=== PATIENT | female | born 1985 | race Caucasian/White ===

== ENCOUNTER → 2018-02-09 10:32 | Outpatient (CLI) | payer OTHER, SELFPAY ==
[2018-02-09 10:02] VITALS: BMI 28.5
== END ==
PROVIDERS: Family Provider Family Medicine; PCP Family Medicine; Visit Provider Obstetrics & Gynecology
DX: Z34.90 Encounter for supervision of normal pregnancy, unspecified, unspecified trimester (principal)
CPT/HCPCS: 36415

== ENCOUNTER → 2018-02-23 09:12 | Outpatient (CLI) | payer OTHER, SELFPAY ==
[2018-02-09 10:02] VITALS: BMI 28.5
--- NOTE | 2018-02-23 | ASPOS_PTH ---
PATIENT: GUS KELLEY LOC: LAB U#:[id number] AGE/SX: 39/F ROOM: RE02/23/[address]: Dr. Chuy Ugalde MD : 1985 BED: DIS: SPEC #: [id number] RECD: 02/23/18 10:38 STATUS: KRISSY REAimee #: [id number] FELIPA: 02/23/18 00:[address]: Chuy Ugalde DEPT: CYTOLOGY RECD BY: Elvin Martin ENTERED: 02/23/18 10:38 SP TYPE: ASP HERE OTHR DR: Dr. Hari Stokes MD Tissues: Preauricular region Procedures: Pap Stain (control) Special Stain Group II Surgery Specimen Level IV Diff Quik Stain (control) Cell Block Cytology Other Fine Needle Asp on Site HEADER OPERATION: Right preauricular mass FNA PRE-OP DIAGNOSIS: Right preauricular mass TISSUE SUBMITTED: Right preauricular mass FNA, smear and fluid for cytology and cell block DIAGNOSIS CYTOLOGY Fine needle aspiration, right parotid/free auricular mass (smears and cell block): Consistent with benign salivary gland cyst. MERCY:erin 02/26/18 COMMENT The specimen is evaluated at the time of FNA by Dr. Garcia. Immediate Evaluation = Consistent with benign cyst contents. CYTOLOGY STUDY Slides are reviewed. CYTOLOGY GROSS Received is 0.5 ml of reddish fluid labeled with the patient's name, and designated right preauricular mass FNA. Four imprints and one pap are made from the submitted fluid and the rest is added to CytoLyt for cell block preparation. Submitted for cytology study. AM:mei 02/23/18 TC: 5 CPT: 65611, 81342, 57535, 17551
--- OUTSIDE RECORDS SUMMARY | 2018-04-29 16:08 | XMS RPT_ITS ---
:1985 Author Organization OHIP Care Team Providers Name Role Phone JOSE ROBERTO QUINTON Attending Unavailable ALYSHA FREIRE Referring Unavailable AVI PRIMARY MD SILVESTRE Primary Care Unavailable Alysha Freire Attending Unavailable Hari Stokes Referring Unavailable Alysha Freire Attending Unavailable Hari Stokes Primary Care Unavailable Hari Stokes Attending Unavailable Anthony Ugalde Attending Unavailable Anthony Ugalde Referring Unavailable Hari Stokes Primary Care Unavailable Peyton Gotti Attending Unavailable Hari Stokes Referring Unavailable aHri Stokes Primary Care Unavailable PROBLEMS PROBLEMS DATE TYPE CONDITION / CODE ATTENDING STATUS SOURCE 02/22/2018 Unknown Z34.90 - Encounter Nathanaelanthalice, Active [place] for supervision of [facility] normal , Hospital unspecified, Repository unspecified trimester / Z34.90(ICD-10) 02/09/2018 Unknown Z3A.16 - 16 weeks Marcanthalice, Active [place] gestation of [facility] / Hospital Z3A.16(ICD-10) Repository 02/09/2018 Unknown O99.820 - Marcanthony, Active [place] Streptococcus B [facility] complicating Repository / O99.820(ICD-10) 02/09/2018 Unknown Z34.02 - Encounter Marcanthalice, Active [place] for supervision of [facility] normal first Hospital , second Repository trimester / Z34.02(ICD-10) 02/09/2018 Unknown Z23 - Encounter for Tani, Active [place] immunization / [facility] Z23(ICD-10) Hospital Repository 06/19/2017 Unknown N92.6 - Irregular Shen, Peyton Active [place] menstruation, [facility] unspecified / Hospital N92.6(ICD-10) Repository PROCEDURES PROCEDURES No Procedure Records FoundRESULTS RESULTS ASP DONE IN LAB Observed: 02/23/2018 Status: F Source: [place] 12:00 AM [facility] REPOSITORY Patient: GUS KELLEY : 1985 () Acct Num: [id number] Phys: Tram GONZALEZ,[place] Unit Num: [id number] Loc: LAB Specimen: [id number] Received: 02/23/18 - 1038 Spec Type: ASP HERE TISSUES 1 TISSUES: Preauricular region COMMENT The specimen is evaluated at the time of FNA by Dr. Garcia. Immediate Evaluation = Consistent with benign cyst contents. CYTOLOGY GROSS Received is 0.5 ml of reddish fluid labeled with the patient's name, and designated right preauricular mass FNA. Four imprints and one pap are made from the submitted fluid and the rest is added to CytoLyt for cell block preparation. Submitted for cytology study. AM:mei 02/23/18 TC: 5 CPT: 79229, 27816, 61315, 30585 CYTOLOGY STUDY Slides are reviewed. DIAGNOSIS CYTOLOGY Fine needle aspiration, right parotid/free auricular mass (smears and cell block ): Consistent with benign salivary gland cyst. AM:erin 02/26/18 HEADER OPERATION: Right preauricular mass FNA PRE-OP DIAGNOSIS: Right preauricular mass TISSUE SUBMITTED: Right preauricular mass FNA, smear and fluid for cytology and cell block Signed Doni Garcia DO 02/26/18 <signature on file> Performed By: #### PASPOS #### [facility] [address] [place], [address] MISCELLANEOUS LAB Collected: 02/09/2018 Status: F Source: [place] PROCEDURE 10:46 AM [facility] REPOSITORY Order Comment: Comments: [id number] a-Fetoprotein (AFP), Maternal Serum for Test(s) Ordered: [id number] a-Fetoprotein (AFP), Maternal Serum for TYPE CODE TESTS RESULT OUT OF RANGE REFERENCE UNITS LAB L801.1541 Normal [facility] TEST Result Comment: TEST RESULT LIMITS AFP, Serum, Open Spina Bifida Results Report Test Results: *Screen Negative* Gest. Age on Collection Date 16.7 weeks Gestat. Age Based On LMP Recalculations are not recommended when gestational dating by LMP and ultrasound are within 10 days. M[age] EVERARDO 30.11 yr Race Weight 174 lbs Insulin Dep Diabetes No Multiple Gestation No AFP Value 20.8 ng/mL AFP MoM 0.65 OSBR [place] 1 [place] [address] Interpretation Interpretation: Screen Negative This result is screen negative for OSB. The AFP MoM calculated is based on the gestational age provided. MS-AFP can identify up to 80% of open neural tube defects. Closed neural tube defects and some open defects may not be detected by this test. This test does not screen for Down Syndrome or Trisomy 18. If screening for Down Syndrome or Trisomy 18 is desired, contact Genetic Customer Services to discuss available options. The [employer] recommends amniocentesis be offered to women age 35 and older. Comment: Yanna Mckeon, Ph.D., [facility] Principal Genetics Guest Services References: Available Upon Request. Multiples Of Median Cutoffs For AFP Elevations Etienne 2.5 Black 2.8 IDD 2.0 Twins 4.5 Abbreviation Definitions IDD - Insulin Dep Diabetes OSBR - Open Spina Bifida Risk For further inquiries contact [facility] Genetics Services at [phone]. TESTING PERFORMED AT [facility]. ORIGINAL REPORT ON FILE IN LAB CONTAINS ADDITIONAL TEST SITE INFORMATION. Performed By: #### L801.1541 #### [facility] [address] [place], [address] [employer]UTTLELESS [employer] OFFICE VISIT Observed: 02/09/2018 Status: F Source: [place] REPORT 10:30 AM [facility] REPOSITORY [facility] [place] [address] [place] [address] OFFICE VISIT Date of Service: 02/09/18 MR#: [id number] Acct: [id number] Name: GUS KELLEY Rep #: [id number] : 1985 Provider: Alysha Freire MD Age/Sex: 32/F Location[place] [facility] [place] Status: Signed with Addenda ADDENDUM by Sujey Yi on 02/09/18 at 1030 OFFICE PROCEDURES Office Procedure Documentation entered by Sujey Yi 02/09/18 10:30: Office Meds Flucelvax Quad 3911-4431 (PF) Performing Provider: Alysha Freire MD Administered by: Sujey Yi on 02/09/18 10:30 Dose Route Admin Location Lot Number Expiration Date NDC Hand Picker 60 mcg IM left arm [id number] 08/05/18 31381-524-99 [employer] 02/09/18 1030 <Electronically signed by Sujey Yi > Date Sujey Yi cc: * Signed Intake Vital Signs02/09/18 Body Mass Index (BMI) 28.5 02/09/18 Height 5 ft 4 in 02/09/18 Weight: 174 lb 02/09/18 Body Mass Index (BMI) 29.8 02/09/18 Blood Pressure 110/64 Intake Visit Reasons: 16 WK OB- RGI PT - RECORDS RECEIVED Business Executive Required: No Is patient in pain?: No Allergies adhesive Allergy (Mild, Verified 02/09/18 09:47) Unknown Sulfa (Sulfonamide Antibiotics) Allergy (Verified 02/09/18 09:47) Hives Medications Cholecalciferol (Vitamin D3) [Vitamin D3] 1,000 unit PO DAILY 07/28/16 [History Confirmed 02/09/18] [place]-3 Fatty Acids [Fish Oil] 500 mg PO DAILY 07/28/16 [History Confirmed 02/09/18] Vits [Prenatabs FA] 1 tab PO DAILY 07/28/16 [History Confirmed 02/09/18] ciclopirox 1 % shampoo 5 ml TOPICAL 2XW 02/03/17 [History Confirmed 02/09/18] clobetasol 0.05 % scalp solution 1 applic TOPICAL ONCE 02/03/17 [History Confirmed 02/09/18] clobetasol 0.05 % shampoo 1 applic TOPICAL ONCE 02/03/17 [History Confirmed 02/09/18] Last Menstral Period: 10/15/17 Zika: Zika virus screening: Negative : No PFSH PFSH Medical History Infertility (Acute) Polycystic ovaries (Acute) Seizures (Acute) Surgical History History of tonsillectomy (Acute) wisdom teeth (Acute) Family History Grandmother Diabetes Hypertension Aunt Breast cancer Lupus Grandfather Heart disease Myocardial infarction Unknown Uterine cancer Social History Smoking Status: Never smoker alcohol intake: never substance use type: does not use caffeine: Yes what type of physical activity do you participate in: none seatbelt use: always do you feel safe at home: Yes additional social history: Shyam- at the [facility] Pregancy History 2 Elective abortions Hx Para 0 Spontaneous abortions HPI 16 WK OB- RGI PT - RECORDS RECEIVED: Details: GUS KELLEY is a 32 year old who presents for routine OB visit. OB Visit EVERARDO Calculator Estimated Delivery Date 07/22/18 Based on LMP (certain) 10/15/17 Current WG 16w 5d Number 1 Specific Issue/Plans flu vaccine: given tdap vaccine: [] rhogam: [] LARC form signed: [] labor support person: [] pain management: [] cut cord/dad catch: [] : [] PP control planned: [] discussed possible routes of delivery and associated risks: [] special requests: [] Initial Weight: 163 lb Date Weight BP Urine PrFHR FuHt Pres MoCTX DilationFetal StVisit NoProviderComments E ot v te GA G Effac lucose ed Visit Notes Visit Date: 02/09/18 no vb cramping transfer from [facility] Alysha Freire MD on 02/09/18 ACOG First Trimester First Trimester: Discussed Diagnostics Diagnostics Labs Blood Type O POSITIVE 12/08/16 Hct 37.2 % (37-47) 12/08/16 Hgb 12.1 g/dl (12.0-15.0) 12/08/16 VZV IgG Antibody < 135 index (Immune >165) L 12/08/16 Rubella IgG Antibody 409.7 IU/mL 12/08/16 Miscellaneous Test 02/03/17 Details: HIV: Urine Culture: Sequential Screen: NIPT Screen: Results [id number] Office Urine Glucose Negative Last Edit by Sandi Dixon on 02/09/18 10:01 Office Urine Protein Negative Last Edit by Sandi Dixon on 02/09/18 10:01 Assessment AND Plan Problems 1. 16 weeks gestation of Z3A.16 nl NIPT. afp ordered. anatomy scan ordered. 2. GBS (group B Streptococcus carrier), +RV culture, currently O99.820 in urine, pcn in labor 3. Encounter for supervision of normal first in second trimester Z34.02 [place] 07/24/18 boy Oz shyam Plan ACOG trimester education reviewed and updated. see problem list details for updated plan management information and see below for orders placed at this visit. GA appropriate handout given. Orders Orders: Coding Level of Care Code OB Routine Diagnoses 16 weeks gestation of Z3A.16 Weeks of gestation: 16 weeks GBS (group B Streptococcus carrier), +RV culture, currently O99.820 Encounter for supervision of normal first in second trimester Z34.02 Normal : normal first Trimester: second trimester 02/09/18 1019 <Electronically signed by Alysha Freire MD> Date Alysha Freire MD Cosigner Signature: Date (if applicable) CC: SH[employer]TLE[employer]ESS [employer]OM WE[employer]ER OFFICE VISIT Observed: 06/19/2017 Status: F Source: [place] REPORT [facility] [address] [place] [address]. [address] [place] [address] OFFICE VISIT Date of Service: 06/19/17 MR#: [id number] Acct: [id number] Name: GUS KELLEY Rep #: [id number] : 1985 Provider: TANG Gotti Age/Sex: 31/F Location: [facility] [place] Status: Signed Intake Vital Signs06/19/17 Height 5 ft 4 in 06/19/17 Weight: 166 lb 4 oz 06/19/17 Body Mass Index (BMI) 28.5 06/19/17 Blood Pressure 107/69 Intake Visit Reasons: bleeding between menses, cyst in vaginal area Chief Complaint: Spotting between periods, cyst Business Executive Required: No Allergies adhesive Allergy (Mild, Verified 06/19/17 09:41) Unknown Sulfa (Sulfonamide Antibiotics) Allergy (Verified 06/19/17 09:41) Hives Medications Cholecalciferol (Vitamin D3) [Vitamin D3] 1,000 unit PO DAILY 07/28/16 [History Confirmed 06/19/17] [place]-3 Fatty Acids [Fish Oil] 500 mg PO DAILY 07/28/16 [History Confirmed 06/19/17] Vits [Prenatabs FA] 1 tab PO DAILY 07/28/16 [History Confirmed 06/19/17] ciclopirox 1 % shampoo 5 ml TOPICAL 2XW 02/03/17 [History Confirmed 06/19/17] clobetasol 0.05 % scalp solution 1 applic TOPICAL ONCE 02/03/17 [History Confirmed 06/19/17] clobetasol 0.05 % shampoo 1 applic TOPICAL ONCE 02/03/17 [History Confirmed 06/19/17] Is last menstrual period known: Yes Last Menstral Period: 06/02/17 Post menopausal: No Patient : No : No PFSH Medical History Infertility (Acute) Polycystic ovaries (Acute) Seizures (Acute) Surgical History History of tonsillectomy (Acute) wisdom teeth (Acute) Family History Grandmother Diabetes Hypertension Aunt Breast cancer Lupus Grandfather Heart disease Myocardial infarction Unknown Uterine cancer Social History Smoking Status: Never smoker alcohol intake: never substance use type: does not use caffeine: Yes what type of physical activity do you participate in: none seatbelt use: always do you feel safe at home: Yes additional social history: Shalini Santoyo at the [facility] HPI bleeding between menses, cyst in vaginal area: Details: GUS KELLEY is a 31 year old who presents for had off and on light pink to red bleeding X 2 weeks and now no bleeding X 6 days. Infertility X 5 years. Did have SAB in Oct 2016. She has seen MALIKA without intervention yet. Since she conceived on her own last fall will keep attempting a few more months. She is considering clomid or femara if not in next few months. She also had a small lump that was tender inner right labia last few days but smaller last night. Female Reproductive History Last Menstral Period: 06/02/17 Pregancy History 1 Elective abortions Hx Para 0 Spontaneous abortions Exam External Female Exam: normal external appearance (lump inner right labia has no resolved. Nonerythematous, nontender) Speculum Exam - Vagina: normal appearance of the vagina Speculum Exam - Cervix: normal appearance of the cervix Bimanual Exam- Vagina AND Uterus: normal bimanual exam, uterine size normal, uterus non-tender Bimanual Exam- Adnexa, other: normal adnexae, adnexae non- tender, no adnexal masses Assessment AND Plan Problems 1. Irregular menstrual cycle N92.6 Plan She is no longer having bleeding and no discomfort. Will monitor to see if recurs. She did lose 14# this month doing whole 30 diet Will notify me if recurs and then proceed with US. Coding Level of Care Code Off vis,est,level 3 Diagnoses Irregular menstrual cycle N92.6 06/19/17 1000 <Electronically signed by Peyton WOLF> Date Peyton WOLF Cosigner Signature: Date (if applicable) CC: ALLERGIES ALLERGIES DATE TYPE / CODE NAME / CODE REACTION SEVERITY SOURCE 02/09/2018 Drug Sulfa Hives Unknown [facility] Allergy/4160 (Sulfonamide [facility] [address]015(SNOMED Antibiotics)/ Repository CT) [id number](RX NORM) 02/09/2018 Drug adhesive/F006 Unknown [facility] Allergy/4160 403448(RXNORM [facility] 40511(SNOMED ) Repository CT) ENCOUNTERS ENCOUNTERS ADMIT/DISCHARGE ACCOUNT ADMITTING ENCOUNTER LOCATION SOURCE NUMBER CLASS 03/01/2018 [id number] Ambulatory Building:[facility] Repository 02/23/[id number] [facility] ing:LAB Repository 02/09/2018 [id number] Ambulatory [facility] ing:PAVLAB Repository 02/09/2018/02/09/19 [id number] Ambulatory BMSBuilding:[facility] [place] [facility] Repository 01/02/2018 [id number] Ambulatory BMSBuilding:[place] [facility] Repository 06/19/2017/06/20/19 [id number] Ambulatory BMSBuilding:B [place] [facility] Repository PAYERS PAYERS ENCOUNTER GUARANTOR PAYER SUBSCRIBER SOURCE 03/01/2018 GUS Bonny [facility] HELLERDOB: Insurance:MEDICAL HELLERDOB: [facility] [id number] Repository SHAD Number: [address] [place] [id number], [place] [address]Ooc: 330) Date: [phone] () 02/23/2018 GUS Chen Primary GUS Chen [place] [id number] Insurance:MEDICAL HELLERDOB: [facility] [id number] Number: Repository [address]Pgc: 330 [id number] [phone] () Date:2189-12-11VR [address] [address]QL: 02/23/2018 Secondary NOT GIVENUNK [place] Insurance:SELF PAY [facility] Number: Effective Repository Date:2018-02-21 02/09/2018 GUS Chen Primary GUS Chen [place] [id number] Insurance:MEDICAL HELLERDOB: [facility] [id number] Number: Repository [address]Efl: 330 [id number] [phone] () Date:[id number] [address]QV: 02/09/2018 Secondary NOT GIVENUNK [place] Insurance:SELF PAY [facility] Number: Effective Repository Date:2018-02-09 02/09/2018 GUS Primary GUS [place] [id number] Insurance:MEDICAL HELLERDOB: [facility] [id number] Number: Repository [address]Mzb: 330 [id number] [phone] (HP) Date:[id number] [address]TN: 02/09/2018 Secondary NOT GIVENUNK [place] Insurance:SELF PAY [facility] Number: Effective Repository Date:2018-01-17 01/02/2018 GUS Chen Primary GUS Man [id number] Insurance:MEDICAL HELLERDOB: [facility] [id number] Number: Repository [id number]: 330 [id number] [phone] (HP) Date:9736-14-51BF [address] [address]MA: 01/02/2018 Secondary NOT GIVENUNK [place] Insurance:SELF PAY [facility] Number: Effective Repository Date:2018-01-02 06/19/2017 GUS Primary GUS Man [id number] Insurance:MEDICAL HELLERDOB: [facility] [id number] Number: Repository [address]Jly: 330 [id number] [phone] (HP) Date:4168-45-24BH [address] [address]QX: 06/19/2017 Secondary NOT GIVENUNK [place] Insurance:SELF PAY [facility] Number: Effective Repository Date:2017-06-19
== END ==
PROVIDERS: Family Provider Family Medicine; PCP Family Medicine; Referring Provider Otolaryngology; Visit Provider Otolaryngology
DX: R22.1 Localized swelling, mass and lump, neck (principal)
CPT/HCPCS: 10021; 88161; 88305; 88313

== ENCOUNTER → 2018-05-03 14:10 | Outpatient (CLI) | payer OTHER, SELFPAY ==
[2018-05-03 13:47] VITALS: BMI 31.0
[2018-05-03 14:53] LABS: Absolute Lymphocyte Count 2.11 X10^3/ul (0.83-4.51); Absolute Neutrophil Count 10.3 X10^3/uL (2.0-7.7); Basophil# 0.02 X10^3/uL; Basophil% 0.1 % (0-1); Eosinophil# 0.15 X10^3/uL; Eosinophils% 1.1 % (0-5); Hematocrit 33.7 % (37-47); Hemoglobin 10.9 g/dl (12.0-15.0); Lymphocyte # 2.11 X10^3/ul (4.0); Lymphocyte % 15.7 % (19-41); Mean Corp Hgb Conc 32.3 g/gl (32-36); Mean Corpuscular Hgb 28.8 pg (27.0-32.0); Mean Corpuscular Volume 89.2 fL (81-99); Mean Platelet Vol. 9.9 fl (6.2-12.0); Monocyte% 5.2 % (0-10); Neutrophil # 10.31 X10^3/uL (2.7-7.7); Neutrophil % 76.5 % (47-70); Platelet Count 334 K/mm3 (150-450); RBC Distribution Width CV 13.4 % (11.6-14.6); RBC Distribution Width SD 43.4 fl (35.1-43.9); Red Blood Count 3.78 M/mm3 (4.2-5.4); White Blood Count 13.5 K/mm3 (4.4-11.0)
[2018-05-03 14:54] LABS: POSITIVE COUNT NO; POSITIVE DIFFERENTIAL NO; POSITIVE MORPHOLOGY NO
[2018-05-03 15:00] LABS: Glucose Challenge Gest 1H 50g 145 mg/dL (70-140)
== END ==
PROVIDERS: Nurse Practitioner Women's Health; Family Provider Family Medicine; PCP Family Medicine; Referring Provider Obstetrics & Gynecology; Visit Provider Obstetrics & Gynecology
DX: Z34.90 Encounter for supervision of normal pregnancy, unspecified, unspecified trimester (principal)
CPT/HCPCS: 36415; 82950; 85025

== ENCOUNTER → 2018-05-10 08:38 | Outpatient (CLI) | payer OTHER, SELFPAY ==
[2018-05-03 13:47] VITALS: BMI 31.0
[2018-05-10 10:28] LABS: Glucose GTT-Gestation. Fasting 71 mg/dL (<105)
[2018-05-10 10:41] LABS: Glucose GTT-Gestational 1 Hr 130 mg/dL (<190)
[2018-05-10 12:31] LABS: Glucose GTT-Gestational 2 Hr 117 mg/dL (<165)
[2018-05-10 12:32] LABS: Glucose GTT-Gestational 3 Hr 89 L (<145)
== END ==
PROVIDERS: Nurse Practitioner Women's Health; Family Provider Family Medicine; PCP Family Medicine; Referring Provider Obstetrics & Gynecology; Visit Provider Obstetrics & Gynecology
DX: O99.810 Abnormal glucose complicating pregnancy (principal); Z3A.00 Weeks of gestation of pregnancy not specified
CPT/HCPCS: 36415; 82951; 82952

== ENCOUNTER → 2018-07-10 | Outpatient (CLI) | payer OTHER, SELFPAY ==
[2018-07-06 10:07] VITALS: BMI 31.0
--- NOTE | 2018-07-10 08:02 | US_ITS ---
STUDY: SECOND AND THIRD TRIMESTER OBSTETRICAL ULTRASOUND - LIMITED REASON FOR EXAM: Female, 32 years old. Evaluate growth, uterine size discrepancy LMP: 10/18/2017 PRIOR ULTRASOUND: None. TECHNIQUE: Transabdominal TECHNICAL QUALITY: Adequate. FINDINGS: There is a single intrauterine fetus. The fetus is in a cephalic presentation. There is demonstrated cardiac activity with a heart rate of 155 bpm. There is a normal amniotic fluid volume. The largest amniotic fluid pocket measures 6.8 cm. The amniotic fluid index (KIM) is 17.4 cm. The placenta is posterior in location and is not low lying. There are Grade 2 placental changes. The cervix measures 3.2 cm in length. BIOMETRY: BPD: 9.39 cm: 38 weeks, 2 days HC: 33.40 cm: 38 weeks, 2 days AC: 33.62 cm: 37 weeks, 4 days FL: 7.37 cm: 37 weeks, 5) Cephalic index: 82% FL/AC: 22% FL/BPD: 78% HC/AC: 0.99 Estimated weight 3291 g, +/- 481 g. Estimated weight growth percentile 58% Age by LMP: 37 weeks, 6 days. EVERARDO by LMP: 07/25/2018. age by current US: 38 weeks, 0 days. EVERARDO by current US: 07/24/2018. US/OB Limited With Biometrics IMPRESSION: Single viable intrauterine of approximately 38 weeks 0 days gestational age by current ultrasonographic measurement. A heart rate of 155 bpm is noted. The fetus is in cephalic presentation. The KIM is within normal limits. Electronically Signed: Jignesh Desai MD at 21:37 EDT , Service support ,
== END | disposition home or self-care (01) ==
PROVIDERS: Family Provider Family Medicine; PCP Family Medicine; Referring Provider Obstetrics & Gynecology; Visit Provider Obstetrics & Gynecology
DX: O26.843 Uterine size-date discrepancy, third trimester (principal); Z3A.00 Weeks of gestation of pregnancy not specified
CPT/HCPCS: 76816

== ENCOUNTER 2018-07-22 14:00 | Outpatient (CLI) | payer OTHER, SELFPAY ==
[2018-07-18 10:15] VITALS: BMI 31.0
[2018-07-22 15:56] VITALS: BMI 33.6
--- NOTE | 2018-07-22 16:28 | OB.TRI.PN ---
Progress Notes Date of Service: 07/22/18 Progress Note: Patient seen for false labor Minimal cervical change patient comfortable and ready to go home 2 cm dilated had some small vaginal bleeding but denies any vaginal loss of fluid admits good movement and only mild contractions heart tones: 145 moderate variability reactive no decelerations category I tracing [place]: regular Assessment and plan 32-year-old G1, P0 at 40 weeks with false labor DC home labor precautions
== END 2018-07-22 15:55 | disposition home or self-care (01) ==
LOC: WPOUT 14:35 → WP 14:36
PROVIDERS: Family Provider Family Medicine; PCP Family Medicine; Visit Provider Obstetrics & Gynecology
DX: O47.1 False labor at or after 37 completed weeks of gestation (principal); Z3A.40 40 weeks gestation of pregnancy
CPT/HCPCS: 59025; 59050; 99218; G0378

== ENCOUNTER 2018-07-23 01:37 | Inpatient (IN) | payer OTHER, SELFPAY ==
[2018-06-27 13:44] VITALS: BMI 31.0
[2018-07-22 15:56] VITALS: BMI 33.6
[2018-07-23] MEDS: Lactated Ringers 1,000 ML 50 ML IV (02:05)
[2018-07-23 02:06] VITALS: BMI 34.0
[2018-07-23 02:30] LABS: Absolute Lymphocyte Count 1.93 X10^3/ul (0.83-4.51); Absolute Neutrophil Count 11.1 X10^3/uL (2.0-7.7); Basophil# 0.01 X10^3/uL; Basophil% 0.1 % (0-1); Eosinophil# 0.13 X10^3/uL; Eosinophils% 0.9 % (0-5); Hematocrit 35.7 % (37-47); Hemoglobin 11.9 g/dl (12.0-15.0); Lymphocyte # 1.93 X10^3/ul (4.0); Lymphocyte % 13.3 % (19-41); Mean Corp Hgb Conc 33.3 g/gl (32-36); Mean Corpuscular Hgb 29.5 pg (27.0-32.0); Mean Corpuscular Volume 88.6 fL (81-99); Mean Platelet Vol. 10.4 fl (6.2-12.0); Monocyte# 1.25 X10^3/uL; Monocyte% 8.6 % (0-10); Neutrophil # 11.14 X10^3/uL (2.7-7.7); Neutrophil % 76.5 % (47-70); Platelet Count 333 K/mm3 (150-450); RBC Distribution Width CV 14.4 % (11.6-14.6); Red Blood Count 4.03 M/mm3 (4.2-5.4); White Blood Count 14.6 K/mm3 (4.4-11.0)
[2018-07-23 02:31] LABS: POSITIVE COUNT NO; POSITIVE DIFFERENTIAL NO; POSITIVE MORPHOLOGY NO
[2018-07-23] MEDS: 0.9% Saline Lock 10 ML Syringe IV ×2 (09:59→16:50)
--- NOTE | 2018-07-23 11:06 | PCM.HP.OB ---
- Problem List (1) Active labor at term Status: Acute (2) Susceptible to varicella (non-immune), currently Status: Acute (3) Abnormal glucose tolerance affecting , antepartum Status: Acute Comment: 3 hr GTT nl (4) Status: Acute Qualifiers: Weeks of gestation: 39 weeks Qualified Code(s): Z3A.39 - 39 weeks gestation of Comment: nl NIPT. anatomy scan normal. PRR AFP results negative (5) GBS (group B Streptococcus carrier), +RV culture, currently Status: Acute Comment: in urine, pcn in labor (6) Supervision of normal Status: Acute Qualifiers: Normal : normal first Trimester: third trimester Qualified Code(s): Z34.03 - Encounter for supervision of normal first , third trimester Comment: PRR EVERARDO 07/24/18 boy Oz krista History Date of Admission: 07/23/18 Final EVERARDO: 07/24/18 Gestational age: 39w6d History of this : This is a 32 year-old, at 39w6d weeks gestational age presents IAL with regular ctx, small vb but no lof. Admits good movement and denies any complications with the . Medical History: Medical History (Last Reviewed 07/18/18 @ 10:14 by Sujey Yi) Infertility Polycystic ovaries E28.2 Seizures R56.9 Surgical History: Surgical History (Last Reviewed 07/18/18 @ 10:15 by Sujey Yi) History of tonsillectomy Z98.890, Z90.89 History of wisdom tooth extraction, class II edentulism K08.492 Allergies adhesive Allergy (Mild, Verified 07/23/18 02:02) Unknown latex Allergy (Verified 07/23/18 02:02) Unknown Sulfa (Sulfonamide Antibiotics) Allergy (Verified 07/23/18 02:02) Hives Home Medications: Home Medications Vits [Prenatabs FA] 1 tab PO DAILY 07/28/16 ciclopirox 1 % shampoo 5 ml TOPICAL 2XW 02/03/17 clobetasol 0.05 % scalp solution 1 applic TOPICAL ONCE 02/03/17 clobetasol 0.05 % shampoo 1 applic TOPICAL ONCE 02/03/17 Ferrous Sulfate [Iron] 325 mg PO DAILY 07/23/18 Smoking Status: Never smoker Alcohol: None Number of Fetus(es): 1 Heart Tracing: intermittent auscultation- 130 with variability no decelerations contraction every 3-5 minutes History Past Pregnancies: Past Pregnancies 2 early miscarriages Delivery Date Name GA/Weeks Outcome Route Weight Gender Labor Length Anesthesia Delivery Location Provider FOB Labs: Mom's Problem List Problem Status Onset Code Active labor at term Acute Mom's Labs & Results 07/23/18 07/23/18 07/24/18 02:05 02:05 00:55 WBC 14.6 H Pending RBC 4.03 L Pending Hgb 11.9 L Pending Hct 35.7 L Pending MCV 88.6 Pending MCH 29.5 Pending MCHC 33.3 Pending RDW 14.4 Pending RDW Differential 47.0 H Pending Plt Count 333 Pending MPV 10.4 Immature Gran % (Auto) 0.600 Neut % (Auto) 76.5 H Pending Lymph % (Auto) 13.3 L [place] % (Auto) 8.6 Eos % (Auto) 0.9 Baso % (Auto) 0.1 Absolute Neuts (auto) 11.1 H Pending Absolute Lymphs (auto) 1.93 Total Counted Not Reportable Pending Sodium Potassium Chloride Carbon Dioxide Anion Gap BUN Creatinine Est GFR (MDRD) Af Amer Est GFR (MDRD) Non-Af BUN/Creatinine Ratio Glucose Calcium Blood Type O POSITIVE Antibody Screen NEGATIVE 07/24/18 00:55 WBC RBC Hgb Hct MCV MCH MCHC RDW RDW Differential Plt Count MPV Immature Gran % (Auto) Neut % (Auto) Lymph % (Auto) [place] % (Auto) Eos % (Auto) Baso % (Auto) Absolute Neuts (auto) Absolute Lymphs (auto) Total Counted Sodium Pending Potassium Pending Chloride Pending Carbon Dioxide Pending Anion Gap Pending BUN Pending Creatinine Pending Est GFR (MDRD) Af Amer Pending Est GFR (MDRD) Non-Af Pending BUN/Creatinine Ratio Pending Glucose Pending Calcium Pending Blood Type Antibody Screen Course Did the patient receive Yes care? Labs Blood Type: O RH: POSITIVE RPR/VDRL/Syphilis Nonreactive Rubella status Immune HbSAg Negative Date Done: 01/02/18 Chlamydia Negative Gonorrhea Negative HIV/AIDS Non-Reactive Group B Strep: Positive Current Obstetrical History Gestational Diabetes No Incompetent Cervix No Infertility Yes IUGR No Macrosomia No Hypertension/Pre-eclampsia No Placenta Previa/Abruption No PTL/PROM No Uterine anomaly No Oligohydramnios No Polyhydramnios No Multiple gestation No Past Medical History Asthma No Diabetes No Hypertension No Heart disease No Mitral valve prolapse No Neurologic/Seizure disorder/ Yes: febrile seizures as child Migraines Kidney disease No Liver disease No Varicosities No Clotting disorders/Hx of DVT No Thyroid Dysfunction No Other medical diseases No Psychiatric disorders No Major trauma No Abnormal PAP smear No Sleep apnea No Mammogram in the last 2 years No Social History Marital Status: Alleged father Krista Hx Smoking No Smoking Status Never smoker Expected Infant Delivery Method: Spontaneous Vaginal Review of Systems Constitutional: Denies: Fever, Malaise Eyes: Denies: Blurred vision, Vision Change HEENT: Denies: Head Aches, Visual Changes Cardiovascular: Denies: Chest Pain, Palpitations Respiratory: Denies: Cough, Shortness of Breath, Wheezing Gastrointestinal: Denies: Abdominal Pain, Diarrhea, Nausea, Vomiting Genitourinary: Denies: Dysuria, Hematuria Musculoskeletal: Denies: Joint Pain, Muscle pain Skin: Denies: Lesions, Rash Neurological: Denies: Blurred vision, Focal weakness, Headaches Psychiatric: Denies: Anxiety, Depression Endocrine: Denies: Heat/ Cold Intolerance Hematologic/ Lymphatic: Denies: Easy Bruising, Easy Bleeding Physical Exam General: Alert, Cooperative, No apparent distress HEENT: Atraumatic, Normocephalic. Negative for: Thyromegaly, Lymphadenopathy Cardiovascular: Regular rate Lungs: Normal air movement Abdomen: Soft, Non Tender, Gravid Neurological: Deep Tendon Reflexes 2+/4 and Symmetrical, Neuro grossly intact. Negative for: Clonus MERCHANDISE BUYER: Normal external genitalia. Negative for: Vulvar lesions Estimated gestational size: Appropriate for gestational size Presentation: Cephalic Cervix Dilation (cm): 4 Assessment/Plan All Active Problems (Last Reviewed 07/18/18 @ 10:14 by Sujey Yi) Active labor at term (Acute) Susceptible to varicella (non-immune), currently (Acute) Abnormal glucose tolerance affecting , antepartum (Acute) (Acute) GBS (group B Streptococcus carrier), +RV culture, currently (Acute) Supervision of normal (Acute) Oligo-ovulation (Resolved) This is a 32 year-old, at 39 weeks gestational age presents IAL. Patient presents IAL, plan expectant management for , pitocin/AROM PRN if needed. Pain management: minimal intervention, nitrous oxide. GBS positive plan IV PCN. Management of any complications: none I have reviewed the PFS and made any clinically relevant updates.
[2018-07-23] MEDS: Oxytocin 30 units/NS 500 ml 30 UNITS/500 ML IV.SOLN 334 UNITS IV (15:18)
[2018-07-23] MEDS: Methylergonovine 0.2 MG/ML Ampul IM (15:25)
[2018-07-23] MEDS: Oxytocin 30 units/NS 500 ml 30 UNITS/500 ML IV.SOLN 167 UNITS IV (15:50)
[2018-07-23 20:15] VITALS: BP 118/71; PULSE 82; RESP 16; TEMP 36.6
--- NOTE | 2018-07-23 21:05 | OP.PCM_ITS ---
Problem List (1) Active labor at term Status: Acute (2) Susceptible to varicella (non-immune), currently Status: Acute (3) Abnormal glucose tolerance affecting , antepartum Status: Acute Comment: 3 hr GTT nl (4) Status: Acute Qualifiers: Weeks of gestation: 39 weeks Qualified Code(s): Z3A.39 - 39 weeks gestation of Comment: nl NIPT. anatomy scan normal. PRR AFP results negative (5) GBS (group B Streptococcus carrier), +RV culture, currently Status: Acute Comment: in urine, pcn in labor (6) Supervision of normal Status: Acute Qualifiers: Normal : normal first Trimester: third trimester Qualified Code(s): Z34.03 - Encounter for supervision of normal first , third trimester Comment: PRR EVERARDO 07/24/18 shelly [place] krista Vaginal Delivery Maternal Presentation: Active Labor 39w6d IAL Amniotic Membrane Rupture Type: Artificial Amniotic Fluid Description: Clear Final EVERARDO: 07/24/18 Gestational age: 39w6d Date of Procedure: 07/24/18 Pre-Operative Diagnosis: ial Post-Operative Diagnosis: same Surgery/ Procedure Performed: Spontaneous Vaginal Delivery Type of Anesthesia: Local with 1% lidocaine Description of Procedure: Patient began pushing on hands and knees. Patient the head in the [MEGAN] presentation. The head was delivered atraumatically. The anterior and posterior shoulders delivered without complication followed by the rest of the and the was placed on the maternal abdomen. Delayed cord clamping was employed for approximately 90 seconds. Cord was clamped and cut and gentle traction was applied to the cord and the placenta delivered spontaneously immediately following it was noted to be missing a significant amount of membr anes but with a three-vessel cord. Exploration of the lower uterine segment cleared out some clot and Methergine was given for mild atony and some membranes were found and removed with a ring forcep. The perineum and vagina were inspected and noted to have a second-degree perineal laceration that was injected with 1% lidocaine and repaired in the usual fashion with Vicryl Rapide. Banjo curette was used to make multiple passes to confirm removal of membranes and only blood clot was removed no membranes were discovered. Bleeding was within normal limits. EBL was 100 cc. Patient and infant tolerated delivery well. Presentation: MEGAN Placental Delivery Description: Spontaneous, Manual Removal, Retained, Curettage Placenta Disposition: [facility] Cord Entanglement: None Estimated Blood Loss: 400 Infant A gender: Male Episiotomy Description: None Laceration: Perineal Extension/lac, 2nd degree Medications given after delivery: IV Pitocin, IM Methergin Complications: None
[2018-07-24] VITALS (8 sets, daily range): BP systolic 94–113; BP diastolic 57–68; PULSE 75–116; RESP 14–18; TEMP 36.3–37.4; O2SAT 99
--- NOTE | 2018-07-24 00:52 | CT_ITS ---
HISTORY: HARD LUMP @ UMBILICUS POST VAGINAL DELIVERY YESTERDAY @ 5PM,NO BM OR FLATUS SINCE,ORAL CONTRAST ONLY PER DRHX:POLYCYSTIC OVARIESCONCERN FOR UMBILICAL HERNIA WITH STRANGULATION TECHNIQUE: Helically acquired images were obtained of the abdomen and pelvis with oral, but without IV contrast. A radiation dose optimization technique was used for this scan. COMPARISON: 38 week obstetrical ultrasound from July 10. CT scan of the abdomen and pelvis from July 28, 2016 FINDINGS: # of images incl. paperwork: 403 LUNG BASES: Dense breast parenchyma consistent with recent and progesterone stimulation. Lungs are clear. Heart is not enlarged. CT abdomen: Bones are unremarkable. The gallbladder remains. Liver, spleen, pancreas, and adrenal glands are normal. The kidneys are normal. The aorta is normal. There is no intra-or extrahepatic biliary ductal dilatation. CT pelvis: No ascites is present. The the uterus remains enlarged extending up above the umbilicus. At the umbilicus, extending anteriorly off of the uterus there is a 4.4 x 2.7 cm mass. This mass has a central density of 46 Hounsfield units. The adjacent uterine myometrium has a density of 40 Hounsfield units. There may have been a similar size mass exophytic to the superior portion of the uterus on the previous study. The mass extends to the umbilicus. The umbilicus is indurated.. The appendix is normal. Series 2 image 73. The bladder is normal. The sigmoid colon is displaced out of the pelvis by the enlarged uterus. It is not abnormally thickened. CT/Abdomen/Pel W ORAL Cont Only IMPRESSION: Enlarged uterus consistent with recent and delivery yesterday. At the umbilicus, posterior to the umbilicus there is a 4.4 x 2.7 cm mass extending off of the uterus poking into the posterior intraperitoneal wall of the umbilicus. This likely represents a uterine leiomyoma. In retrospect this uterine leiomyoma may have been present on the July 28, 2016 study. It is slightly larger on today's study, however, that is not unusual in the gestational setting. Individualized dose optimization techniques were used for this CT. at 0311 Reported and signed by: Junior Navarro MD Electronically Signed: Junior Navarro MD at 3:10 EDT Tel , Service support ,
--- NOTE | 2018-07-24 00:56 | PN.OBGYN_ITS ---
Subjective: patient evaluated after nurse noticed a hard lump at umbilicus after delivery. patient states she has felt an intermittent gap there at the end of but no lump present. she denies any nausea and vomiting and denies any flatus or bowel movement since delivery. lochia moderate. - Physical Exam General: Alert, Oriented x3 Vital Signs Temp Pulse Resp BP Pulse Ox 99.1 F 108 H 16 113/63 99 07/24/18 00:05 07/24/18 00:05 07/24/18 00:05 07/24/18 00:05 07/24/18 00:05 Oxygen Delivery Method Room Air Weight: 198 lb Body Mass Index (BMI) 34.0 Intake and Output for Last 24 Hours 07/22/18 07/23/18 07/24/18 23:59 23:59 23:59 Output Total 1650 / 1650 900 / 900 Balance -1650 / -1650 -900 / -900 Laboratory Tests Past 24 Hrs 07/23/18 07/23/18 02:05 02:05 WBC 14.6 H RBC 4.03 L Hgb 11.9 L Hct 35.7 L MCV 88.6 MCH 29.5 MCHC 33.3 RDW 14.4 RDW Differential 47.0 H Plt Count 333 MPV 10.4 Immature Gran % (Auto) 0.600 Neut % (Auto) 76.5 H Lymph % (Auto) 13.3 L [place] % (Auto) 8.6 Eos % (Auto) 0.9 Baso % (Auto) 0.1 Absolute Neuts (auto) 11.1 H Absolute Lymphs (auto) 1.93 Total Counted Not Reportable Blood Type O POSITIVE Antibody Screen NEGATIVE Medical Necessity - Tobacco Use Smoking Status: Never smoker Assessment/Plan All Active Problems (Last Reviewed 07/18/18 @ 10:14 by Sujey Yi) Susceptible to varicella (non-immune), currently (Acute) Abnormal glucose tolerance affecting , antepartum (Acute) (Acute) GBS (group B Streptococcus carrier), +RV culture, currently (Acute) Supervision of normal (Acute) Oligo-ovulation (Resolved) s/p PPD 1 recommend stat cbc bmp and CT scan to evaluate umbilical hernia
--- NOTE | 2018-07-24 00:59 | NURSING ---
0030, firm round lump near umbillicus area noted on both exams, movable, notified Dr. Bauer she is going to see pt.
[2018-07-24 01:08] LABS: Absolute Lymphocyte Count 1.48 X10^3/ul (0.83-4.51); Absolute Neutrophil Count 19.6 X10^3/uL (2.0-7.7); Basophil# 0.02 X10^3/uL; Basophil% 0.1 % (0-1); Eosinophil# 0.01 X10^3/uL; Hematocrit 29.9 % (37-47); Hemoglobin 10.1 g/dl (12.0-15.0); Lymphocyte # 1.48 X10^3/ul (4.0); Lymphocyte % 6.4 % (19-41); Mean Corp Hgb Conc 33.8 g/gl (32-36); Mean Corpuscular Hgb 29.6 pg (27.0-32.0); Mean Corpuscular Volume 87.7 fL (81-99); Mean Platelet Vol. 10.3 fl (6.2-12.0); Monocyte# 2.01 X10^3/uL; Monocyte% 8.6 % (0-10); Neutrophil % 84.4 % (47-70); Platelet Count 306 K/mm3 (150-450); RBC Distribution Width CV 14.2 % (11.6-14.6); Red Blood Count 3.41 M/mm3 (4.2-5.4); White Blood Count 23.2 K/mm3 (4.4-11.0)
[2018-07-24 01:09] LABS: Differential Indicated SCAN CRITERIA MET; POSITIVE COUNT NO; POSITIVE DIFFERENTIAL YES; POSITIVE MORPHOLOGY NO
[2018-07-24 01:15] LABS: Anion Gap 12 (5-15); BUN 6 mg/dL (7-18); BUN/Creat Ratio 7.2 RATIO (10-20); Calcium,Total 8.1 mg/dL (8.5-10.1); Chloride 104 mmol/L (98-107); Creatinine, Serum 0.84 mg/dL (0.55-1.02); EST Glomerular Filtration Rate 85 mL/min (>60); Est Glom Filt Rate - Afr Amer 102 mL/min (>60); Estimated Creatinine Clearance 84.56 ml/min; Glucose 158 mg/dL (74-106); Potassium 3.5 mmol/L (3.5-5.1); Sodium Level 137 mmol/L (136-145)
[2018-07-24 01:30] LABS: Pathologist Review May foll
--- NOTE | 2018-07-24 01:47 | NURSING ---
0140 erlin zhang, ct called and they state they will call in about an hour wehn they are ready for her. pt updated, states she is comfortable and is going to try to take a nap.
--- NOTE | 2018-07-24 05:49 | NURSING ---
[address] scan per wheelchair. [address] states is comfortable.
--- NOTE | 2018-07-24 05:52 | NURSING ---
7260 Dr. Freire called and read CT report. states pt no longer npo, encourage fluids and inform that it is a benign tumor. pt given information and fluids encouraged and vital signs checked. pt using ice to dago area. states she is comfortable and more relaxed now that she knows the results of test.
--- NOTE | 2018-07-24 07:48 | PN.OBGYN_ITS ---
Patient Problems: Active and Suspected Problems (Last Reviewed 07/18/18 @ 10:14 by Sujey Yi) Active labor at term (Acute) Subjective: doing well no complaints pain controlled no CP SOB N V ambulating well tolerating po lochia moderate, going well - Physical Exam General: Alert, Oriented x3 Abdomen: Soft, Non Tender, - - FF below U. Small firm nodule noted to right of umbilicus. Not as prominent as before per patient. Consistent with fibroid. Vital Signs Temp Pulse Resp BP Pulse Ox 98.6 F 94 16 105/59 L 99 07/24/18 04:55 07/24/18 04:55 07/24/18 04:55 07/24/18 04:55 07/24/18 00:05 Oxygen Delivery Method Room Air Weight: 198 lb Body Mass Index (BMI) 34.0 Intake and Output for Last 24 Hours 07/22/18 07/23/18 07/24/18 23:59 23:59 23:59 Output Total 1650 / 1650 900 / 900 Balance -1650 / -1650 -900 / -900 Laboratory Tests Past 24 Hrs 07/24/18 07/24/18 00:55 00:55 WBC 23.2 H RBC 3.41 L Hgb 10.1 L Hct 29.9 L MCV 87.7 MCH 29.6 MCHC 33.8 RDW 14.2 RDW Differential 44.0 H Plt Count 306 MPV 10.3 Immature Gran % (Auto) 0.500 Neut % (Auto) 84.4 H Lymph % (Auto) 6.4 L [place] % (Auto) 8.6 Eos % (Auto) 0.0 Baso % (Auto) 0.1 Absolute Neuts (auto) 19.6 H Absolute Lymphs (auto) 1.48 Total Counted Not Reportable Diff Path Review May foll Sodium 137 Potassium 3.5 Chloride 104 Carbon Dioxide 21.0 Anion Gap 12 BUN 6 L Creatinine 0.84 Estim Creat Clear Calc 84.56 Est GFR (MDRD) Af Amer 102 Est GFR (MDRD) Non-Af 85 BUN/Creatinine Ratio 7.2 L Glucose 158 H Calcium 8.1 L Medical Necessity - Tobacco Use Smoking Status: Never smoker Assessment/Plan All Active Problems (Last Reviewed 07/18/18 @ 10:14 by Sujey Yi) Active labor at term (Acute) Susceptible to varicella (non-immune), currently (Acute) Abnormal glucose tolerance affecting , antepartum (Acute) (Acute) GBS (group B Streptococcus carrier), +RV culture, currently (Acute) Supervision of normal (Acute) Oligo-ovulation (Resolved) s/p PPD # 1 1. routine post delivery care 2. breast feeding- support given 3. rh positive 4. rubella immune
[2018-07-24] MEDS: Naproxen 250 MG Tablet 500 MG PO ×2 (08:59→20:03)
[2018-07-24] MEDS: Senna/Docusate Sodium 1 Tablet PO (09:00)
[2018-07-24] MEDS: Acetaminophen 500 MG Tablet 1000 MG PO (14:59)
[2018-07-25 02:25] VITALS: BP 103/62; PULSE 65; RESP 18; TEMP 36.3
[2018-07-25] MEDS: Naproxen 250 MG Tablet 500 MG PO ×2 (05:59→15:46)
--- NOTE | 2018-07-25 07:44 | PCM.PN.OB ---
Patient Problems: Active and Suspected Problems (Last Reviewed 07/18/18 @ 10:14 by Sujey Yi) Active labor at term (Acute) Subjective: doing well no complaints pain controlled no CP SOB N V ambulating well tolerating po lochia moderate, going well - Physical Exam General: Alert, Oriented x3 Abdomen: Soft, Non Tender, Non-Distended, - - FF below U Vital Signs Temp Pulse Resp BP Pulse Ox 97.3 F L 65 18 103/62 99 07/25/18 02:25 07/25/18 02:25 07/25/18 02:25 07/25/18 02:25 07/24/18 00:05 Oxygen Delivery Method Room Air Weight: 198 lb Body Mass Index (BMI) 34.0 Intake and Output for Last 24 Hours 07/23/18 07/24/18 07/25/18 23:59 23:59 23:59 Output Total 1650 / 1650 900 / 900 Balance -1650 / -1650 -900 / -900 Medical Necessity - Tobacco Use Smoking Status: Never smoker Assessment/Plan All Active Problems (Last Reviewed 07/18/18 @ 10:14 by Sujey Yi) Active labor at term (Acute) Susceptible to varicella (non-immune), currently (Acute) Abnormal glucose tolerance affecting , antepartum (Acute) (Acute) GBS (group B Streptococcus carrier), +RV culture, currently (Acute) Supervision of normal (Acute) Oligo-ovulation (Resolved) s/p PPD # 2 1. routine post delivery care 2. breast feeding- support given 3. rh positive 4. rubella immune 5. stool softener encouraged 6.home today
--- NOTE | 2018-07-25 07:46 | DCINST_ITS ---
Additional Instructions: If you experience any of the following, contact your healthcare provider. * Bleeding that soaks a pad every hour for 2 hours * Fever 100.4 or higher * Unrelieved incision or abdominal pain * Swelling, redness, discharge or bleeding from your incision or episiotomy site * Your incision begins to separate * Problems urinating (including inability to urinate or burning while urinating). * Visual changes * Severe headache * Flu-like symptoms * Pain or redness in one of both of your breasts * Pain, warmth, tenderness or swelling in your legs, especially the calf area * Frequent nausea and vomiting * Symptoms of depression or anxiety If you experience any of the following, call 911 or go to the nearest Emergency Room. * Chest pain * Problems breathing * Seizure activity * Partial or complete paralysis of a body part, slurred speech, weakness or drooping of the face, or a sudden inability to walk or hold your balance Allergies/Adverse Reactions: Allergies adhesive Allergy (Mild, Verified 07/23/18 02:02) Unknown latex Allergy (Verified 07/23/18 02:02) Unknown Sulfa (Sulfonamide Antibiotics) Allergy (Verified 07/23/18 02:02) Hives Medications to take at Discharge Vits [Prenatabs FA] 1 tab PO DAILY 07/28/16 ciclopirox 1 % shampoo 5 ml TOPICAL 2XW 02/03/17 clobetasol 0.05 % scalp solution 1 applic TOPICAL ONCE 02/03/17 clobetasol 0.05 % shampoo 1 applic TOPICAL ONCE 02/03/17 Ferrous Sulfate [Iron] 325 mg PO DAILY 07/23/18 Primary Care Physician: Hari Stokes MD [Primary Care Provider] - Test Results: Test results from this visit will be discussed in further detail at your follow- up appointment, if applicable.
--- NOTE | 2018-07-25 07:46 | PCM.DCVAG ---
Additional Instructions: If you experience any of the following, contact your healthcare provider. Bleeding that soaks a pad every hour for 2 hours Fever 100.4 or higher Unrelieved incision or abdominal pain Swelling, redness, discharge or bleeding from your incision or episiotomy site Your incision begins to separate Problems urinating (including inability to urinate or burning while urinating). Visual changes Severe headache Flu-like symptoms Pain or redness in one of both of your breasts Pain, warmth, tenderness or swelling in your legs, especially the calf area Frequent nausea and vomiting Symptoms of depression or anxiety If you experience any of the following, call 911 or go to the nearest Emergency Room. Chest pain Problems breathing Seizure activity Partial or complete paralysis of a body part, slurred speech, weakness or drooping of the face, or a sudden inability to walk or hold your balance Allergies/Adverse Reactions: Allergies adhesive Allergy (Mild, Verified 07/23/18 02:02) Unknown latex Allergy (Verified 07/23/18 02:02) Unknown Sulfa (Sulfonamide Antibiotics) Allergy (Verified 07/23/18 02:02) Hives Medications to take at Discharge Vits [Prenatabs FA] 1 tab PO DAILY 07/28/16 ciclopirox 1 % shampoo 5 ml TOPICAL 2XW 02/03/17 clobetasol 0.05 % scalp solution 1 applic TOPICAL ONCE 02/03/17 clobetasol 0.05 % shampoo 1 applic TOPICAL ONCE 02/03/17 Ferrous Sulfate [Iron] 325 mg PO DAILY 07/23/18 Primary Care Physician: Hari Stokes MD [Primary Care Provider] - Test Results: Test results from this visit will be discussed in further detail at your follow-up appointment, if applicable.
[2018-07-25 07:50] VITALS: BP 99/58; PULSE 65; RESP 16; TEMP 36.6; O2SAT 96
[2018-07-25] MEDS: Senna/Docusate Sodium 1 Tablet PO (11:30)
[2018-07-25] MEDS: Acetaminophen 500 MG Tablet 1000 MG PO (11:30)
[2018-07-25 14:00] VITALS: BP 107/65; PULSE 80; RESP 16; TEMP 36.8; O2SAT 100
== END 2018-07-25 16:55 | disposition home or self-care (01) | DRG 806 ==
PROVIDERS: Admitting Provider Obstetrics & Gynecology; Family Provider Family Medicine; PCP Family Medicine; Referring Provider Obstetrics & Gynecology; Visit Provider Obstetrics & Gynecology
DX: O75.89 Other specified complications of labor and delivery (principal); O98.82 Other maternal infectious and parasitic diseases complicating childbirth; Z37.0 Single live birth; O70.1 Second degree perineal laceration during delivery; B95.1 Streptococcus, group B, as the cause of diseases classified elsewhere; Z3A.39 39 weeks gestation of pregnancy; O90.89 Other complications of the puerperium, not elsewhere classified; K42.9 Umbilical hernia without obstruction or gangrene
CPT/HCPCS: 59025; 59050; 74176; 80048; 85025; 86850; 86900; 99218; J7120; A4216; G0378

== ENCOUNTER 2018-07-26 10:20 | Outpatient (CLI) | payer OTHER, SELFPAY | END 2018-07-26 11:30 | disposition home or self-care (01) | LOC: WPOUT 10:24 → WP 10:24 | PROVIDERS: Family Provider Family Medicine; PCP Family Medicine; Referring Provider Obstetrics & Gynecology; Visit Provider Obstetrics & Gynecology | DX: O92.79 Other disorders of lactation (principal) | CPT/HCPCS: 96152 ==

== ENCOUNTER → 2018-07-27 | Outpatient (CLI) | payer OTHER, SELFPAY ==
[2018-07-23 02:06] VITALS: BMI 34.0
--- NOTE | 2018-07-27 11:50 | VDLE_ITS ---
Reason For Study: swelling RIGHT LEFT GSV is normal. GSV is normal. CFV is compressible, spontaneous, phasic, CFV is compressible, spontaneous, phasic, competent and demonstrates normal competent, and demonstrates normal augmentation. augmentation. FV is compressible, spontaneous, phasic, FV is compressible, spontaneous, phasic, competent and demonstrates normal competent and demonstrates normal augmentation. augmentation. POP V is compressible, spontaneous, phasic, POP V is compressible, spontaneous, phasic, competent and demonstrates normal competent and demonstrates normal augmentation. augmentation. T/P Trunk is compressible. T/P Trunk is compressible. PTV is compressible. PTV is compressible. RT PerV is compressible. LT PerV is compressible. Procedure Exam performed in department. The exam was diagnostic. A preliminary report was called and/or faxed to Dr. Freire @ [phone] @ 12:15 pm. Interpretation Summary Deep veins of the lower extremities are bilaterally patent and compressible segmentally. There is no evidence of deep vein thrombosis on either side. Valvular competence appears intact within the proximal deep venous systems bilaterally. The greater saphenous veins appear bilaterally patent and compressible segmentally. Ordering Physician: Alysha Freire Referring Physician: Hari Stokes Performed By: Jessica Whitley, KINGACS, RVT
== END | disposition home or self-care (01) ==
LOC: CVS 11:49
PROVIDERS: Family Provider Family Medicine; PCP Family Medicine; Referring Provider Obstetrics & Gynecology; Visit Provider Obstetrics & Gynecology
DX: M79.89 Other specified soft tissue disorders (principal)
CPT/HCPCS: 93970

== ENCOUNTER → 2018-09-01 08:23 | Outpatient (CLI) | payer OTHER, SELFPAY | PROVIDERS: Family Provider Family Medicine; PCP Family Medicine; Visit Provider Obstetrics & Gynecology | DX: O92.79 Other disorders of lactation (principal) | CPT/HCPCS: 96152 ==

== ENCOUNTER → 2019-06-27 15:43 | Outpatient (CLI) | payer OTHER, SELFPAY ==
[2019-03-20 11:22] VITALS: BMI 34.0
--- NOTE | 2019-06-27 15:45 | RAD_ITS ---
STUDY: X-RAY - RIGHT SHOULDER REASON FOR EXAM: Female, 33 years old. PAIN IN SHOULDER X 1 DAY. NO KNOWN INJURY. TECHNIQUE: 4 view(s) of the shoulder. COMPARISON: None. FINDINGS: Normal glenohumeral articulation. Normal acromioclavicular joint. Normal acromion. Normal humeral head and visualized proximal humerus. The soft tissue structures are unremarkable. Normal visualized pulmonary apex. RAD/Shoulder min 2 Views IMPRESSION: Normal x-ray examination of the shoulder. Electronically Signed: Alexander Quintero MD at 16:05 EDT , Service support ,
== END ==
PROVIDERS: PCP Family Medicine; Referring Provider Family Medicine; Visit Provider Family Medicine
DX: M25.519 Pain in unspecified shoulder (principal)
CPT/HCPCS: 73030

== ENCOUNTER → 2019-09-09 16:42 | Outpatient (CLI) | payer OTHER, SELFPAY ==
[2019-09-09 14:59] VITALS: BMI 34.0
[2019-09-14 17:33] LABS: HPV APTIMA, High Risk Negative (Negative)
== END ==
PROVIDERS: PCP Family Medicine; Visit Provider Obstetrics & Gynecology
DX: Z12.4 Encounter for screening for malignant neoplasm of cervix (principal)
CPT/HCPCS: 87624; 88175; G0145

== ENCOUNTER → 2019-09-19 09:08 | Outpatient (CLI) | payer OTHER, SELFPAY ==
[2019-09-09 14:59] VITALS: BMI 34.0
[2019-09-19 09:49] LABS: Cholesterol 166 mg/dL (200); Glucose 92 mg/dL (74-106); High Density Lipoprotein 57 mg/dL; Triglycerides 54 mg/dL; Very Low Density Lipoprotein 11 mg/dL (5-40)
[2019-09-19 09:52] LABS: Vitamin D,25 Hydroxy 37.3 ng/mL
== END ==
PROVIDERS: PCP Family Medicine; Referring Provider Obstetrics & Gynecology; Visit Provider Obstetrics & Gynecology
DX: Z13.1 Encounter for screening for diabetes mellitus (principal); Z13.220 Encounter for screening for lipoid disorders; Z13.21 Encounter for screening for nutritional disorder
CPT/HCPCS: 36415; 80061; 82306; 82947

== ENCOUNTER → 2019-11-28 12:54 | Outpatient (CLI) | payer OTHER, SELFPAY ==
[2019-09-09 14:59] VITALS: BMI 34.0
--- NOTE | 2019-11-28 13:02 | VDLE_ITS ---
Reason For Study: Pain RIGHT GSV is normal. CFV is compressible, spontaneous, phasic, competent and demonstrates normal augmentation. FV is compressible, spontaneous, phasic, competent and demonstrates normal augmentation. POP V is compressible, spontaneous, phasic, competent and demonstrates normal augmentation. T/P Trunk is compressible. PTV is compressible. RT PerV is compressible. Procedure This is a venous duplex using B-mode, color flow and spectral Doppler. Exam performed in department. A preliminary report was called and/or faxed to [facility]. Interpretation Summary Deep veins of the right lower extremity are patent and compressible segmentally. There is no evidence of right lower extremity deep vein thrombosis. Valvular competence appears intact within the proximal deep venous system on the right . The right great saphenous vein appears patent and compressible segmentally. Ordering Physician: Hari Stokes Referring Physician: Hari Stokes Performed By: Rozina Ritter RVT and Student
== END ==
PROVIDERS: PCP Family Medicine; Referring Provider Family Medicine; Visit Provider Family Medicine
DX: M79.604 Pain in right leg (principal)
CPT/HCPCS: 93971

== ENCOUNTER → 2019-12-11 10:03 | Outpatient (CLI) | payer OTHER, SELFPAY ==
[2019-12-11 09:08] VITALS: BMI 34.3
[2019-12-11 10:22] LABS: Absolute Lymphocyte Count 1.69 X10^3/uL (0.83-4.51); Absolute Neutrophil Count 7.4 X10^3/uL (2.0-7.7); Basophil# 0.05 X10^3/uL; Basophil% 0.5 % (0-1); Eosinophil# 0.15 X10^3/uL; Eosinophils% 1.5 % (0-5); Hematocrit 38.6 % (37-47); Hemoglobin 12.5 g/dL (12.0-15.0); Lymphocyte # 1.69 X10^3/ul (4.0); Lymphocyte % 16.7 % (19-41); Mean Corp Hgb Conc 32.4 g/dL (32-36); Mean Corpuscular Hgb 28.8 pg (27.0-32.0); Mean Corpuscular Volume 88.9 fL (81-99); Mean Platelet Vol. 9.3 fl (6.2-12.0); Monocyte# 0.76 X10^3/uL; Monocyte% 7.5 % (0-10); NRBC Flagged by Analyzer 0 % (0-5); Neutrophil # 7.41 X10^3/uL (2.7-7.7); Neutrophil % 73.2 % (47-70); Platelet Count 417 K/mm3 (150-450); RBC Distribution Width CV 13.9 % (11.6-14.6); RBC Distribution Width SD 45.2 fl (35.1-43.9); Red Blood Count 4.34 M/mm3 (4.2-5.4); White Blood Count 10.1 K/mm3 (4.4-11.0)
[2019-12-11 10:43] LABS: Glucose Challenge Gest 1H 50g 123 mg/dL (70-140)
[2019-12-11 11:25] LABS: HIV - WCH Non-Reactive (Nonreactive); Hepatitis B Surface Antigen Non-Reactive (Nonreactive); Hepatitis C Antibody Non-Reactive (Nonreactive)
[2019-12-11 17:20] LABS: Amphetamine Urine VISTA NEGATIVE (<1000 ng/mL); Barbiturate Urine VISTA NEGATIVE (< 200 ng/mL); Benzodiazepine Urine VISTA NEGATIVE (< 200 ng/mL); Cocaine Urine VISTA NEGATIVE (< 300 ng/mL); Ecstacy Urine VISTA NEGATIVE (< 500 ng/mL); Methadone Urine VISTA NEGATIVE (< 300 ng/mL); PCP Urine VISTA NEGATIVE (< 25 ng/mL); THC Urine VISTA NEGATIVE (< 50 ng/mL); Vista UDS pH Range 5
[2019-12-12 02:11] LABS: Rapid Plasmin Reagin (RPR) NONREACTIVE (NONREACTIVE)
[2019-12-14 03:07] LABS: Chlamydia By Nucleic Acid AMP Negative (Negative)
[2019-12-14 10:56] LABS: Gonococcus By Nucleic Acid AMP Negative (Negative)
== END ==
PROVIDERS: PCP Family Medicine; Referring Provider Obstetrics & Gynecology; Visit Provider Obstetrics & Gynecology
DX: Z34.80 Encounter for supervision of other normal pregnancy, unspecified trimester (principal)
CPT/HCPCS: 36415; 80307; 82950; 85025; 86592; 86703; 86803; 86850; 86900; 86901; 87086; 87340; 87491; 87591

== ENCOUNTER → 2019-12-23 15:45 | Outpatient (CLI) | payer OTHER, SELFPAY ==
[2019-12-11 09:08] VITALS: BMI 34.3
== END ==
PROVIDERS: PCP Family Medicine; Referring Provider Obstetrics & Gynecology; Visit Provider Obstetrics & Gynecology
DX: Z34.81 Encounter for supervision of other normal pregnancy, first trimester (principal)
CPT/HCPCS: 36415

== ENCOUNTER → 2020-04-21 08:58 | Outpatient (CLI) | payer OTHER, SELFPAY ==
[2020-04-01 09:58] VITALS: BMI 37.8
[2020-04-21 09:27] LABS: Absolute Lymphocyte Count 1.72 X10^3/uL (0.83-4.51); Absolute Neutrophil Count 10.8 X10^3/uL (2.0-7.7); Basophil# 0.07 X10^3/uL; Basophil% 0.5 % (0-1); Eosinophils% 0.7 % (0-5); Hematocrit 36.7 % (37-47); Hemoglobin 11.9 g/dL (12.0-15.0); Lymphocyte # 1.72 X10^3/ul (4.0); Lymphocyte % 12.6 % (19-41); Mean Corp Hgb Conc 32.4 g/dL (32-36); Mean Corpuscular Volume 89.5 fL (81-99); Mean Platelet Vol. 9.9 fl (6.2-12.0); Monocyte# 0.85 X10^3/uL; Monocyte% 6.2 % (0-10); NRBC Flagged by Analyzer 0 % (0-5); Neutrophil # 10.77 X10^3/uL (2.7-7.7); Neutrophil % 78.6 % (47-70); Platelet Count 341 K/mm3 (150-450); RBC Distribution Width CV 13.5 % (11.6-14.6); RBC Distribution Width SD 44.4 fl (35.1-43.9); White Blood Count 13.7 K/mm3 (4.4-11.0)
[2020-04-21 09:36] LABS: Glucose Challenge Gest 1H 50g 116 mg/dL (70-140)
[2020-04-21 09:50] LABS: Rubella IgG Reactive (Nonreactive)
== END ==
PROVIDERS: Obstetrics & Gynecology; PCP Family Medicine; Referring Provider Obstetrics & Gynecology; Visit Provider Obstetrics & Gynecology
DX: Z34.80 Encounter for supervision of other normal pregnancy, unspecified trimester (principal)
CPT/HCPCS: 36415; 82950; 85025; 86762

== ENCOUNTER → 2020-06-05 14:49 | Outpatient (CLI) | payer OTHER, SELFPAY ==
[2020-06-02 10:21] VITALS: BMI 38.2
[2020-06-05 14:39] VITALS: BMI 38.2
--- NOTE | 2020-06-05 14:52 | US_ITS ---
STUDY: SECOND AND THIRD TRIMESTER OBSTETRICAL ULTRASOUND - LIMITED REASON FOR EXAM: Female, 34 years old. Size date discrepancy. LMP: 10/09/2019. PRIOR ULTRASOUND: None. TECHNIQUE: Transabdominal TECHNICAL QUALITY: Adequate. FINDINGS: There is a single intrauterine fetus. The fetus is in a cephalic presentation. There is demonstrated cardiac activity with a heart rate of 136 bpm. There is a normal amniotic fluid volume. The largest amniotic fluid pocket measures 6.15 cm. The amniotic fluid index (KIM) is 19.69 cm. The placenta is posterior in location and is not low lying. There are Grade 1 placental changes. The cervix measures 3.29 cm cm in length. BIOMETRY: BPD: 8.79 cm: 35 weeks, 3 days HC: 31.83 cm: 35 weeks, 5 days AC: 31.37 cm: 35 weeks, 2 days FL: 6.74 cm: 34 weeks, 4 days Age by LMP: 34 weeks, 2 days. EVERARDO by LMP: 07/15/2020. age by current US: 34 weeks, 5 days. EVERARDO by current US: 07/12/2020. Estimated weight: 2640 grams, +/- 396 grams, 73 percentile. Gender: Indeterminant US/OB Limited With Biometrics IMPRESSION: 1. Live single intrauterine at 34 weeks, 5 days. EVERARDO is 07/12/2020. This roughly correlates with expected gestational age by last menstrual period 2. EFW of 2640 g. 3. KIM of 19.69 cm. 4. Posterior grade 1 placenta. 5. Vertex presentation. Electronically Signed: Rohan Schwarz DO at 23:25 EDT Tel [phone], Service support ,
== END ==
PROVIDERS: PCP Family Medicine; Referring Provider Obstetrics & Gynecology; Visit Provider Obstetrics & Gynecology
DX: O26.849 Uterine size-date discrepancy, unspecified trimester (principal); R30.9 Painful micturition, unspecified; Z3A.00 Weeks of gestation of pregnancy not specified
CPT/HCPCS: 76816; 87086

== ENCOUNTER → 2020-06-17 12:06 | Outpatient (CLI) | payer OTHER, SELFPAY ==
[2020-06-17 09:09] VITALS: BMI 38.2
== END ==
PROVIDERS: PCP Family Medicine; Referring Provider Obstetrics & Gynecology; Visit Provider Obstetrics & Gynecology
DX: Z34.80 Encounter for supervision of other normal pregnancy, unspecified trimester (principal)
CPT/HCPCS: 87081

== ENCOUNTER 2020-07-11 06:20 | Inpatient (IN) | payer OTHER, SELFPAY ==
[2020-06-02 10:21] VITALS: BMI 38.2
[2020-07-09 10:56] VITALS: BMI 39.5
[2020-07-11] VITALS (70 sets, daily range): BP systolic 83–137; BP diastolic 49–81; PULSE 75–136; RESP 16; TEMP 36.3–37.3; O2SAT 90–100; BMI 40.5
[2020-07-11] MEDS: Lactated Ringers 1,000 ML 200 ML IV ×2 (06:25→11:06)
[2020-07-11 06:39] LABS: Absolute Lymphocyte Count 1.82 X10^3/uL (0.83-4.51); Absolute Neutrophil Count 9.6 X10^3/uL (2.0-7.7); Basophil# 0.05 X10^3/uL; Basophil% 0.4 % (0-1); Eosinophil# 0.49 X10^3/uL; Eosinophils% 3.7 % (0-5); Hematocrit 36.1 % (37-47); Hemoglobin 11.7 g/dL (12.0-15.0); Lymphocyte # 1.82 X10^3/ul (0.83-4.51); Lymphocyte % 13.7 % (19-41); Mean Corp Hgb Conc 32.4 g/dL (32-36); Mean Corpuscular Hgb 28.4 pg (27.0-32.0); Mean Corpuscular Volume 87.6 fL (81-99); Mean Platelet Vol. 10.6 fl (6.2-12.0); Monocyte# 1.21 X10^3/uL; Monocyte% 9.1 % (0-10); NRBC Flagged by Analyzer 0 % (0-5); Neutrophil # 9.55 X10^3/uL (2.7-7.7); Platelet Count 326 K/mm3 (150-450); RBC Distribution Width CV 14.4 % (11.6-14.6); RBC Distribution Width SD 45.5 fl (35.1-43.9); Red Blood Count 4.12 M/mm3 (4.2-5.4); White Blood Count 13.3 K/mm3 (4.4-11.0)
--- NOTE | 2020-07-11 06:45 | HP.PCM.OB_ITS ---
HPI - General General Date of Admission: 07/11/20 HPI Narrative GUS KELLEY, is a 34 F at 39 weeks who presents in active labor Maternal Data Information EVERARDO Calculator Estimated Delivery Date Method Current WG Current Estimate 07/15/20 LMP (Certain) 39w 3d PFSH PFSH Medical History (Updated 07/11/20 @ 06:[address] Luiza Sharma MD) Infertility Polycystic ovaries depression Seizures Home Medications vit,[id number] 1 tab PO DAILY 07/28/16 [History Last Taken 07/22/18 08:00] ferrous sulfate 325 mg (65 mg iron) tablet 325 mg PO DAILY 09/09/19 [History Last Taken Unknown] promethazine 12.5 mg tablet 12.5 mg PO Q6H PRN #30 tab 12/11/19 [Rx Last Taken Unknown] citalopram 20 mg tablet 20 mg PO DAILY #30 tab 06/30/20 [Rx Last Taken 07/10/20] Allergy/AdvReac Type Severity Reaction Status Date / Time adhesive Allergy Mild Unknown Verified 07/11/20 06:14 latex Allergy Unknown Verified 07/11/20 06:14 Sulfa (Sulfonamide Allergy Hives Verified 07/11/20 06:14 Antibiotics) Family History Grandmother Diabetes Hypertension Aunt Breast cancer Lupus Grandfather Heart disease Myocardial infarction Unknown Uterine cancer Surgical History History of tonsillectomy History of wisdom tooth extraction, class II edentulism Social History adopted: No household members: family number of children: 1 Smoking Status: Never smoker second hand exposure: No alcohol intake: never substance use type: does not use caffeine: Yes what type of physical activity do you participate in: none seatbelt use: always do you feel safe at home: Yes additional social history: Shalini Santoyo at the [facility] History 4 Elective abortions Hx Para 1 Spontaneous abortions Hx # Term Pregnancies 1 Ectopic pregnancies Hx # Pregnancies Multiple births # of living children 1 Past Pregnancies Del. Date Name GA/Weeks Outcome Route Bth Weight Infant Gen Labor Lgth Anesthesia Del Locatn Provider FOB 07/23/18 Oz 39 live - full term 7lbs 12oz Male 16 hours other [facility] Tani Delivery Date: 07/23/18 no complications Sandi Dixon Visit Details Expected Delivery Route/Plan Labor Preferences- CB/BF classes: no labor support person: Michael labor intervention preferences: pain management options preferred: natural cut cord/dad catch: cord : yes PP control planned: reviewed options discussed possible routes of delivery and associated risks: [] special requests: [] Plans flu vaccine:decline tdap vaccine: given rhogam: na LARC form signed: yes Problem list reviewed and updated with the most current plan of care details and appropriate orders placed. Relevant counseling for the gestational age provided. Continue routine care and follow up unless otherwise noted in visit notes/problem list details OB Flowsheet Initial Weight: Not Recorded Date -?-?-?-?-?-?-?-?-?-?-?-?- EGA Weight BP Urine Prot -?-?-?-?-?-?-?-?-?-?-?-?- Glucose FHR FuHt Pres Dilation -?-?-?-?-?-?-?-?-?-?-?-?- Effaced St Visit Note 12/11/19 -?-?-?-?-?-?-?-?-?-?-?-?- 9w 0d 200 lb 2 oz 104/68 -?-?-?-?-?-?-?-?-?-?-?-?- 160 -?-?-?-?-?-?-?-?-?-?-?-?- GP - CRL 17mm co nsistent with LMP. 01/07/20 -?-?-?-?-?-?-?-?-?-?-?-?- 12w 6d 207 lb 122/70 Negative -?-?-?-?-?-?-?-?-?-?-?-?- Negative 160 -?-?-?-?-?-?-?-?-?-?-?-?- MH-nausea resolv ed. No VB, LOF. NIPT LR. Brief US to confirm FHT. MFM anatomy US ordered. 02/04/20 -?-?-?-?-?-?-?-?-?-?-?-?- 16w 6d 209 lb 110/78 Negative -?-?-?-?-?-?-?-?-?-?-?-?- Negative 150 -?-?-?-?-?-?-?-?-?-?-?-?- GP - no cramping or bleeding. Maybe feeling flutters of movement. Anatomy scan scheduled. 03/03/20 -?-?-?-?-?-?-?-?-?-?-?-?- 20w 6d 215 lb 130/85 Negative -?-?-?-?-?-?-?-?-?-?-?-?- Negative 150 -?-?-?-?-?-?-?-?-?-?-?-?- Sm- no vb crampi ng doing well 04/01/20 -?-?-?-?-?-?-?-?-?-?-?-?- 25w 0d 220 lb 8 oz 110/74 Nega tive -?-?-?-?-?-?-?-?-?-?-?-?- Negative 145 25 -?-?-?-?-?-?-?-?-?-?-?-?- GP - no cramping , LOF, VB, DFM. 3rd trimester labs next visit. 04/21/20 -?-?-?-?-?-?-?-?-?-?-?-?- 27w 6d 219 lb 4 oz 118/74 Trac e -?-?-?-?-?-?-?-?-?--?-?-?- Negative 146 28 -?-?-?-?-?-?-?-?-?-?-?-?- MH-No VB, LOF. G ood FM. 28 wk labs, tdap, LARC. 05/04/20 -?-?-?-?-?-?-?-?-?-?-?-?- 29w 5d 222 lb 8 oz 118/66 Trac e -?-?-?-?-?-?-?-?-?-?-?-?- Negative 151 30 0 -?-?-?-?-?-?-?-?-?-?-?-?- -work in for b loody discharge on toilet tissue. Good FM. Upon exam note inner left labia sebaceous cyst with bloody mucoid discharge. No blood in vagina, Cx closed. Reassured and review infection S&S to report. 06/02/20 -?-?--?-?-?-?-?-?-?-?-?-?- 33w 6d Negative -?-?-?-?-?-?-?-?-?-?-?-?- 1000 g/dL 150 36 -?-?-?-?-?-?-?-?-?-?-?-?- SM- no vb lof go od fm no regular ctx, ordered growth us for enlarged fundal height, await growth may need repeat GCT testing 06/05/20 -?-?-?-?-?-?-?-?-?-?-?-?- 34w 2d 229 lb 2 oz 120/64 Nega tive -?-?-?-?-?-?-?-?-?-?-?-?- Negative -?-?-?-?-?-?-?-?-?-?-?-?- 06/17/20 -?-?-?-?-?-?-?-?-?-?-?-?- 36w 0d 232 lb 8 oz 132/88 Nega tive -?-?-?-?-?-?-?-?-?-?-?-?- Negative 145 36 -?-?-?-?-?-?-?-?-?-?-?-?- GP - no LOF, VB, dFM, ctx. Discussed growth US results. GBS today. 06/22/20 -?-?-?-?-?-?-?-?-?-?-?-?- 36w 5d 230 lb 8 oz 114/74 Nega tive -?-?-?-?-?-?-?-?-?-?-?-?- Negative 135 36 Cephalic 1 -?-?-?-?-?-?-?-?-?-?-?-?- 50 -3 GP - no LO F, VB, DFM, ctx. Denies complaints. 06/30/20 -?-?-?-?-?-?-?-?-?-?-?-?- 37w 6d 236 lb 102/70 Negative -?-?-?-?-?-?-?-?-?-?-?-?- Negative 140 38 Cephalic 1 -?-?-?-?-?-?-?-?-?-?-?-?- SM- no vb lof go od fm no regular ctx 07/09/20 -?-?-?-?-?-?-?-?-?-?-?-?- 39w 1d 237 lb 8 oz 130/70 Nega tive -?-?-?-?-?-?-?-?-?-?-?-?- Negative 145 39 Cephalic 1 -?-?-?-?-?-?-?-?-?-?-?-?- 60 -3 GP - no LO F, VB, dFM, ctx. Denies complaints. 07/11/20 -?-?-?-?-?-?-?-?-?-?-?-?- 39w 3d 236 lb 111/69 -?-?-?-?-?-?-?-?-?-?-?-?- -?-?-?-?-?-?-?-?-?-?-?-?- NST FHR Rate Baby A Baseline: 140 Variability:: Moderate Accelerations:: 15 x 15 Decelerations:: None NST Reactive:: Yes FHR Category:: Category I Uterine Activity:: difficulty tracing ROS Eyes Eyes: Reports systems reviewed and no addt'l complaints, except as documented ENT HEENT: Reports systems reviewed and no addt'l complaints, except as documented Cardiovascular Cardiovascular: Reports systems reviewed and no addt'l complaints, except as documented Respiratory/Chest Respiratory/Chest: Reports systems reviewed and no addt'l complaints, except as documented Gastrointestinal Gastrointestinal: Reports systems reviewed and no addt'l complaints, except as documented Genitourinary Genitourinary: Reports systems reviewed and no addt'l complaints, except as documented Musculoskeletal Musculoskeletal: Reports systems reviewed and no addt'l complaints, except as documented Integumentary Integumentary: Reports systems reviewed and no addt'l complaints, except as documented Neurologic Neurologic: Reports systems reviewed and no addt'l complaints, except as documented Psychiatric Psychiatric: Reports systems reviewed and no addt'l complaints, except as documented Endocrine Endocrinology: Reports systems reviewed and no addt'l complaints, except as documented Hematologic/Lymphatic Hematologic/Lymphatic: Reports systems reviewed and no addt'l complaints, except as documented Allergic/Immunologic Allergic/Immunologic: Reports systems reviewed and no addt'l complaints, except as documented Vital Signs Vital Signs Vital Signs: 07/11/20 06:04 07/11/20 06:08 07/11/20 06:09 Temperature 98.7 F Temperature Source Temporal Pulse Rate 90 94 Blood Pressure 111/69 BP Systolic 111 BP Diastolic 69 Pulse Ox 98 98 Weight Weight: 236 lb Body Mass Index (BMI) 40.5 Physical Exam Const alert, oriented x3, no apparent distress, average body habitus, healthy appearing and well nourished HEENT normocephalic and moist oral mucous membranes Head and Scalp: atraumatic Eyes PERRL and EOMs intact bilaterally Neck full ROM Resp normal respiratory effort, no retractions and no use of accessory muscles Cardio regular rate and regular rhythm GI soft to palpation, non-tender and non-distended Extremity normal to inspection and full ROM Skin no rashes or lesions noted Neuro no focal motor deficits and no sensory deficits noted Psych mental status grossly normal, affect normal, speech normal and activity/motor behavior normal Labs Labs Labs: Blood Type O POSITIVE Antibody Screen NEGATIVE Hct 36.1 % (37-47) L Hgb 11.7 g/dL (12.0-15.0) L Obstetrics US VZV IgG Antibody < 135 index (Immune >165) L Rubella IgG Antibody Reactive (Nonreactive) Hep Bs Antigen Non-Reactive (Nonreactive) Neisseria gonorrhoeae DNA (BREONNA) Negative (Negative) HIV 1&2 Antibody Non-Reactive (Nonreactive) Glucose 1 Hr 50 gm 116 mg/dL (70-140) Rhogam given: No Miscellaneous Test Assessment & Plan (1) Active labor at term: PLAN: Patient presents IAL, plan expectant management for , pitocin/AROM PRN if needed. Pain management: desires natural. GBS negative. Management of any complications: none I have reviewed the [facility] and made any clinically relevant updates. (2) Supervision of other normal : COMMENT: GBS neg, PRR EVERARDO 07/15/20 girl [place] PC:[place] Spouse: Michael (3) : QUALIFIERS: Weeks of gestation: 39 weeks Qualified Code(s): Z3A.39 - 39 weeks gestation of COMMENT: declines carrier- done at [facility] in previous , NIPT low risk, anatomy nl. GBS negative (4) Anxiety and depression: COMMENT: previously on medication- is doing well (5) Susceptible to varicella (non-immune), currently : COMMENT: needs vaccine (6) History of tetanus, diphtheria, and acellular pertussis booster vaccination (Tdap): COMMENT: 04/21/20
--- NOTE | 2020-07-11 06:47 | EX.PCM.OBRPT ---
Assessment & Plan (1) Vaginal delivery: (2) Active labor at term: (3) Supervision of other normal : COMMENT: GBS neg, PRR EVERARDO 07/15/20 girl [place] PC:Oz Spouse: Michael (4) : QUALIFIERS: Weeks of gestation: 39 weeks Qualified Code(s): Z3A.39 - 39 weeks gestation of COMMENT: declines carrier- done at [facility] in previous , NIPT low risk, anatomy nl. GBS negative (5) Anxiety and depression: COMMENT: previously on medication- is doing well (6) Susceptible to varicella (non-immune), currently : COMMENT: needs vaccine (7) History of tetanus, diphtheria, and acellular pertussis booster vaccination (Tdap): COMMENT: 04/21/20 (8) 33 weeks gestation of : COMMENT: COVID test ordered 05/27/20. (scheduled for 07/13/20 at 1340) Maternal Data Information EVERARDO Calculator Estimated Delivery Date Method Current WG Current Estimate 07/15/20 LMP (Certain) 39w 3d Vaginal Delivery Maternal Presentation Maternal Presentation: Active Labor Maternal Presentation: 34-year-old G2, P1 at 39 weeks gestation admitted in active labor. Patient was augmented with AROM and Pitocin. Operative Information Date of Procedure: 07/11/20 Pre-Operative Diagnosis: Term , active labor Post-Operative Diagnosis: Same Surgery / Procedure Performed: Spontaneous Vaginal Delivery Type of Anesthesia: Epidural Estimated Blood Loss: 350 Findings Description of Procedure: Patient began pushing and delivered the head in the MEGAN presentation. The head was delivered atraumatically and a loose nuchal cord was noted and delivered through. The anterior and posterior shoulders delivered without complication followed by the rest of the and the was placed on the maternal abdomen. Delayed cord clamping was employed for approximately 60 seconds. Cord was clamped and cut and gentle traction was applied to the cord and the placenta delivered spontaneously immediately following it was noted to be intact with three-vessel cord. The perineum and vagina were inspected and a midline second-degree and a left labial laceration were noted and repaired in the standard fashion using 3-0 Vicryl repeat suture. EBL was 350 cc. Patient and infant tolerated delivery well. Presentation: Vertex and MEGAN Amniotic Membrane Rupture Type: Artificial Time of Membrane Rupture: 0630 Amniotic Fluid Description: Moderate meconium Placental Delivery Description: Spontaneous Placenta Disposition: [facility] Cord Vessel Description: 3 Vessels Cord Entanglement: Around neck x 1, loose Nuchal Cord Compression: Without compression Infant A Gender: Female Delayed Cord Clamping: Yes Post Vaginal Delivery Medications Given After Delivery: IV Pitocin Episiotomy Description: None Laceration: Midline, Perineal Extension/lac (With left labial) and 2nd degree Complication Complications: None Procedures Urinary/Genital [id number]: [id number] Vaginal Delivery [facility]
--- NOTE | 2020-07-11 06:47 | PCM.DC ---
Discharge Instructions Diet Discharge Diet: No restrictions Activity Discharge Activity: Return to Normal Activity, May Not Drive (while taking narcotic pain medications.) and May Shower May resume sexual activity in: 4-6 weeks Dressing / Incision Call your doctor if your incision/area has: Continuous Slow Oozing, Sudden Increased Bleeding, Increased Pain/ Swelling, Increased Redness and Foul Smelling Discharge Follow Up Care When: Call to make an appointment with your doctor in 6 weeks. If you had elevated Blood Pressure or 4th degree laceration you will need to be seen in 2 weeks. Test Results: Test results from this visit will be discussed in further detail at your follow-up appointment, if applicable. Discharge Plan Admission Admit Date/Time: 07/11/20 06:20 Primary Reason for Your Visit: Active labor Attending Provider: Luiza Sharma Primary Care Provider: Hari Stokes Instructions Patient Instructions: After a Vaginal Discharge Orders/Prescriptions Prescriptions: New naproxen 250 MG tablet 250 - 500 mg PO Q8H PRN PRN (Reason: MILD PAIN) Qty: 30 RF: 1 Continued ferrous sulfate 325 mg (65 mg iron) tablet 325 mg PO DAILY RF: 0 promethazine 12.5 mg tablet 12.5 mg PO Q6H PRN (Reason: nausea and vomiting) Qty: 30 RF: 2 citalopram 20 mg tablet 20 mg PO DAILY Qty: 30 RF: 12 vit,[id number] 1 TABLET tablet 1 tab PO DAILY RF: 0 Referrals / Follow Up: Hari Stokes MD [Primary Care Provider] -
[2020-07-11] MEDS: Lactated Ringers 500 ML 999 ML IV (13:33)
[2020-07-11] MEDS: fentaNYL-bupivacaine (epidural) 100 ML BAG EPIDURAL (14:01)
[2020-07-11] MEDS: Oxytocin 30 units/NS 500 ml 30 UNITS/500 ML IV.SOLN IV (14:31)
--- NOTE | 2020-07-11 15:15 | PCM.PN.BLA ---
Progress Note Patient now comfortable with epidural. Plan to leave complete dilation but 0 station and direct OP position. head manually rotated to OA position. Attempted practice push however minimal descent noted. Will allow to labor down for approximately 30 minutes and then began pushing.
[2020-07-11] MEDS: Oxytocin 30 units/NS 500 ml 30 UNITS/500 ML IV.SOLN 334 UNITS IV (16:45)
[2020-07-11] MEDS: Lactated Ringers 1,000 ML 999 ML IV (17:50)
[2020-07-11] MEDS: Naproxen 500 MG Tablet PO (21:11)
[2020-07-12 01:10] VITALS: BP 109/64; PULSE 84; RESP 18; TEMP 36.2
[2020-07-12] MEDS: Acetaminophen 500 MG Tablet 1000 MG PO ×2 (03:09→12:52)
[2020-07-12 03:11] VITALS: BP 113/64; PULSE 87; RESP 16; TEMP 36.5
[2020-07-12 08:30] VITALS: BP 108/58; PULSE 84; RESP 16; TEMP 36.8
[2020-07-12] MEDS: Senna/Docusate Sodium 1 Tablet PO (08:32)
[2020-07-12] MEDS: Naproxen 500 MG Tablet PO ×2 (08:33→20:15)
[2020-07-12] MEDS: Citalopram 20 MG Tablet PO (08:33)
--- NOTE | 2020-07-12 11:07 | PCM.PN.OB ---
Subjective Subjective Patient doing well without complaints. Tolerating PO. Ambulating and voiding without difficulty. Breast feeding well. Denies chest pain, shortness of breath, calf pain/swelling, fevers, chills, lightheadedness. Objective Data Objective Data Vital Signs: Vital Signs Temp Pulse Resp BP Pulse Ox 98.2 F 84 16 108/58 L 99 07/12/20 08:30 07/12/20 08:30 07/12/20 08:30 07/12/20 08:30 07/11/20 19:26 Oxygen Delivery Method Room Air Weight: 236 lb Body Mass Index (BMI) 40.5 Intake & Output: Intake and Output for Last 24 Hours 07/10/20 07/11/20 07/12/20 23:59 23:59 23:59 Intake Total 5171.02 / 5171.02 Output Total 1600 / 1600 900 / 900 Balance 3571.02 / 3571.02 -900 / -900 Lab / Micro Data Result Diagrams: 07/11/20 06:25 Micro: Microbiology 07/11/20 06:27 Interface Orders SARS-CoV-2 Antigen (Rapid) - Final ROS Constitutional Constitutional: Denies fever(s) Cardiovascular Cardiovascular: Denies chest pain, dyspnea or lightheadedness Gastrointestinal Gastrointestinal: Reports abdominal pain; Denies constipation or diarrhea Neurologic Neurologic: Denies dizziness or headache(s) Physical Exam Const alert, oriented x3, no apparent distress, average body habitus, healthy appearing and well nourished HEENT normocephalic Head and Scalp: atraumatic Eyes PERRL and EOMs intact bilaterally Neck full ROM Lymph Lymphatic: no lymphadenopathy noted Resp normal respiratory effort, no retractions and no use of accessory muscles Cardio regular rate GI soft to palpation, non-tender and non-distended Palpation: other Other Details: fundus firm Extremity normal to inspection and no clubbing, cyanosis or edema Skin no rashes or lesions noted Neuro no focal motor deficits and no sensory deficits noted Psych mental status grossly normal, affect normal and speech normal Assessment & Plan (1) Vaginal delivery: PLAN: s/p PPD # 1 1. routine post delivery care 2. breast feeding- support given 3. rh positive 4. rubella immune
[2020-07-12 12:00] VITALS: BP 103/47; PULSE 83; RESP 16; TEMP 36.6
[2020-07-12] MEDS: Hydrocortisone 2.5% Crm 1 APPLIC TOPICAL (20:16)
[2020-07-12 20:30] VITALS: BP 104/57; PULSE 79; RESP 16; TEMP 36.6
[2020-07-12] MEDS: Loratadine 10 MG Tablet PO (20:31)
[2020-07-13 01:10] VITALS: BP 109/64; PULSE 84; RESP 18; TEMP 36.2
[2020-07-13] MEDS: Acetaminophen 500 MG Tablet 1000 MG PO ×2 (01:21→13:30)
--- NOTE | 2020-07-13 07:37 | PCM.PN.OB ---
Subjective Subjective Patient doing well without complaints. Tolerating PO. Ambulating and voiding without difficulty. well. Denies chest pain, shortness of breath, calf pain/swelling, fevers, chills, lightheadedness. Objective Data Objective Data Vital Signs: Vital Signs Temp Pulse Resp BP Pulse Ox 97.2 F L 84 18 109/64 99 07/13/20 01:10 07/13/20 01:10 07/13/20 01:10 07/13/20 01:10 07/11/20 19:26 Oxygen Delivery Method Room Air Weight: 236 lb Body Mass Index (BMI) 40.5 Intake & Output: Intake and Output for Last 24 Hours 07/11/20 07/12/20 07/13/20 23:59 23:59 23:59 Intake Total 5171.02 / 5171.02 Output Total 1600 / 1600 900 / 900 Balance 3571.02 / 3571.02 -900 / -900 Lab / Micro Data Result Diagrams: 07/11/20 06:25 Micro: Microbiology 07/11/20 06:27 Interface Orders SARS-CoV-2 Antigen (Rapid) - Final Physical Exam Const alert and oriented x3 HEENT normocephalic Eyes PERRL Neck full ROM Resp normal respiratory effort GI soft to palpation GI Narrative: FF below U Assessment & Plan (1) Vaginal delivery: PLAN: s/p PPD # 2 1. routine post delivery care 2. breast feeding- support given 3. rh positive 4. rubella immune 5. home today
[2020-07-13] MEDS: Naproxen 500 MG Tablet PO (08:26)
[2020-07-13 08:55] VITALS: BP 111/60; PULSE 80; RESP 16; TEMP 36.2
[2020-07-13] MEDS: Citalopram 20 MG Tablet PO (10:25)
[2020-07-13] MEDS: Loratadine 10 MG Tablet PO (10:25)
[2020-07-13 14:30] VITALS: BP 112/64; PULSE 101; RESP 16; TEMP 36.9
== END 2020-07-13 14:45 | disposition home or self-care (01) | DRG 807 ==
LOC: WPOUT 06:22 → WP 06:22
PROVIDERS: Admitting Provider Obstetrics & Gynecology; PCP Family Medicine; Visit Provider Obstetrics & Gynecology
DX: O69.81X0 Labor and delivery complicated by cord around neck, without compression, not applicable or unspecified (principal); O99.284 Endocrine, nutritional and metabolic diseases complicating childbirth; E28.2 Polycystic ovarian syndrome; O77.0 Labor and delivery complicated by meconium in amniotic fluid; O70.1 Second degree perineal laceration during delivery; Z37.0 Single live birth; Z3A.39 39 weeks gestation of pregnancy
CPT/HCPCS: 59025; 59050; 85025; 86850; 86900; 86901; 87426; 99218; J7120; G0378

== ENCOUNTER 2020-07-17 09:34 | Inpatient (IN) | payer OTHER, SELFPAY ==
[2020-07-11 06:14] VITALS: BMI 40.5
[2020-07-17] VITALS (10 sets, daily range): BP systolic 109–149; BP diastolic 78–84; PULSE 61–73; RESP 12–23; TEMP 36.4–37.3; O2SAT 93–99; BMI 34.3; BMI 38.2
--- NOTE | 2020-07-17 09:49 | CT_ITS ---
STUDY: CTA CHEST REASON FOR EXAM: Female, 34 years old. SOB, post RADIATION DOSAGE (If Supplied By Facility): CTDIvol = ( 11.92 ) mGy, DLP = ( 476.40 ) mGycm TECHNIQUE: The examination was performed with the intravenous administration of IV 100mL Isovue-370. Post-processing of the angiographic images was performed, with multiplanar reformation and 3D reconstruction. Individualized dose optimization techniques were used for this CT. COMPARISON: None. FINDINGS: Small bilateral benign appearing axillary lymph nodes. Normal enhancement of the main pulmonary artery and right and left pulmonary arteries. Normal enhancement of the bilateral peripheral pulmonary arteries. There is no demonstrated pulmonary embolism. Normal thoracic aorta and visualized great vessels. There is no demonstrated aortic dissection. Normal heart and pericardium. Normal mediastinum. Normal hilar regions. Normal visualized trachea and bronchi. The lungs are well expanded. Small bilateral pleural effusions right greater than left. Mild increased septal markings in the right lower lobe as well as in the right middle lobe with focal areas of the confluence. Normal chest wall structures. Normal osseous structures. Normal visualized upper abdomen. CT/CTA Chest W/WO Contrast IMPRESSION: No evidence of pulmonary embolism. Small bilateral pleural effusions right greater than left with increased septal markings in the right lower lobe as well as in the right middle lobe with focal areas of confluence. Electronically Signed: Easton Carmen MD at 11:00 EDT , Service support ,
--- NOTE | 2020-07-17 09:49 | EKG12_ITS ---
Test Reason : SOB Blood Pressure : / mmHG Vent. Rate : 065 BPM Atrial Rate : 065 BPM P-R Int : 134 ms QRS Dur : 078 ms QT Int : 384 ms P-R-T Axes : 063 036 055 degrees QTc Int : 399 ms Normal sinus rhythm with sinus arrhythmia Normal ECG Confirmed by ANJUM GONZALEZ, SHYANNE ([id number]), desk editor HARLEY MERA ([id number]) on 07/20/2020 1:31:39 PM Referred By: JOURDAN Confirmed By:SHYANNE VALERO MD
--- NOTE | 2020-07-17 09:51 | ED.VIS.DYS ---
HPI History of Present Illness Chief Complaint: Shortness of Breath Informant: patient Narrative Narrative: Patient is a 34-year-old female that is 5 days after vaginal delivery presenting with shortness of breath. Patient states she had worsening shortness of breath dyspnea exertion for the past 2 to 3 days. This morning she was carrying her 7 pound baby around the house and felt very short of breath so her OB recommend she come to the emergency room to be evaluated further. She notes she has had some swelling of her legs, left slightly worse than right since her delivery. She notes that she had this after her prior delivery to and had a negative DVT study. She did not have the shortness of breath after her first delivery. She states she did receive IV fluids during her delivery. She denies associated chest pain. She knows she has a tight feeling at the base of her throat was and is worse when she leans back. She has associated dry cough with this. Patient states she had normal amount of vaginal bleeding. She is breast-feeding. Patient denies any fever or sick contacts. PFSH PFS Medical History Anxiety and depression Infertility Polycystic ovaries depression Seizures Home Medications vit,[id number] 1 tab PO DAILY 07/28/16 [History Last Taken 07/17/20] naproxen 250 - 500 mg PO Q8H PRN PRN #30 tab 07/11/20 [Rx Last Taken Unknown] citalopram 20 mg PO DAILY 07/17/20 [History Last Taken 07/17/20] Allergy/AdvReac Type Severity Reaction Status Date / Time adhesive Allergy Mild Unknown Verified 07/17/20 09:38 latex Allergy Unknown Verified 07/17/20 09:38 Sulfa (Sulfonamide Allergy Hives Verified 07/17/20 09:38 Antibiotics) Family History Grandmother Diabetes Hypertension Aunt Breast cancer Lupus Grandfather Heart disease Myocardial infarction Unknown Uterine cancer Surgical History History of tonsillectomy History of wisdom tooth extraction, class II edentulism Social History (Reviewed 07/17/20 @ 09:[address] BRISEYDA Huff adopted: No household members: family number of children: 1 Smoking Status: Never smoker second hand exposure: No alcohol intake: never substance use type: does not use caffeine: Yes what type of physical activity do you participate in: none seatbelt use: always do you feel safe at home: Yes additional social history: Shalini Santoyo at the [facility] ROS ED Constitutional Constitutional ED: Denies fatigue or weakness Eyes Eyes: Denies blurry vision or other visual disturbances ENT ENT ED: Reports sore throat Cardiovascular Cardiovascular: Denies chest pain or palpitations Respiratory/Chest Respiratory/Chest: Reports cough, dyspnea and dyspnea on exertion; Denies sputum Gastrointestinal Gastrointestinal: Denies abdominal pain, nausea or vomiting Genitourinary Genitourinary ED: Denies decreased urination or dysuria Musculoskeletal Musculoskeletal: Reports other Details: edema ; Denies extremity pain Integumentary Denies new lesions or rash Neurologic Neurologic: Denies paresthesias or weakness Psychiatric Psychiatric: Denies anxiety or depression Hematologic/Lymphatic Hematologic/Lymphatic: Denies easy bleeding or easy bruising EXAM Physical Exam Const Vital Signs: 07/17/20 09:35 07/17/20 10:18 07/17/20 11:00 Temperature 98 F 98 F 97.6 F L Temperature Source Temporal Temporal Temporal Pulse Rate 68 73 65 Respiratory Rate 20 H 23 H 17 Respiratory Effort Normal Non-Labored Respiratory Depth Normal Respiratory Pattern Normal Blood Pressure 149/84 H 127/84 H 131/83 H Blood Pressure Mean 105 98 99 Blood Pressure Source Blood Pressure Position Blood Pressure Location Pulse Ox 95 94 95 Oxygen Delivery Method Room Air Room Air Room Air 07/17/20 12:46 07/17/20 13:12 07/17/20 13:26 Temperature 98.1 F 99.0 F Temperature Source Temporal Oral Pulse Rate 61 65 72 Respiratory Rate 23 H 12 Respiratory Effort Respiratory Depth Respiratory Pattern Blood Pressure 127/81 H 109/78 Blood Pressure Mean 96 88 Blood Pressure Source Monitor Blood Pressure Position Semi-Fowlers Blood Pressure Location Left Arm Pulse Ox 96 97 Oxygen Delivery Method Room Air Room Air 07/17/20 13:28 Temperature Temperature Source Pulse Rate Respiratory Rate Respiratory Effort Respiratory Depth Respiratory Pattern Blood Pressure Blood Pressure Mean Blood Pressure Source Blood Pressure Position Blood Pressure Location Pulse Ox Oxygen Delivery Method Room Air Positive well nourished, well developed, alert and oriented x3 General Appearance ED: well developed HEENT Reports normocephalic and moist mucous membranes normocephalic and atraumatic Mouth ED: Yes moist mucous membranes normal Eyes PERRL and EOMs intact bilaterally General Eye ED: Yes normal appearance of both eyes Pupil: PERRL Neck no lymphadenopathy, supple and no JVD Lymph Lymphatic: no lymphadenopathy noted Chest Wall inspection of chest normal and palpation of chest normal Resp normal respiratory effort, normal air movement and clear to auscultation bilaterally Cardio regular rate, regular rhythm and no murmurs Peripheral Pulses: pulses 2+ throughout GI non-tender Palpation: soft Back/Spine no CVA tenderness and normal to inspection Extremity normal to inspection and full ROM General Extremety ED: Negative for edema General Extremity: Negative for edema Neuro oriented x3, moves all extremities and no focal motor deficits Sensorium / Orientation: alert Psych mental status grossly normal and thought process normal Skin no rashes or lesions noted and no petechiae MDM MDM MDM Narrative Medical decision making narrative: Patient is evaluated for increased shortness of breath dyspnea exertion in the period. Differential includes PE, infection as well as cardiomyopathy. CTA obtained does not show any PE but does show bilateral pleural effusions. Patient has an elevation of her BNP of 444. Patient does not have any known cardiac history. Troponin is normal. EKG is normal. Patient does have a mild leukocytosis however this is nonspecific and she does not have any IV source of infection. Case is discussed with cardiology on-call, , who feels that admission is warranted and she is stable for our hospital. He does recommend ordering a stat echo cardiogram. This is put in per his request. Patient started IV Lasix. She will be admitted to OB service, Dr. Freire. Patient is not requiring any supplementary oxygen. She is hemodynamically stable. She is agreeable to this plan of care. Patient is able to pump in the ER and we will arrange so that she can have her with her on the medical floor. Lab Data Labs: Laboratory Results - last 24 hr 07/17/20 07/17/20 07/17/20 09:55 09:55 09:55 WBC 13.8 H RBC 2.97 L Hgb 8.4 L Hct 26.6 L MCV 89.6 MCH 28.3 MCHC 31.6 L RDW Std Deviation 46.7 H RDW Coeff of Rosita 14.5 Plt Count 445 MPV 9.9 Immature Gran % (Auto) 1.700 H Neut % (Auto) 72.7 H Lymph % (Auto) 11.8 L [place] % (Auto) 8.2 Eos % (Auto) 5.2 H Baso % (Auto) 0.4 Absolute Neuts (auto) 10.1 H Absolute Lymphs (auto) 1.64 Nucleated RBC % 0 Sodium 139 Potassium 4.1 Chloride 108 H Carbon Dioxide 24.0 Anion Gap 7 BUN 14 Creatinine 0.74 Estim Creat Clear Calc 94.25 Est GFR (MDRD) Af Amer 116 Est GFR (MDRD) Non-Af 96 BUN/Creatinine Ratio 18.9 Glucose 69 L Calcium 8.1 L Magnesium 2.2 Total Bilirubin 0.30 Direct Bilirubin 0.12 AST 26 ALT 42 Alkaline Phosphatase 101 Troponin I < 0.015 B-Natriuretic Peptide 444.4 H Total Protein 6.6 Albumin 2.6 L Globulin 4.0 Urine Color Urine Clarity Urine pH Ur Specific [place] Urine Protein Urine Glucose (UA) Urine Ketones Urine Occult Blood Urine Nitrite Urine Bilirubin Urine Urobilinogen Ur Leukocyte Esterase Urine RBC Urine WBC Ur Squamous Epith Cells Urine Bacteria Urine Mucus 07/17/20 12:41 WBC RBC Hgb Hct MCV MCH MCHC RDW Std Deviation RDW Coeff of Rosita Plt Count MPV Immature Gran % (Auto) Neut % (Auto) Lymph % (Auto) [place] % (Auto) Eos % (Auto) Baso % (Auto) Absolute Neuts (auto) Absolute Lymphs (auto) Nucleated RBC % Sodium Potassium Chloride Carbon Dioxide Anion Gap BUN Creatinine Estim Creat Clear Calc Est GFR (MDRD) Af Amer Est GFR (MDRD) Non-Af BUN/Creatinine Ratio Glucose Calcium Magnesium Total Bilirubin Direct Bilirubin AST ALT Alkaline Phosphatase Troponin I B-Natriuretic Peptide Total Protein Albumin Globulin Urine Color Yellow Urine Clarity Clear Urine pH 7.0 Ur Specific [place] 1.010 Urine Protein Negative Urine Glucose (UA) Normal Urine Ketones Negative Urine Occult Blood 250 H Urine Nitrite Negative Urine Bilirubin Negative Urine Urobilinogen Normal Ur Leukocyte Esterase 500 H Urine RBC 10-25 SEEN Urine WBC 25-50 SEEN Ur Squamous Epith Cells 0 SEEN Urine Bacteria 1+ Urine Mucus 0 SEEN Radiography Chest X-Ray - ED: 1 View, Read by ED Physician, Read by Radiologist, Right Effusion and Left Effusion Diagnostic Testing: Radiology Impression Chest CTA 07/17/20 09:49 IMPRESSION: No evidence of pulmonary embolism. Small bilateral pleural effusions right greater than left with increased septal markings in the right lower lobe as well as in the right middle lobe with focal areas of confluence. Electronically Signed: Easton Carmen MD at 11:00 EDT , Service support , Chest X-Ray 07/17/20 10:30 IMPRESSION: Blunting of both clustering angles with mild increased markings at the lung bases more prominent on the right side. Electronically Signed: Easton Carmen MD at 11:01 EDT , Service support , Echocardiogram 07/17/20 11:40 Interpretation Summary The estimated ejection fraction is EF 50-55% Normal LV systolic function Mild MR mild TR Ordering Physician: Tomeka Fallon Referring Physician: Hari Stokes Performed By: Jessica Whitley, RDCS, RVT Discharge Plan Dx/Rx/DC Orders Clinical Impression: cardiomyopathy, SOB (shortness of breath) on exertion Disposition Disposition: Acute Care Hospital [facility] Discharge Date/Time: 07/17/20 12:53
[2020-07-17 10:02] LABS: Absolute Lymphocyte Count 1.64 X10^3/uL (0.83-4.51); Absolute Neutrophil Count 10.1 X10^3/uL (2.0-7.7); Basophil# 0.06 X10^3/uL; Basophil% 0.4 % (0-1); Eosinophil# 0.72 X10^3/uL; Eosinophils% 5.2 % (0-5); Hematocrit 26.6 % (37-47); Hemoglobin 8.4 g/dL (12.0-15.0); Lymphocyte # 1.64 X10^3/ul (0.83-4.51); Lymphocyte % 11.8 % (19-41); Mean Corp Hgb Conc 31.6 g/dL (32-36); Mean Corpuscular Hgb 28.3 pg (27.0-32.0); Mean Corpuscular Volume 89.6 fL (81-99); Mean Platelet Vol. 9.9 fl (6.2-12.0); Monocyte# 1.13 X10^3/uL; Monocyte% 8.2 % (0-10); NRBC Flagged by Analyzer 0 % (0-5); Neutrophil # 10.06 X10^3/uL (2.7-7.7); Neutrophil % 72.7 % (47-70); Platelet Count 445 K/mm3 (150-450); RBC Distribution Width CV 14.5 % (11.6-14.6); RBC Distribution Width SD 46.7 fl (35.1-43.9); Red Blood Count 2.97 M/mm3 (4.2-5.4); White Blood Count 13.8 K/mm3 (4.4-11.0)
[2020-07-17 10:23] LABS: AST(SGOT) 26 U/L (15-37); Alanine Aminotransfer ALT/SGPT 42 U/L (13-56); Albumin, Serum 2.6 g/dL (3.2-5.0); Alkaline Phosphatase 101 U/L (45-117); Anion Gap 7 (5-15); BNP,B-Type NATRIURETIC PEPTIDE 444.4 pg/mL (0-100); BUN 14 mg/dL (7-18); BUN/Creat Ratio 18.9 RATIO (10-20); Bilirubin, Direct 0.12 mg/dL (0.00-0.30); Calcium,Total 8.1 mg/dL (8.5-10.1); Chloride 108 mmol/L (98-107); Creatinine, Serum 0.74 mg/dL (0.55-1.02); EST Glomerular Filtration Rate 96 mL/min (>60); Est Glom Filt Rate - Afr Amer 116 mL/min (>60); Estimated Creatinine Clearance 94.25 ml/min; Glucose 69 mg/dL (74-106); Magnesium 2.2 mg/dL (1.6-2.6); Potassium 4.1 mmol/L (3.5-5.1); Protein, Total 6.6 g/dL (6.4-8.2); Sodium Level 139 mmol/L (136-145)
--- NOTE | 2020-07-17 10:30 | RAD_ITS ---
STUDY: X-RAY CHEST REASON FOR EXAM: Female, 34 years old. Sob TECHNIQUE: Single AP portable view of the chest. COMPARISON: None. FINDINGS: EKG electrodes are seen. Blunting of both costal phrenic angles more prominent on the right side. Mild degree of increased linear markings at the lung bases slightly more prominent on the right side. Normal size heart. Normal mediastinum and georgi. Normal visualized pulmonary arteries. Normal visualized aortic arch and descending thoracic aorta. Normal visualized thoracic spine. Normal visualized ribs, clavicles, and shoulders. There is no demonstrated abnormality of the visualized soft tissue structures of the upper abdomen. RAD/Chest 1 View (Portable) IMPRESSION: Blunting of both clustering angles with mild increased markings at the lung bases more prominent on the right side. Electronically Signed: Easton Carmen MD at 11:01 EDT , Service support ,
--- NOTE | 2020-07-17 11:40 | ECHOD_ITS ---
Reason For Study: CHF Procedure This was a 2D Doppler, Color Flow transthoracic echocardiogram. Unable to utilize Definity for endocardial imaging due to PT is . Exam performed portable in ED. Left Ventricle Normal left ventricle. The estimated ejection fraction is EF 50-55% %. Right Ventricle Normal right ventricle. Normal systolic function. Atria The left atrium is mildly enlarged. Mitral Valve The mitral valve is structurally normal. No prolapse or stenosis seen. Mild (1+) eccentric mitral valve insufficiency. Tricuspid Valve Normal tricuspid valve. Mild tricuspid valve insufficiency. Aortic Valve Normal aortic valve. Pulmonic Valve The pulmonic valve is not well visualized. Great Vessels Normal aortic root. Pericardium/Pleural No pericardial effusion. MMode/2D Measurements & Calculations LVIDd: 5.4 cm IVSd: 0.91 cm LAV(MOD-bp): 58.9 ml LVIDs: 3.5 cm LVPWd: 0.93 cm LAV(MOD-bp) Indexed: 31.4 ml/m2 RVDd: 3.4 cm FS: 34.4 % LAV(MOD-sp2): 59.9 ml LAV(MOD-sp4): 59.8 ml LA dimension(2D): 4.2 cm LA A4 area: 20.4 cm2 RA A4 area: 19.4 cm2 Time Measurements MV dec time: 0.17 sec Doppler Measurements & Calculations MV E max porter: 96.7 cm/sec Lat Peak E' Porter: 14.2 cm/sec Med Peak E' Porter: 11.4 cm/sec MV A max porter: 65.9 cm/sec E/E' lat: 6.8 E/E' med: 8.5 MV E/A: 1.5 Ao V2 max: 142.2 cm/sec LV V1 max: 107.2 cm/sec PA V2 max: 119.6 cm/sec Ao max P.1 mmHg LV V1 max P.6 mmHg TR max porter: 267.8 cm/sec TR max P.7 mmHg ECHO/Echo Complete Interpretation Summary The estimated ejection fraction is EF 50-55% Normal LV systolic function Mild MR mild TR Ordering Physician: Tomeka Fallon Referring Physician: Hari Stokes Performed By: Jessica Whitley, ZHOU, RVT
[2020-07-17] MEDS: Furosemide 40 MG/4 ML Vial IV ×2 (12:45→17:30)
[2020-07-17 12:47] LABS: Mucous, Urine 0 SEEN /hpf (<or=2+); Squamous Epithelial Cells - UA 0 SEEN /hpf (5-10)
[2020-07-17 12:50] LABS: Color, Urine Yellow (Yellow); Glucose, Dipstick Normal (Normal); Ketone-Dipstick Negative (Negative); Leukocyte Esterase-Dipstick 500 /ul (Negative); Nitrite-Dipstick Negative (Negative); Occult Blood-Urine 250 /ul (Negative); Protein-Dipstick Negative (Negative); Urine Bilirubin Dipstick Negative (Negative); Urine Clarity Clear (Clear); Urine Urobilinogen Normal (Normal)
[2020-07-17 13:07] LABS: Bacteria 1+ /hpf (None Seen); Red Blood Cells-Urine 10-25 SEEN /hpf (0-5); White Blood Cells 25-50 SEEN /hpf (0-5)
--- NOTE | 2020-07-17 13:33 | HP.PCM_ITS ---
HPI - General General Date of Admission: 07/17/20 HPI Narrative GUS KELLEY, is a 34 F who presents 1 week with shortness of breath on exertion and upon evaluation had significantly elevated BNP and bilateral pulmonary edema. Patient denies any chest pain but has shortness of breath. CT negative for any clot. Vaginal bleeding is within normal limits . [facility] Medical History Anxiety and depression Infertility Polycystic ovaries depression Seizures Home Medications vit,[id number] 1 tab PO DAILY 07/28/16 [History Last Taken 07/17/20] naproxen 250 - 500 mg PO Q8H PRN PRN #30 tab 07/11/20 [Rx Last Taken Unknown] citalopram 20 mg PO DAILY 07/17/20 [History Last Taken 07/17/20] Allergy/AdvReac Type Severity Reaction Status Date / Time adhesive Allergy Mild Unknown Verified 07/17/20 09:38 latex Allergy Unknown Verified 07/17/20 09:38 Sulfa (Sulfonamide Allergy Hives Verified 07/17/20 09:38 Antibiotics) Family History Grandmother Diabetes Hypertension Aunt Breast cancer Lupus Grandfather Heart disease Myocardial infarction Unknown Uterine cancer Surgical History History of tonsillectomy History of wisdom tooth extraction, class II edentulism Social History adopted: No household members: family number of children: 1 Smoking Status: Never smoker second hand exposure: No alcohol intake: never substance use type: does not use caffeine: Yes what type of physical activity do you participate in: none seatbelt use: always do you feel safe at home: Yes additional social history: Shalini Santoyo at the [facility] Constitutional Constitutional: Reports body ache(s) and fatigue Eyes Eyes: Reports systems reviewed and no addt'l complaints, except as documented ENT HEENT: Reports systems reviewed and no addt'l complaints, except as documented Cardiovascular Cardiovascular: Reports systems reviewed and no addt'l complaints, except as documented and dyspnea on exertion Respiratory/Chest Respiratory/Chest: Reports systems reviewed and no addt'l complaints, except as documented and as per HPI Gastrointestinal Gastrointestinal: Reports systems reviewed and no addt'l complaints, except as documented and as per HPI Genitourinary Genitourinary: Reports systems reviewed and no addt'l complaints, except as documented Musculoskeletal Musculoskeletal: Reports systems reviewed and no addt'l complaints, except as documented Integumentary Integumentary: Reports systems reviewed and no addt'l complaints, except as documented Neurologic Neurologic: Reports systems reviewed and no addt'l complaints, except as documented Psychiatric Psychiatric: Reports systems reviewed and no addt'l complaints, except as documented Endocrine Endocrinology: Reports systems reviewed and no addt'l complaints, except as documented Hematologic/Lymphatic Hematologic/Lymphatic: Reports systems reviewed and no addt'l complaints, except as documented Allergic/Immunologic Allergic/Immunologic: Reports systems reviewed and no addt'l complaints, except as documented Vital Signs Vital Signs Vital Signs: 07/17/20 09:35 07/17/20 10:18 07/17/20 11:00 Temperature 98 F 98 F 97.6 F L Temperature Source Temporal Temporal Temporal Pulse Rate 68 73 65 Respiratory Rate 20 H 23 H 17 Respiratory Effort Normal Non-Labored Respiratory Depth Normal Respiratory Pattern Normal Blood Pressure 149/84 H 127/84 H 131/83 H Blood Pressure Mean 105 98 99 Blood Pressure Source Blood Pressure Position Blood Pressure Location Pulse Ox 95 94 95 Oxygen Delivery Method Room Air Room Air Room Air 07/17/20 12:46 07/17/20 13:12 07/17/20 13:26 Temperature 98.1 F 99.0 F Temperature Source Temporal Oral Pulse Rate 61 65 72 Respiratory Rate 23 H 12 Respiratory Effort Respiratory Depth Respiratory Pattern Blood Pressure 127/81 H 109/78 Blood Pressure Mean 96 88 Blood Pressure Source Monitor Blood Pressure Position Semi-Fowlers Blood Pressure Location Left Arm Pulse Ox 96 97 Oxygen Delivery Method Room Air Room Air 07/17/20 13:28 Temperature Temperature Source Pulse Rate Respiratory Rate Respiratory Effort Respiratory Depth Respiratory Pattern Blood Pressure Blood Pressure Mean Blood Pressure Source Blood Pressure Position Blood Pressure Location Pulse Ox Oxygen Delivery Method Room Air Weight Weight: 223 lb Body Mass Index (BMI) 38.2 Results Lab / Micro Data Result Diagrams: 07/18/20 05:20 07/18/20 05:20 Labs: Laboratory Results - last 24 hr 07/17/20 07/17/20 07/17/20 09:55 09:55 09:55 WBC 13.8 H RBC 2.97 L Hgb 8.4 L Hct 26.6 L MCV 89.6 MCH 28.3 MCHC 31.6 L RDW Std Deviation 46.7 H RDW Coeff of Rosita 14.5 Plt Count 445 MPV 9.9 Immature Gran % (Auto) 1.700 H Neut % (Auto) 72.7 H Lymph % (Auto) 11.8 L [place] % (Auto) 8.2 Eos % (Auto) 5.2 H Baso % (Auto) 0.4 Absolute Neuts (auto) 10.1 H Absolute Lymphs (auto) 1.64 Nucleated RBC % 0 Sodium 139 Potassium 4.1 Chloride 108 H Carbon Dioxide 24.0 Anion Gap 7 BUN 14 Creatinine 0.74 Estim Creat Clear Calc 94.25 Est GFR (MDRD) Af Amer 116 Est GFR (MDRD) Non-Af 96 BUN/Creatinine Ratio 18.9 Glucose 69 L Calcium 8.1 L Magnesium 2.2 Total Bilirubin 0.30 Direct Bilirubin 0.12 AST 26 ALT 42 Alkaline Phosphatase 101 Troponin I < 0.015 B-Natriuretic Peptide 444.4 H Total Protein 6.6 Albumin 2.6 L Globulin 4.0 Urine Color Urine Clarity Urine pH Ur Specific [place] Urine Protein Urine Glucose (UA) Urine Ketones Urine Occult Blood Urine Nitrite Urine Bilirubin Urine Urobilinogen Ur Leukocyte Esterase Urine RBC Urine WBC Ur Squamous Epith Cells Urine Bacteria Urine Mucus 07/17/20 12:41 WBC RBC Hgb Hct MCV MCH MCHC RDW Std Deviation RDW Coeff of Rosita Plt Count MPV Immature Gran % (Auto) Neut % (Auto) Lymph % (Auto) [place] % (Auto) Eos % (Auto) Baso % (Auto) Absolute Neuts (auto) Absolute Lymphs (auto) Nucleated RBC % Sodium Potassium Chloride Carbon Dioxide Anion Gap BUN Creatinine Estim Creat Clear Calc Est GFR (MDRD) Af Amer Est GFR (MDRD) Non-Af BUN/Creatinine Ratio Glucose Calcium Magnesium Total Bilirubin Direct Bilirubin AST ALT Alkaline Phosphatase Troponin I B-Natriuretic Peptide Total Protein Albumin Globulin Urine Color Yellow Urine Clarity Clear Urine pH 7.0 Ur Specific [place] 1.010 Urine Protein Negative Urine Glucose (UA) Normal Urine Ketones Negative Urine Occult Blood 250 H Urine Nitrite Negative Urine Bilirubin Negative Urine Urobilinogen Normal Ur Leukocyte Esterase 500 H Urine RBC 10-25 SEEN Urine WBC 25-50 SEEN Ur Squamous Epith Cells 0 SEEN Urine Bacteria 1+ Urine Mucus 0 SEEN Micro: Microbiology 07/17/20 10:15 SARS-CoV-2 Antigen (Rapid) - Final Mucosa - Nose Radiology Impression Chest CTA 07/17/20 09:49 IMPRESSION: No evidence of pulmonary embolism. Small bilateral pleural effusions right greater than left with increased septal markings in the right lower lobe as well as in the right middle lobe with focal areas of confluence. Electronically Signed: Easton Carmen MD at 11:00 EDT , Service support , Chest X-Ray 07/17/20 10:30 IMPRESSION: Blunting of both clustering angles with mild increased markings at the lung bases more prominent on the right side. Electronically Signed: Easton Carmen MD at 11:01 EDT , Service support , Assessment & Plan Assessment/Plan (1) cardiac complication: PLAN: admit patient to PCU, consult cardiology. echo ordered. IV lasix. lovenox prophylaxis patient (2) SOB (shortness of breath) on exertion:
[2020-07-17] MEDS: Enoxaparin 40 MG/0.4 ML Syringe SC (13:59)
--- NOTE | 2020-07-17 14:13 | NURSING ---
This RN spoke with franchise consultant, Elysia. She sent up information for patient on lasix. Per LC, there is no risk for lasix to be trasmitted through breast milk. However, there is risk for decreasing milk supply. Specifically this patient has a history of over supply, so risk is low. Patient educated on this and aware.
--- NOTE | 2020-07-17 15:47 | PCM.CONS.C ---
Assessment & Plan Assessment/Plan (1) SOB (shortness of breath) on exertion: PLAN: 34-year-old patient, admitted through the ED at [facility] with symptoms of shortness of breath Patient is 6 days and she noted the symptoms for the last 2 to 3 days on exertion clearly noted today when she was cutting her new baby he was more short of breath and came to the ER She did mention that she had similar experience and her 30s delivery 2 years ago but not requiring medication. Past medical history significant for anxiety depression polycystic ovary disease and also she had a history of depression mild and has been on treatment with Celexa. Patient tested negative for Covid Cardiac exam underlying cardiac rhythm is normal sinus there is no murmur no systolic or diastolic murmur, patient has a +2 lower extremity pitting edema. On chest examination she has a bilateral basal rales with diminished air entry Chest x-ray is consistent with mild bilateral pleural effusion Patient responded well to IV diuretic with Lasix On the CT chest showed no evidence of pulmonary lesion. The echocardiographic evaluation revealed preserved LV systolic function and normal RV size and RV systolic function She has a mild MR with mild TR Plan and recommendations; Clinical impression she has acute heart failure/HFpEF Responding very well to diuretic therapy There is no clinical evidence or echocardiographic evidence of cardiomyopathy. We will continue to monitor with medical therapy She will require further cardiac evaluation once stable with, CTA coronary and event monitor. This can be set up as an outpatient. HPI Consult Data Date of Consult: 07/17/20 HPI Narrative Reason for Consultation: shortness of breath/chf HPI Narrative: GUS KELLEY, is a 34 F who presents [facility] Medical History Anxiety and depression Infertility Polycystic ovaries depression Seizures Home Medications vit,[id number] 1 tab PO DAILY 07/28/16 [History Last Taken 07/17/20] naproxen 250 - 500 mg PO Q8H PRN PRN #30 tab 07/11/20 [Rx Last Taken Unknown] citalopram 20 mg PO DAILY 07/17/20 [History Last Taken 07/17/20] Allergy/AdvReac Type Severity Reaction Status Date / Time adhesive Allergy Mild Unknown Verified 07/17/20 09:38 latex Allergy Unknown Verified 07/17/20 09:38 Sulfa (Sulfonamide Allergy Hives Verified 07/17/20 09:38 Antibiotics) Family History Grandmother Diabetes Hypertension Aunt Breast cancer Lupus Grandfather Heart disease Myocardial infarction Unknown Uterine cancer Surgical History History of tonsillectomy History of wisdom tooth extraction, class II edentulism Social History adopted: No household members: family number of children: 1 Smoking Status: Never smoker second hand exposure: No alcohol intake: never substance use type: does not use caffeine: Yes what type of physical activity do you participate in: none seatbelt use: always do you feel safe at home: Yes additional social history: Shalini Santoyo at the [facility] Physical Exam Narrative Seen and evaluated at the bedside with the nursing staff Recent , alert orientated x3 was able to give detailed history at bedside at time of evaluation. Shortness of breath is improving with IV diuretic environmental monitoring specialist showed underlying normal sinus and been stable hemodynamically. Cardiac examination; S1-S2 regular, no murmur, no gallop, no pericardial rub. Chest examination; Mild bilateral inspiratory rales with diminished air entry bilaterally. Examination abdomen; soft Examination lower extremities; Bilateral lower extremity edema/pitting edema +2 No clubbing no cyanosis. Central nervous system examination; No focal neurological deficit. Objective Data Vital Signs: Vital Signs Temp Pulse Resp BP Pulse Ox 99.0 F 72 12 109/78 97 07/17/20 13:12 07/17/20 14:57 07/17/20 13:12 07/17/20 13:12 07/17/20 14:50 Oxygen Delivery Method Room Air Weight: 223 lb Body Mass Index (BMI) 38.2 Lab / Micro Data Result Diagrams: 07/17/20 09:55 07/17/20 09:55 Labs: Laboratory Results - last 24 hr 07/17/20 07/17/20 07/17/20 09:55 09:55 09:55 WBC 13.8 H RBC 2.97 L Hgb 8.4 L Hct 26.6 L MCV 89.6 MCH 28.3 MCHC 31.6 L RDW Std Deviation 46.7 H RDW Coeff of Rosita 14.5 Plt Count 445 MPV 9.9 Immature Gran % (Auto) 1.700 H Neut % (Auto) 72.7 H Lymph % (Auto) 11.8 L [place] % (Auto) 8.2 Eos % (Auto) 5.2 H Baso % (Auto) 0.4 Absolute Neuts (auto) 10.1 H Absolute Lymphs (auto) 1.64 Nucleated RBC % 0 Sodium 139 Potassium 4.1 Chloride 108 H Carbon Dioxide 24.0 Anion Gap 7 BUN 14 Creatinine 0.74 Estim Creat Clear Calc 94.25 Est GFR (MDRD) Af Amer 116 Est GFR (MDRD) Non-Af 96 BUN/Creatinine Ratio 18.9 Glucose 69 L Calcium 8.1 L Magnesium 2.2 Total Bilirubin 0.30 Direct Bilirubin 0.12 AST 26 ALT 42 Alkaline Phosphatase 101 Troponin I < 0.015 B-Natriuretic Peptide 444.4 H Total Protein 6.6 Albumin 2.6 L Globulin 4.0 Urine Color Urine Clarity Urine pH Ur Specific [place] Urine Protein Urine Glucose (UA) Urine Ketones Urine Occult Blood Urine Nitrite Urine Bilirubin Urine Urobilinogen Ur Leukocyte Esterase Urine RBC Urine WBC Ur Squamous Epith Cells Urine Bacteria Urine Mucus 07/17/20 12:41 WBC RBC Hgb Hct MCV MCH MCHC RDW Std Deviation RDW Coeff of Rosita Plt Count MPV Immature Gran % (Auto) Neut % (Auto) Lymph % (Auto) [place] % (Auto) Eos % (Auto) Baso % (Auto) Absolute Neuts (auto) Absolute Lymphs (auto) Nucleated RBC % Sodium Potassium Chloride Carbon Dioxide Anion Gap BUN Creatinine Estim Creat Clear Calc Est GFR (MDRD) Af Amer Est GFR (MDRD) Non-Af BUN/Creatinine Ratio Glucose Calcium Magnesium Total Bilirubin Direct Bilirubin AST ALT Alkaline Phosphatase Troponin I B-Natriuretic Peptide Total Protein Albumin Globulin Urine Color Yellow Urine Clarity Clear Urine pH 7.0 Ur Specific [place] 1.010 Urine Protein Negative Urine Glucose (UA) Normal Urine Ketones Negative Urine Occult Blood 250 H Urine Nitrite Negative Urine Bilirubin Negative Urine Urobilinogen Normal Ur Leukocyte Esterase 500 H Urine RBC 10-25 SEEN Urine WBC 25-50 SEEN Ur Squamous Epith Cells 0 SEEN Urine Bacteria 1+ Urine Mucus 0 SEEN Micro: Microbiology 07/17/20 10:15 Mucosa - Nose SARS-CoV-2 Antigen (Rapid) - Final Cardiology Labs/Tests 07/17/20 09:55: WBC 13.8 H, RBC 2.97 L, Hgb 8.4 L, Hct 26.6 L, MCV 89.6, MCH 28.3, MCHC 31.6 L, Plt Count 445, MPV 9.9, Immature Gran % (Auto) 1.700 H, Neut % (Auto) 72.7 H, Lymph % (Auto) 11.8 L, [place] % (Auto) 8.2, Eos % (Auto) 5.2 H, Baso % (Auto) 0.4, Absolute Neuts (auto) 10.1 H, Nucleated RBC % 0 07/17/20 09:55: Sodium 139, Potassium 4.1, Chloride 108 H, Carbon Dioxide 24.0, Anion Gap 7, BUN 14, Creatinine 0.74, Est GFR (MDRD) Af Amer 116, Est GFR (MDRD) Non-Af 96, BUN/Creatinine Ratio 18.9, Glucose 69 L, Calcium 8.1 L, Magnesium 2.2, Total Bilirubin 0.30, Direct Bilirubin 0.12, Troponin I < 0.015 07/17/20 09:55: B-Natriuretic Peptide 444.4 H 07/17/20 12:41: Urine Color Yellow, Urine Clarity Clear, Urine pH 7.0, Ur Specific [place] 1.010, Urine Protein Negative, Urine Glucose (UA) Normal, Urine Ketones Negative, Urine Occult Blood 250 H, Urine Nitrite Negative, Urine Bilirubin Negative, Urine Urobilinogen Normal, Ur Leukocyte Esterase 500 H, Urine RBC 10-25 SEEN, Urine WBC 25-50 SEEN Rhythm: Normal sinus rhythm Radiography Diagnostic Testing: Radiology Impression Chest CTA 07/17/20 09:49 IMPRESSION: No evidence of pulmonary embolism. Small bilateral pleural effusions right greater than left with increased septal markings in the right lower lobe as well as in the right middle lobe with focal areas of confluence. Electronically Signed: Easton Carmen MD at 11:00 EDT , Service support , Chest X-Ray 07/17/20 10:30 IMPRESSION: Blunting of both clustering angles with mild increased markings at the lung bases more prominent on the right side. Electronically Signed: Easton Carmen MD at 11:01 EDT , Service support , Echocardiogram 07/17/20 11:40 Interpretation Summary The estimated ejection fraction is EF 50-55% Normal LV systolic function Mild MR mild TR Ordering Physician: Tomeka Fallon Referring Physician: Hari Stoeks Performed By: Jessica Whitley, ZHOU, RVT
[2020-07-17] MEDS: 0.9% Saline Lock 10 ML Syringe IV (17:30)
[2020-07-18 03:01] VITALS: PULSE 51
[2020-07-18 04:30] VITALS: BP 123/72; PULSE 64; RESP 18; TEMP 37.3; O2SAT 98
[2020-07-18 06:41] LABS: Absolute Lymphocyte Count 1.75 X10^3/uL (0.83-4.51); Absolute Neutrophil Count 8.5 X10^3/uL (2.0-7.7); Basophil# 0.08 X10^3/uL; Basophil% 0.6 % (0-1); Eosinophil# 0.61 X10^3/uL; Eosinophils% 4.9 % (0-5); Hematocrit 28.6 % (37-47); Hemoglobin 8.9 g/dL (12.0-15.0); Lymphocyte # 1.75 X10^3/ul (0.83-4.51); Lymphocyte % 14.1 % (19-41); Mean Corp Hgb Conc 31.1 g/dL (32-36); Mean Corpuscular Hgb 27.6 pg (27.0-32.0); Mean Corpuscular Volume 88.8 fL (81-99); Monocyte# 1.07 X10^3/uL; Monocyte% 8.6 % (0-10); NRBC Flagged by Analyzer 0.2 % (0-5); Neutrophil # 8.45 X10^3/uL (2.7-7.7); Neutrophil % 68.5 % (47-70); Platelet Count 551 K/mm3 (150-450); RBC Distribution Width CV 14.4 % (11.6-14.6); RBC Distribution Width SD 46.1 fl (35.1-43.9); Red Blood Count 3.22 M/mm3 (4.2-5.4); White Blood Count 12.4 K/mm3 (4.4-11.0)
[2020-07-18 07:00] VITALS: PULSE 57
[2020-07-18 07:03] LABS: Anion Gap 6 (5-15); BUN 16 mg/dL (7-18); BUN/Creat Ratio 18.9 RATIO (10-20); Calcium,Total 8.4 mg/dL (8.5-10.1); Chloride 103 mmol/L (98-107); Creatinine, Serum 0.84 mg/dL (0.55-1.02); EST Glomerular Filtration Rate 82 mL/min (>60); Est Glom Filt Rate - Afr Amer 100 mL/min (>60); Estimated Creatinine Clearance 83.03 ml/min; Glucose 69 mg/dL (74-106); Potassium 3.8 mmol/L (3.5-5.1); Sodium Level 137 mmol/L (136-145)
[2020-07-18 07:42] VITALS: O2SAT 96
[2020-07-18] MEDS: Furosemide 40 MG Tablet PO (09:18)
[2020-07-18] MEDS: Citalopram 20 MG Tablet PO (09:18)
[2020-07-18] MEDS: Enoxaparin 40 MG/0.4 ML Syringe SC (09:18)
--- NOTE | 2020-07-18 10:30 | PN.OBGYN_ITS ---
Subjective Subjective No chest pain or shortness of breath after IV Lasix given. Significantly reduced edema, no significant pain except for one labial suture post delivery. Ambulating voiding tolerating adequate p.o. Objective Data Objective Data Vital Signs: Vital Signs Temp Pulse Resp BP Pulse Ox 99.1 F 57 L 18 123/72 H 96 07/18/20 04:30 07/18/20 07:00 07/18/20 04:30 07/18/20 04:30 07/18/20 07:42 Oxygen Delivery Method Room Air Weight: 223 lb Body Mass Index (BMI) 38.2 Intake & Output: Intake and Output for Last 24 Hours 07/16/20 07/17/20 07/18/20 23:59 23:59 23:59 Intake Total 1220 / 1820 600 / 600 Output Total 2500 / 4050 1750 / 1750 Balance -1280 / -2230 -1150 / -1150 Lab / Micro Data Result Diagrams: 07/18/20 05:20 07/18/20 05:20 Labs: Laboratory Results - last 24 hr 07/17/20 07/17/20 07/17/20 12:41 16:34 18:55 WBC RBC Hgb Hct MCV MCH MCHC RDW Std Deviation RDW Coeff of Rosita Plt Count MPV Immature Gran % (Auto) Neut % (Auto) Lymph % (Auto) [place] % (Auto) Eos % (Auto) Baso % (Auto) Absolute Neuts (auto) Absolute Lymphs (auto) Nucleated RBC % Sodium Potassium Chloride Carbon Dioxide Anion Gap BUN Creatinine Estim Creat Clear Calc Est GFR (MDRD) Af Amer Est GFR (MDRD) Non-Af BUN/Creatinine Ratio Glucose Calcium Troponin I < 0.015 < 0.015 Urine Color Yellow Urine Clarity Clear Urine pH 7.0 Ur Specific [place] 1.010 Urine Protein Negative Urine Glucose (UA) Normal Urine Ketones Negative Urine Occult Blood 250 H Urine Nitrite Negative Urine Bilirubin Negative Urine Urobilinogen Normal Ur Leukocyte Esterase 500 H Urine RBC 10-25 SEEN Urine WBC 25-50 SEEN Ur Squamous Epith Cells 0 SEEN Urine Bacteria 1+ Urine Mucus 0 SEEN 07/17/20 07/18/20 07/18/20 22:44 05:20 05:20 WBC 12.4 H RBC 3.22 L Hgb 8.9 L Hct 28.6 L MCV 88.8 MCH 27.6 MCHC 31.1 L RDW Std Deviation 46.1 H RDW Coeff of Rosita 14.4 Plt Count 551 H MPV 10.0 Immature Gran % (Auto) 3.300 H Neut % (Auto) 68.5 Lymph % (Auto) 14.1 L [place] % (Auto) 8.6 Eos % (Auto) 4.9 Baso % (Auto) 0.6 Absolute Neuts (auto) 8.5 H Absolute Lymphs (auto) 1.75 Nucleated RBC % 0.2 Sodium 137 Potassium 3.8 Chloride 103 Carbon Dioxide 28.0 Anion Gap 6 BUN 16 Creatinine 0.84 Estim Creat Clear Calc 83.03 Est GFR (MDRD) Af Amer 100 Est GFR (MDRD) Non-Af 82 BUN/Creatinine Ratio 18.9 Glucose 69 L Calcium 8.4 L Troponin I < 0.015 Urine Color Urine Clarity Urine pH Ur Specific [place] Urine Protein Urine Glucose (UA) Urine Ketones Urine Occult Blood Urine Nitrite Urine Bilirubin Urine Urobilinogen Ur Leukocyte Esterase Urine RBC Urine WBC Ur Squamous Epith Cells Urine Bacteria Urine Mucus Micro: Microbiology 07/17/20 10:15 Mucosa - Nose SARS-CoV-2 Antigen (Rapid) - Final Radiography Diagnostic Testing: Radiology Impression Chest CTA 07/17/20 09:49 IMPRESSION: No evidence of pulmonary embolism. Small bilateral pleural effusions right greater than left with increased septal markings in the right lower lobe as well as in the right middle lobe with focal areas of confluence. Electronically Signed: Easton Carmen MD at 11:00 EDT , Service support , Chest X-Ray 07/17/20 10:30 IMPRESSION: Blunting of both clustering angles with mild increased markings at the lung bases more prominent on the right side. Electronically Signed: Easton Carmen MD at 11:01 EDT , Service support , Echocardiogram 07/17/20 11:40 Interpretation Summary The estimated ejection fraction is EF 50-55% Normal LV systolic function Mild MR mild TR __ Ordering Physician: Tomeka Fallon Referring Physician: Hari Stokes Performed By: Jessica Whitley RDCS, RVT Constitutional Constitutional: Reports systems reviewed and no addt'l complaints, except as documented Cardiovascular Cardiovascular: Reports systems reviewed and no addt'l complaints, except as documented Respiratory/Chest Respiratory/Chest: Reports systems reviewed and no addt'l complaints, except as documented Gastrointestinal Gastrointestinal: Reports systems reviewed and no addt'l complaints, except as d ocumented Physical Exam Const alert, oriented x3 and no apparent distress HEENT Head and Scalp: atraumatic Resp normal respiratory effort, normal air movement and clear to auscultation bilaterally Cardio Rate: regular rate Rhythm: regular rhythm Heart Sounds: S1 normal and S2 normal GI soft to palpation and non-tender Bimanual Exam - Vag & Uterus: uterus non-tender Uterus Palpation: uterus fundus firm (below Umbilicus) Assessment & Plan (1) cardiac complication: COMMENT: Admitted . Cardio consult. Plan follow-up with cardio as outpatient, follow-up in office 07/23 PLAN: Admitted for bilateral pulmonary edema. Cardio consult. Echocardiogram shows normal EF with no signs of cardiomyopathy. Lung sounds clear and significant diuresis with IV Lasix. Await cardiology evaluation today and then likely discharge, plan follow-up with cardio as outpatient, follow-up in office 07/23 Lovenox while inpatient we will discontinue upon discharge (2) SOB (shortness of breath) on exertion:
--- NOTE | 2020-07-18 10:36 | PCM.DC ---
Discharge Instructions Diet Discharge Diet: No restrictions Activity Discharge Activity: Return to Normal Activity, May Not Drive (while taking narcotic pain medications.) and May Shower May resume sexual activity in: 4-6 weeks Dressing / Incision Call your doctor if your incision/area has: Continuous Slow Oozing, Sudden Increased Bleeding, Increased Pain/ Swelling, Increased Redness and Foul Smelling Discharge Follow Up Care Please Follow Up With: Alysha Freire MD When: Call [phone] to make an appointment with your doctor in 6 weeks. If you had elevated blood pressure or 4th degree laceration, you will need to be seen in 2 weeks. Test Results: Test results from this visit will be discussed in further detail at your follow-up appointment, if applicable. Discharge Plan Admission Admit Date/Time: 07/17/20 13:29 Attending Provider: Alysha Freire Primary Care Provider: Hari Stokes Consulting Providers: Tamia Benavides Instructions Patient Instructions: Pulmonary Edema Discharge Orders/Prescriptions Prescriptions: Continued vit,[id number] 1 TABLET tablet 1 tab PO DAILY RF: 0 naproxen 250 MG tablet 250 - 500 mg PO Q8H PRN PRN (Reason: MILD PAIN) Qty: 30 RF: 1 citalopram 20 mg tablet 20 mg PO DAILY RF: 0 Referrals / Follow Up: Hari Stokes MD [Primary Care Provider] - Alysha Freire MD [STAFF PHYSICIAN] - 07/23/20 Disposition Disposition (needs filled in before D/C Order can be placed): Home, self care
[2020-07-18 10:46] VITALS: BP 107/78; PULSE 84; RESP 16; TEMP 37.2; O2SAT 99
[2020-07-18 11:00] VITALS: PULSE 93
--- NOTE | 2020-07-18 11:55 | CASEMGMT ---
RN PREM Face to Face with patient for initial transition planning/care coordination assessment. RN CM introduced self and role at [facility]. Patient sitting in chair, alert and oriented. Patient willing to participate in assessment and is able to answer all questions appropriately. Care providers, pharmacy, and demographics verified. Patient wishes to discharge home, denies need for home health at this time. Patient states she has no further needs or concerns at this time. CM to follow for discharge planning needs that may arise. PCP: Kike Specialists: RONALD Freire Preferred Pharmacy: [facility] Insurance: MMO Prescription Benefit: yes Living Will/HPOA: none LNOK: Living Arrangements: Patient lives with in a 2 story home with bed and bath on first floor. Patient states she is independent at home. Transportation: self/ DME/HHC: Patient denies DME or previosu HHC Disposition Plan: Patient to discharge home with family support and follow-up plans in place. Rozina THOMPSON, RN, CM
== END 2020-07-18 14:09 | disposition home or self-care (01) | DRG 776 ==
LOC: ED 09:58 → PCU 13:47
PROVIDERS: Internal Medicine Interventional Cardiology; Admitting Provider Obstetrics & Gynecology; Emergency Provider Emergency Medicine; PCP Family Medicine; Visit Provider Obstetrics & Gynecology
DX: O90.3 Peripartum cardiomyopathy (principal); O99.355 Diseases of the nervous system complicating the puerperium; O99.345 Other mental disorders complicating the puerperium; F53.0 Postpartum depression; O99.285 Endocrine, nutritional and metabolic diseases complicating the puerperium; E28.2 Polycystic ovarian syndrome; G40.909 Epilepsy, unspecified, not intractable, without status epilepticus; Z79.899 Other long term (current) drug therapy
CPT/HCPCS: 36415; 71045; 71275; 80048; 80076; 81001; 83735; 83880; 84484; 85025; 87426; 93005; 93306; 99285; Q9967; A4216; J1940

== ENCOUNTER 2020-08-10 16:51 | Emergency (ER) | payer OTHER, SELFPAY ==
[2020-07-23 15:35] VITALS: BMI 38.2
[2020-08-10 16:51] VITALS: BP 96/84; PULSE 81; RESP 17; TEMP 36.8; O2SAT 98; BMI 35.0
--- NOTE | 2020-08-10 16:53 | NURSING ---
NO OLD EKGS
--- NOTE | 2020-08-10 16:59 | EKG12_ITS ---
Test Reason : Blood Pressure : / mmHG Vent. Rate : 078 BPM Atrial Rate : 078 BPM P-R Int : 138 ms QRS Dur : 078 ms QT Int : 378 ms P-R-T Axes : 059 032 045 degrees QTc Int : 430 ms Normal sinus rhythm Normal ECG Confirmed by SEA GONZALEZ, MARK ([id number]), staff editor GAGE ODONNELL ([id number]) on 08/12/2020 1:56:22 PM Referred By: Confirmed By:MARK OSEI MD
--- NOTE | 2020-08-10 17:00 | EDS_ITS ---
HPI History of Present Illness Chief Complaint: Chest Pain Informant: patient Narrative Narrative: Patient is a 35-year-old previous healthy female who presents to the emergency department for an episode of chest pain that radiated to her jaw. This occurred just prior to arrival in the emergency department. It lasted for approximately 15 minutes. She states she had one episode similar to this last week but it was very brief and she did not think much of it. No associated shortness of breath. She is completely asymptomatic at this time. She does not take anything for. She denies any leg swelling or calf pain. She was recently admitted to the hospital as she had fluid buildup on her lungs and legs after delivering her baby. She is getting much better from this and has 4 days left of Lasix. She was worked up for cardiomyopathy but they did not find this. She denies any personal history of CAD or DVT/PE. She denies any recent cough except mild in the mornings. No fevers or chills. She denies a smoking history. No back pain, abdominal pain or nausea/vomiting. [facility] Medical History Anxiety and depression Infertility Polycystic ovaries depression Seizures Home Medications vit,[id number] 1 tab PO DAILY 07/28/16 [History Last Taken 07/17/20] citalopram 20 mg PO DAILY 07/17/20 [History Last Taken 07/17/20] furosemide 20 mg tablet 20 mg PO DAILY 07/23/20 [History Last Taken Unknown] potassium chloride 20 mEq tablet,extended release(part/cryst) 20 meq PO DAILY 07/23/20 [History Last Taken Unknown] Allergy/AdvReac Type Severity Reaction Status Date / Time adhesive Allergy Mild Unknown Verified 08/10/20 16:55 latex Allergy Unknown Verified 08/10/20 16:55 Sulfa (Sulfonamide Allergy Hives Verified 08/10/20 16:55 Antibiotics) Family History Grandmother Diabetes Hypertension Aunt Breast cancer Lupus Grandfather Heart disease Myocardial infarction Unknown Uterine cancer Surgical History History of tonsillectomy History of wisdom tooth extraction, class II edentulism Social History adopted: No household members: family number of children: 1 Smoking Status: Never smoker second hand exposure: No alcohol intake: never substance use type: does not use caffeine: Yes what type of physical activity do you participate in: none seatbelt use: always do you feel safe at home: Yes additional social history: Shalini Santoyo at the [facility] ED Constitutional Constitutional ED: Denies chills or fever(s) Eyes Eyes: Denies change in vision ENT ENT ED: Denies epistaxis or rhinorrhea Cardiovascular Cardiovascular: Reports chest pain; Denies palpitations Respiratory/Chest Respiratory/Chest: Denies cough, dyspnea or dyspnea on exertion Gastrointestinal Gastrointestinal: Denies abdominal pain, diarrhea, nausea or vomiting Genitourinary Genitourinary ED: Denies dysuria, hematuria or urinary frequency Musculoskeletal Musculoskeletal: Denies back pain or neck pain Integumentary Denies rash Neurologic Neurologic: Denies dizziness, headache(s) or weakness EXAM Physical Exam Const Vital Signs: 08/10/20 16:51 08/10/20 16:56 Temperature 98.2 F Temperature Source Oral Pulse Rate 81 Respiratory Rate 17 Respiratory Effort Normal Non-Labored Blood Pressure 96/84 H Blood Pressure Mean 88 Pulse Ox 98 Oxygen Delivery Method Room Air Positive well nourished and well developed General Appearance ED: well developed and NAD HEENT Reports normocephalic, head/scalp atraumatic and moist mucous membranes Eyes PERRL and EOMs intact bilaterally Neck supple Chest Wall inspection of chest normal Resp normal respiratory effort and clear to auscultation bilaterally Auscultation: Negative for rales, rhonchi or wheezes Cardio regular rate, regular rhythm and no murmurs GI normal to inspection, nondistended, normoactive bowel sounds and non-tender Palpation: soft; Negative for guarding or rebound tenderness present Extremity normal to inspection General Extremety ED: Negative for edema or tenderness General Extremity: Negative for edema Neuro no sensory deficits noted Sensorium / Orientation: alert Motor Exam: strength 5/5 throughout Psych mental status grossly normal Skin no rashes or lesions noted Heart Score History: Slightly/Non-Suspicious ECG: Normal Age: </= 45 years Risk Factors: No Risk Factors Score: 0 MDM MDM MDM Narrative Medical decision making narrative: Patient presents to the emergency department for an episode of chest pain that radiated to her jaw. She is completely asymptomatic at this time. Her blood pressure is mildly low but she states that this is normal for her. The rest of her vital signs are within normal limits. She has a benign exam. She is completely asymptomatic at this time. EKG obtained which did not show any signs of ischemia or arrhythmia. Will check basic lab work and x-ray. Low concern for thromboembolism or aortic catastrophe. She has a low heart score. She is PERC negative. Patient's lab work shows a white blood cell count of 13.2. She is not anemic anymore. Her electrolytes are within normal limits. Her troponin is negative. BNP within normal limits. Chest x-ray did not reveal any acute cardiopulmonary abnormality. She has been stable throughout ED stay. No repeat symptoms. This time I do feel she is stable for discharge. She is to follow-up with her PCP. If she develops any repeat symptoms or worsening symptoms she is to return to the ED. She understands and is agreeable with this plan. EKG Initial EKG: Attestation: I personally reviewed and interpreted this EKG as follows: (Rate of 78 bpm normal sinus rhythm. Normal intervals. Normal axis. No significant ST elevations or depressions. No T wave abnormalities.) Discharge Plan Triage Chief Complaint: Chest Pain ED Provider: Michael Christopher Dx/Rx/DC Orders Clinical Impression: Chest pain Instructions: ED Chest Pain, Noncardiac Prescriptions: No Action furosemide [Lasix] 20 mg tablet 20 mg PO DAILY RF: 0 potassium chloride [Klor-Con M20] 20 mEq tablet,ER particles/crystals 20 meq PO DAILY RF: 0 vit,[id number] 1 TABLET tablet 1 tab PO DAILY RF: 0 citalopram 20 mg tablet 20 mg PO DAILY RF: 0 Primary Care Provider: Hari Stokes Referrals: Hari Stokes MD [Primary Care Provider] - 3-5 Days Disposition Disposition: Home, Self Care Discharge Date/Time: 08/10/20 18:01
--- NOTE | 2020-08-10 17:07 | RAD_ITS ---
STUDY: X-RAY CHEST REASON FOR EXAM: Female, 35 years old. chest pain TECHNIQUE: Single AP portable view of the chest. COMPARISON: 07/17/2020 FINDINGS: The lungs are clear and expanded. There is no demonstrated pleural abnormality. Normal size heart. Normal mediastinum and georgi. Normal visualized pulmonary arteries. Normal visualized aortic arch and descending thoracic aorta. Normal visualized thoracic spine. Normal visualized ribs, clavicles, and shoulders. There is no demonstrated abnormality of the visualized soft tissue structures of the upper abdomen. RAD/Chest 1 View (Portable) IMPRESSION: Normal x-ray examination of the chest. Electronically Signed: Elvin Patino MD at 17:41 EDT Tel , Service support ,
[2020-08-10 17:12] LABS: Absolute Lymphocyte Count 2.94 X10^3/uL (0.83-4.51); Absolute Neutrophil Count 8.2 X10^3/uL (2.0-7.7); Basophil% 0.8 % (0-1); Eosinophil# 0.64 X10^3/uL; Eosinophils% 4.8 % (0-5); Hematocrit 40.6 % (37-47); Hemoglobin 12.4 g/dL (12.0-15.0); Lymphocyte # 2.94 X10^3/ul (0.83-4.51); Lymphocyte % 22.3 % (19-41); Mean Corp Hgb Conc 30.5 g/dL (32-36); Mean Corpuscular Hgb 26.8 pg (27.0-32.0); Mean Corpuscular Volume 87.7 fL (81-99); Mean Platelet Vol. 9.2 fl (6.2-12.0); Monocyte# 1.24 X10^3/uL; Monocyte% 9.4 % (0-10); NRBC Flagged by Analyzer 0 % (0-5); Neutrophil # 8.21 X10^3/uL (2.7-7.7); Neutrophil % 62.2 % (47-70); Platelet Count 635 K/mm3 (150-450); RBC Distribution Width CV 14.3 % (11.6-14.6); RBC Distribution Width SD 45.4 fl (35.1-43.9); Red Blood Count 4.63 M/mm3 (4.2-5.4); White Blood Count 13.2 K/mm3 (4.4-11.0)
[2020-08-10 17:18] LABS: Anion Gap 6 (5-15); BUN 17 mg/dL (7-18); BUN/Creat Ratio 19.3 RATIO (10-20); Calcium,Total 8.8 mg/dL (8.5-10.1); Chloride 106 mmol/L (98-107); Creatinine, Serum 0.88 mg/dL (0.55-1.02); EST Glomerular Filtration Rate 79 mL/min (>60); Est Glom Filt Rate - Afr Amer 95 mL/min (>60); Estimated Creatinine Clearance 78.52 ml/min; Glucose 95 mg/dL (74-106); Magnesium 2.5 mg/dL (1.6-2.6); Potassium 3.9 mmol/L (3.5-5.1); Sodium Level 139 mmol/L (136-145); Troponin-I HS < 3.0 pg/mL (3.0-53.7)
[2020-08-10 17:32] LABS: BNP,B-Type NATRIURETIC PEPTIDE 12.3 pg/mL (0-100)
[2020-08-10 17:57] VITALS: BP 112/83; PULSE 71; RESP 16; O2SAT 97
== END 2020-08-10 18:01 | disposition home or self-care (01) ==
PROVIDERS: Emergency Provider Emergency Medicine; PCP Family Medicine
DX: R07.9 Chest pain, unspecified (principal); F32.9 Major depressive disorder, single episode, unspecified; Z79.899 Other long term (current) drug therapy
CPT/HCPCS: 71045; 80048; 83735; 83880; 84484; 85025; 93005; 99284; A4216

== ENCOUNTER 2020-11-23 15:52 | Outpatient (RCR) | payer OTHER, SELFPAY ==
--- NOTE | 2020-11-23 17:09 | HP.PTEVAL_ITS ---
Patient's Visit Information GUS KELLEY is a 35 year old F referred to Physical Therapy by Dr. Alysha Freire MD with a diagnosis of SEPERATION OF MUSCLE. Date of Evaluation: 11/23/20 Physical Therapist: Trisha Guaman PT, Cert MDT - Visit Plan Frequency: 2x /Week Duration: 2-4 Weeks Plan: THER EX TO STRENGTHEN TA TO PROMOTE CORE STABILIZATION AND CLOSING THE GAP OF THE RECTUS ABDOMINIS. 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 OTHER: HAD SECOND BABY JULY 11 2020. NATURAL X 2. Disability: NO. Present symptoms: NO PAIN. SOME CONSTIPATION AND BOWEL ISSUES (INSTRUCTED PATIENT TO DISCUSS WITH HER DOCTOR TOO). MOSTLY JUST NOTICING CONE SHAPE OF ABDOMEN RISING FROM LYING. Present since: ACTUALLY NOTICED THIS AFTER FIRST CHILD THAT WAS BORN 2.5 YEARS AGO. Pain Scale: N/A. Commenced as a result of: . Symptoms at onset: CONE SHAPED APPEARANCE TO ABDOMIN TRANSFERING FROM SUPINE TO SIT. Treatment this episode: NONE - JUST PT CONSULT. Coughing/sneezing/strain ing: NEGATIVE. Gait: NORMAL. Difficulty initiating urination: NO. Accidents: FALL 2015 - TAKING DOGS OUT. SLIPPED ON WET DECK AND LANDED ON STEP AND TORE BACK MUSCLE - BULGE. STATES SHE THINKS HER BODY HAS COMPENSTATED AND SHE REALLY DOESN'T FEEL IT MUCH ANYMORE BUT THERE IS A BULGE. Imaging: NONE. PMH: POST PARDUM ANXIETY. - Objective THIS PATIENT AMBULATES INDEP'LY INTO PT WITHOUT ANY GROSS DEVIATIONS. MABEL LE ROM AND STRENGTH IS WFL. LUMBAR AROM IN STANDING IS FULL ALL PLANES. SHE DOES HAVE A SOFT TISSUE BULGE IN THE LEFT LOW BACK/BUTTOCK AREA THAT SHE RELATES TO WHEN SHE HIT HER BACK ON A STEP IN 2015. SHE HAS POOR CORE STENGTH AND A 2 FINGER WIDTH ABDOMINAL SEPERATION ALLOWING A BULGE WHEN THERE IS PRESSURE OUTWARD ON HER ABDOMINAL WALL. TREATMENT: NEUROMUSCULAR REEDUCATION - INTO TO RETRAINING OF MVMT AND POSTURE FOR SITTING, LYING AND STANDING ACTIVITIES. EDUCATED PATIENT ABOUT HER CONDITION CALLED DIASTASIS RECTI AND INSTRUCTED HER TO AVOID SIT UPS, CRUTCHES, OBLIQUE CRUNCHES, PLANKS, HEAVY LIFTING, AND BACK BENDS. RECOMMENDED A PROGRAM TO INCLUDE ACTIVATION OF THE TRANSVERSE ABDOMINUS FOR STABILIZATION ALONG WITH PROPER BREATHING AND SHE IS AGREEABLE. - Balance/Special Test Scores Oswestry Low Back Score: 0 - Goals Goal 1:: DECREASE ABDOMINAL SEPERATION. Goal Time Frame: 2-4 Weeks Goal 2:: PATIENT WILL BE INDEP WITH A HEP FOR CONTINUED IMPROVEMENT ONCE FORMAL PHYSICAL THERAPY CONCLUDES. Goal Time Frame: 2-4 Weeks - Anticipated Interventions Patient/Client Instruction: Educate patient on: Condition, Plan of Care, Risk Factors For the Purpose of:: To improve self management Therapeutic Exercise to Include: Strength training, Body mechanics, Postural training, Neuromotor development, Dynamic Lumbar Stabilization For the Purpose of:: To improve muscle performance and motor function Thank you for the opportunity to evaluate your patient. For Medicare and Medicare HMO plans, please review the plan of care and approve it. It will need to be FAXED BACK to us at [phone] for Medicare purposes. For Medicare only, by signing this I certify the plan of care. Please let me know if there are questions or concerns regarding this plan of care. Physician Signature: Date:__
--- NOTE | 2020-12-10 08:17 | HP.PT.NRP ---
GUS KELLEY was seen in my office for initial evaluation on 11/23/20. The following Plan of Care was established for this patient: Initial Frequency: 2x /Week Initial Duration: 2-4 Weeks Patient/Client Instruction: Educate patient on: Condition, Plan of Care, Risk Factors For the Purpose of:: To improve self management Therapeutic Exercise to Include: Strength training, Body mechanics, Postural training, Neuromotor development, Dynamic Lumbar Stabilization For the Purpose of:: To improve muscle performance and motor function This patient was last seen in our office . Pertinent comments regarding their Physical therapy will appear below: This patient has not returned to Physical Therapy and is appropriate to return to MD for further follow-up as needed. At this point I will be discontinuing this patient from physical therapy. I would be happy to see this patient again in the future if found appropriate by the physician. Thank you! Trisha Guaman, PT, Cert MDT Balance/Gait/Functional tests - Balance/Special Test Scores Oswestry Low Back Score: 0
== END 2020-11-23 19:00 | disposition home or self-care (01) ==
LOC: PT 15:52
PROVIDERS: PCP Family Medicine; Referring Provider Obstetrics & Gynecology; Visit Provider Obstetrics & Gynecology
DX: M62.08 Separation of muscle (nontraumatic), other site (principal)
CPT/HCPCS: 97112; 97162

== ENCOUNTER → 2021-01-06 07:06 | Outpatient (CLI) | payer OTHER, SELFPAY | PROVIDERS: PCP Family Medicine; Referring Provider Family Medicine; Visit Provider Family Medicine | DX: Z20.822 Contact with and (suspected) exposure to COVID-19 (principal) | CPT/HCPCS: 87635; U0005; U0003 ==

== ENCOUNTER → 2021-01-14 11:26 | Outpatient (CLI) | payer OTHER, SELFPAY ==
[2021-01-14 15:05] LABS: Absolute Lymphocyte Count 1.93 X10^3/uL (0.83-4.51); Basophil# 0.06 X10^3/uL; Basophil% 0.7 % (0-1); Eosinophil# 0.15 X10^3/uL; Eosinophils% 1.7 % (0-5); Hematocrit 40.9 % (37-47); Hemoglobin 12.9 g/dL (12.0-15.0); Lymphocyte # 1.93 X10^3/ul (0.83-4.51); Lymphocyte % 21.8 % (19-41); Mean Corp Hgb Conc 31.5 g/dL (32-36); Mean Corpuscular Hgb 27.3 pg (27.0-32.0); Mean Corpuscular Volume 86.7 fL (81-99); Mean Platelet Vol. 9.8 fl (6.2-12.0); Monocyte# 0.73 X10^3/uL; Monocyte% 8.2 % (0-10); NRBC Flagged by Analyzer 0 % (0-5); Neutrophil # 5.97 X10^3/uL (2.7-7.7); Neutrophil % 67.4 % (47-70); Platelet Count 472 K/mm3 (150-450); RBC Distribution Width CV 14.6 % (11.6-14.6); RBC Distribution Width SD 46.9 fl (35.1-43.9); Red Blood Count 4.72 M/mm3 (4.2-5.4); White Blood Count 8.9 K/mm3 (4.4-11.0)
[2021-01-14 15:25] LABS: Vitamin B12 706 pg/mL (211-911); Vitamin D,25 Hydroxy 26.2 ng/mL
[2021-01-14 15:36] LABS: T4 Free Direct 0.92 ng/dL (0.76-1.46)
== END ==
PROVIDERS: PCP Family Medicine; Referring Provider Family Medicine; Visit Provider Family Medicine
DX: R53.83 Other fatigue (principal)
CPT/HCPCS: 36415; 82306; 82607; 84439; 84443; 85025

== ENCOUNTER → 2021-01-19 09:10 | Outpatient (CLI) | payer OTHER, SELFPAY | PROVIDERS: PCP Family Medicine; Visit Provider Nurse Practitioner Women's Health | DX: R39.15 Urgency of urination (principal) | CPT/HCPCS: 87086; 87088 ==

== ENCOUNTER 2021-01-21 09:00 | Outpatient (CLI) | payer OTHER, SELFPAY | END 2021-01-21 23:59 | disposition short-term general hospital (02) | LOC: LABSPEC 02-15 13:20 | PROVIDERS: PCP Family Medicine; Visit Provider Family Medicine | DX: Z20.822 Contact with and (suspected) exposure to COVID-19 (principal) | CPT/HCPCS: 87633; 87635; U0005; U0003 ==

== ENCOUNTER → 2021-06-17 | Outpatient (CLI) | payer OTHER, SELFPAY ==
[2021-06-17 09:57] LABS: Absolute Lymphocyte Count 1.03 X10^3/uL (0.83-4.51); Absolute Neutrophil Count 3.5 X10^3/uL (2.0-7.7); Basophil# 0.04 X10^3/uL; Basophil% 0.7 % (0-1); Eosinophil# 0.09 X10^3/uL; Eosinophils% 1.5 % (0-5); Hematocrit 40.6 % (37-47); Hemoglobin 13.2 g/dL (12.0-15.0); Lymphocyte # 1.03 X10^3/ul (0.83-4.51); Lymphocyte % 17.7 % (19-41); Mean Corp Hgb Conc 32.5 g/dL (32-36); Mean Corpuscular Hgb 28.4 pg (27.0-32.0); Mean Corpuscular Volume 87.3 fL (81-99); Mean Platelet Vol. 9.6 fl (6.2-12.0); Monocyte# 1.11 X10^3/uL; Monocyte% 19.1 % (0-10); NRBC Flagged by Analyzer 0 % (0-5); Neutrophil # 3.53 X10^3/uL (2.7-7.7); Neutrophil % 60.7 % (47-70); Platelet Count 355 K/mm3 (150-450); RBC Distribution Width CV 13.9 % (11.6-14.6); RBC Distribution Width SD 44.5 fl (35.1-43.9); Red Blood Count 4.65 M/mm3 (4.2-5.4); White Blood Count 5.8 K/mm3 (4.4-11.0)
[2021-06-17 10:25] LABS: Anion Gap 6 (5-15); BUN 11 mg/dL (7-18); BUN/Creat Ratio 12.8 RATIO (10-20); Calcium,Total 8.8 mg/dL (8.5-10.1); Chloride 105 mmol/L (98-107); Creatinine, Serum 0.86 mg/dL (0.55-1.02); EST Glomerular Filtration Rate 81 mL/min (>60); Est Glom Filt Rate - Afr Amer 98 mL/min (>60); Glucose 90 mg/dL (74-106); Potassium 3.9 mmol/L (3.5-5.1); Sodium Level 137 mmol/L (136-145)
== END | disposition home or self-care (01) ==
LOC: MFPLAB 08:52
PROVIDERS: PCP Family Medicine; Visit Provider Family Medicine
DX: R55 Syncope and collapse (principal)
CPT/HCPCS: 36415; 80048; 85025

== ENCOUNTER → 2021-08-12 | Outpatient (CLI) | payer OTHER, SELFPAY ==
--- NOTE | 2021-08-12 14:28 | US_ITS ---
STUDY: ULTRASOUND BREAST - RIGHT REASON FOR EXAM: Female, 36 years old. Pain in the right breast. TECHNIQUE: Axial and longitudinal images of the RIGHT breast were performed with a high resolution ultrasound transducer. # OF IMAGES: 30 COMPARISON: Comparison is made with prior mammogram done earlier today. FINDINGS: RIGHT Breast: The upper-outer quadrant of the right breast was examined with ultrasound. There is evidence of dense fibroglandular tissue. No solid or cystic masses seen. US/Breast Limited Unilateral IMPRESSION: No sonographic abnormality is seen. Routine mammographic follow-up is recommended. ASSESSMENT CATEGORY: BIRADS Category 1: Negative. A letter regarding these results will be sent to the patient by the facility within 30 days. Electronically Signed: Easton Carmen MD at 15:41 EDT ,
--- NOTE | 2021-08-12 14:28 | BI_ITS ---
MAMMOGRAPHY - BILATERAL DIAGNOSTIC REASON FOR EXAM: Female, 36 years old. 2 through 3 month history of the upper outer quadrant right breast pain. PERTINENT HISTORY: Aunts with breast cancer. TECHNIQUE: Digital bilateral breast caitlin (3D mammographic acquisition) in the CC and MLO projections. 2-D mediolateral oblique (MLO) and craniocaudad (CC) views of both breasts were obtained. CAD: Full Field Digital Mammography with Computer Added Detection was performed. COMPARISON: None. Baseline examination. FINDINGS: Breast Composition: The breasts are extremely dense, which lowers the sensitivity of mammography. There are no dominant masses or suspicious calcifications. Benign appearing bilateral axillary lymph nodes. No other significant abnormalities are identified. BI/DIAG MAMM W/CAD, BILAT IMPRESSION: Negative diagnostic mammogram. With the patient''s history of the upper outer quadrant right breast pain, targeted ultrasound is recommended. ASSESSMENT CATEGORY: BIRADS Category 0: Incomplete. Need additional imaging evaluation. A letter regarding these results will be sent to the patient by the facility within 30 days. Approximately 10% of breast cancers are not detected by mammography. A normal mammogram should not delay biopsy of a clinically suspicious abnormality. Electronically Signed: Easton Carmen MD at 15:05 EDT ,
== END | disposition home or self-care (01) ==
LOC: OPBI 14:26
PROVIDERS: PCP Family Medicine; Visit Provider Obstetrics & Gynecology
DX: N64.4 Mastodynia (principal)
CPT/HCPCS: 76642; 77062; 77066; G0279

== ENCOUNTER 2022-02-19 19:24 | Emergency (ER) | payer OTHER, SELFPAY ==
[2022-02-19 19:25] VITALS: BP 126/96; PULSE 91; RESP 18; TEMP 35.5; O2SAT 100; BMI 31.7
[2022-02-19 20:55] VITALS: BP 113/81; PULSE 75; RESP 16; O2SAT 98
--- NOTE | 2022-02-19 20:55 | EKG12_ITS ---
Test Reason : dizziness Blood Pressure : / mmHG Vent. Rate : 070 BPM Atrial Rate : 070 BPM P-R Int : 152 ms QRS Dur : 078 ms QT Int : 390 ms P-R-T Axes : 053 025 045 degrees QTc Int : 421 ms Normal sinus rhythm with sinus arrhythmia Normal ECG Confirmed by ANJUM GONZALEZ, SHYANNE ([id number]), clinical editor HARLEY MERA ([id number]) on 02/21/2022 11:17:45 AM Referred By: Jana Confirmed By:SHYANNE VALERO MD
--- NOTE | 2022-02-19 20:57 | EX.ED.DYSGE1 ---
HPI History of Present Illness Chief Complaint: Dizziness Informant: patient Narrative Narrative: Patient states that she has been having, lightheadedness feeling for the last day or so. Its not vertigo or spinning. There is no neurologic deficit. She just feels like she is overall lightheaded and could pass out. She has not actually passed out. She is never had graying or decreasing of her vision. Never been diaphoretic. She is not short of breath at any time. She has no chest pain or palpitations. No leg pain or swelling. I reviewed her med list on her computer here. However, she states the only med she is on her a multivitamin and vitamin D because she had the same symptoms once before and was found to be low on vitamin D so she has been taking that. She also has a history of cardiomyopathy about a year and a half ago. She was set to follow-up for this but her insurance changed and she made multiple calls to the [facility] but did not hear back and so she never got follow-up. But she has not had any dyspnea or pulmonary symptoms weight gain or edema. Nothing specifically makes this better or worse. She cannot think of anything new or different that cause this. [facility] Medical History Anxiety and depression Infertility Mastitis Obesity Polycystic ovaries depression Seizures Umbilical hernia Home Medications cholecalciferol (vitamin D3) 25 mcg (1,000 unit) capsule 25 mcg PO DAILY 06/01/21 [History Last Taken Unknown] desogestrel 0.15 mg-ethinyl estradiol 0.03 mg tablet (Apri) 1 tab PO QDAY #28 tabs 06/01/21 [Rx Last Taken Unknown] multivitamin 1 tab PO DAILY 07/22/21 [History Last Taken Unknown] citalopram 20 mg tablet 20 mg PO DAILY depression/anxiety #90 tabs 08/04/21 [Rx Last Taken Unknown] Allergy/AdvReac Type Severity Reaction Status Date / Time adhesive Allergy Mild Unknown Verified 02/19/22 19:24 latex Allergy Unknown Verified 02/19/22 19:24 Sulfa (Sulfonamide Allergy Hives Verified 02/19/22 19:24 Antibiotics) Family History Grandmother Diabetes Hypertension Aunt Breast cancer Lupus Grandfather Heart disease Myocardial infarction Unknown Uterine cancer Surgical History History of tonsillectomy History of wisdom tooth extraction, class II edentulism Social History adopted: No household members: family number of children: 1 Smoking Status: Never smoker second hand exposure: No alcohol intake: never substance use type: does not use caffeine: Yes what type of physical activity do you participate in: none seatbelt use: always do you feel safe at home: Yes additional social history: Shalini Santoyo at the [employer] ED Constitutional Constitutional ED: Denies chills, fever(s) or sweats Eyes Eyes: Denies blurry vision, change in vision or diplopia ENT ENT ED: Denies rhinorrhea or sore throat Cardiovascular Cardiovascular: Denies chest pain, palpitations or racing heartbeat Respiratory/Chest Respiratory/Chest: Denies cough, dyspnea or sputum Gastrointestinal Gastrointestinal: Denies abdominal pain, diarrhea, nausea or vomiting Genitourinary Genitourinary ED: Denies dysuria, hematuria or urinary frequency Integumentary Denies rash Neurologic Neurologic: Denies headache(s), paresthesias or weakness Psychiatric Psychiatric: Reports depression Endocrine Endocrinology: Denies polydipsia or polyuria Hematologic/Lymphatic Hematologic/Lymphatic: Denies easy bleeding or easy bruising Allergic/Immunologic Allergic/Immunologic ED: Denies urticaria EXAM Physical Exam Narrative Exam Narrative: Awake alert no acute distress and looks comfortable sitting on the bed. HEENT shows mucous membranes look me be minimally dry but not markedly so. No pallor of lips. No trauma. Eyes have free range of motion normal pupils Neck shows no JVD. Lungs are completely clear including although at the bases. I hear no rales. There is no pain with a deep breath. Heart is regular I do not hear murmur gallop rub or muffled heart tones. Her peripheral pulses are normal x4. Abdomen is soft completely nontender. There is no CVA tenderness Skin shows no rashes pallor diaphoresis or jaundice Extremities show normal pulses normal color, no edema cords asymmetry or tenderness Patient is awake alert appropriate with no vertigo or weakness or numbness. Const Vital Signs: 02/19/22 19:25 02/19/22 20:09 02/19/22 20:55 Temperature 96 F L Temperature Source Temporal Pulse Rate 91 75 Respiratory Rate 18 16 Respiratory Pattern Normal Blood Pressure 126/96 H 113/81 H Blood Pressure Mean 106 91 Pulse Ox 100 98 Oxygen Delivery Method Room Air Room Air 02/19/22 22:00 02/19/22 22:39 Temperature Temperature Source Pulse Rate 62 64 Respiratory Rate 16 15 Respiratory Pattern Blood Pressure 105/80 105/73 Blood Pressure Mean 88 Pulse Ox 96 100 Oxygen Delivery Method Room Air MDM MDM MDM Narrative Medical decision making narrative: My independent interpretation of the patient's single view AP chest x-ray shows no acute process. No infiltrate. No pneumothorax. Cardiac silhouette looks to be normal size and shape. Final reading by radiology is also no acute process. CBC including white count hemoglobin is normal. Platelets have minimal elevation at 509. Electrolytes including kidney function and glucose are all normal. Patient has nonspecific lightheadedness feeling. Her blood pressures been normal here. EKG is normal. X-ray labs are normal. I think she is safe for discharge. We did discuss still following up with her private physician as well as reasons to return. Because of her history of cardiomyopathy, this patient certainly has been increased risks over the average person. For this reason we did do the above evaluation and despite her normal exam and vital signs here. Lab Data Attestation: I reviewed the patient's lab results. Labs: Laboratory Results - last 24 hr 02/19/22 02/19/22 19:32 19:32 WBC 7.7 RBC 4.64 Hgb 13.0 Hct 41.2 MCV 88.8 MCH 28.0 MCHC 31.6 L RDW Std Deviation 45.6 H RDW Coeff of Rosita 14.1 Plt Count 509 H MPV 9.5 Immature Gran % (Auto) 0.300 Neut % (Auto) 47.5 Lymph % (Auto) 35.5 Parke % (Auto) 11.6 H Eos % (Auto) 4.3 Baso % (Auto) 0.8 Absolute Neuts (auto) 3.7 Absolute Lymphs (auto) 2.73 Nucleated RBC % 0 Sodium 140 Potassium 4.0 Chloride 106 Carbon Dioxide 28.0 Anion Gap 6 BUN 14 Creatinine 0.97 Estim Creat Clear Calc 70.57 Est GFR (MDRD) Af Amer 85 Est GFR (MDRD) Non-Af 70 BUN/Creatinine Ratio 14.5 Glucose 96 Calcium 8.8 Radiography Diagnostic Testing: Clinical Impression(s) from Imaging Studies Chest X-Ray 02/19/22 21:20 IMPRESSION: No radiographic evidence of acute cardiopulmonary disease. Electronically Signed: Dorian Olmos MD at 21:38 EST Reading Location ID and State: [address] [place] [address] Tel , Service support , EKG Initial EKG: Comments: My independent interpretation of the patient's EKG done for overall lightheadedness read by me shows a normal sinus rhythm with overall rate of 70. There is no ectopy. There is no acute ST elevation or depression. There is mild sinus arrhythmia which is normal for age. [place] interval, QRS duration and QTc are normal. Discharge Plan Triage Chief Complaint: Dizziness Other Complaint: Syncope ED Provider: Juan Ramon Peralta Dx/Rx/DC Orders Clinical Impression: Light-headedness, cardiomyopathy Instructions: ED Near-Fainting, Uncertain Cause Prescriptions: No Action multivitamin Tablet 1 tab PO DAILY cholecalciferol (vitamin D3) 25 mcg (1,000 unit) capsule 25 mcg PO DAILY desogestrel-ethinyl estradiol [Apri] 0.15-0.03 mg tablet 1 tab PO QDAY Qty: 28 12RF citalopram 20 mg tablet 20 mg PO DAILY Qty: 90 4RF Primary Care Provider: Care Physician,No Primary Referrals: Hari Stokes MD [Med Staff - Active Staff] - 1 Week Care Physician,No Primary [Primary Care Provider] - Activity Restrictions/Additional Instructions: Follow-up with your family doctor or physician as referred to above for recheck. Disposition Disposition: Home, Self Care Discharge Date/Time: 02/19/22 22:42
--- NOTE | 2022-02-19 21:20 | RAD_ITS ---
INDICATION: Lightheaded EXAMINATION/TECHNIQUE: X-RAY - portable upright AP chest x-ray COMPARISON: 08/10/2020 FINDINGS: LINES/DEVICES: None. LUNGS: No consolidation, edema or effusion. No pneumothorax. MEDIASTINUM AND CARDIOVASCULAR STRUCTURES: Cardiac silhouette not enlarged. Central airways and mediastinal contour are unremarkable. BONES AND SOFT TISSUES: Unremarkable. RAD/Chest 1 View (Portable) IMPRESSION: No radiographic evidence of acute cardiopulmonary disease. Electronically Signed: Dorian Olmos MD at 21:38 EST ,
[2022-02-19] MEDS: 0.9% Normal Saline 1,000 ML 1000 ML IV (21:22)
[2022-02-19 21:27] LABS: Absolute Lymphocyte Count 2.73 X10^3/uL (0.83-4.51); Absolute Neutrophil Count 3.7 X10^3/uL (2.0-7.7); Basophil# 0.06 X10^3/uL; Basophil% 0.8 % (0-1); Eosinophil# 0.33 X10^3/uL; Eosinophils% 4.3 % (0-5); Hematocrit 41.2 % (37-47); Lymphocyte # 2.73 X10^3/ul (0.83-4.51); Lymphocyte % 35.5 % (19-41); Mean Corp Hgb Conc 31.6 g/dL (32-36); Mean Corpuscular Volume 88.8 fL (81-99); Mean Platelet Vol. 9.5 fl (6.2-12.0); Monocyte# 0.89 X10^3/uL; Monocyte% 11.6 % (0-10); NRBC Flagged by Analyzer 0 % (0-5); Neutrophil # 3.66 X10^3/uL (2.7-7.7); Neutrophil % 47.5 % (47-70); Platelet Count 509 K/mm3 (150-450); RBC Distribution Width CV 14.1 % (11.6-14.6); RBC Distribution Width SD 45.6 fl (35.1-43.9); Red Blood Count 4.64 M/mm3 (4.2-5.4); White Blood Count 7.7 K/mm3 (4.4-11.0)
[2022-02-19 21:41] LABS: Anion Gap 6 (5-15); BUN 14 mg/dL (7-18); BUN/Creat Ratio 14.5 RATIO (10-20); Calcium,Total 8.8 mg/dL (8.5-10.1); Chloride 106 mmol/L (98-107); Creatinine, Serum 0.97 mg/dL (0.55-1.02); EST Glomerular Filtration Rate 70 mL/min (>60); Est Glom Filt Rate - Afr Amer 85 mL/min (>60); Estimated Creatinine Clearance 70.57 ml/min; Glucose 96 mg/dL (74-106); Sodium Level 140 mmol/L (136-145)
[2022-02-19 22:00] VITALS: BP 105/80; PULSE 62; RESP 16; O2SAT 96
[2022-02-19 22:39] VITALS: BP 105/73; PULSE 64; RESP 15; O2SAT 100
== END 2022-02-19 22:42 | disposition home or self-care (01) ==
PROVIDERS: Emergency Provider Emergency Medicine; Visit Provider Emergency Medicine
DX: O90.3 Peripartum cardiomyopathy (principal); I42.8 Other cardiomyopathies; R42 Dizziness and giddiness
CPT/HCPCS: 71045; 80048; 85025; 93005; 96360; 99284; J7030; A4216

== ENCOUNTER 2022-05-14 11:02 | Emergency (ER) | payer OTHER, SELFPAY ==
[2022-05-14 11:02] VITALS: BP 144/85; PULSE 70; RESP 18; TEMP 36.6; O2SAT 100; BMI 33.8
--- NOTE | 2022-05-14 12:20 | RAD_ITS ---
INDICATION: chest pain EXAMINATION/TECHNIQUE: X-RAY - XR Chest 2 Views COMPARISON: 02/19/2022. FINDINGS: LINES/DEVICES: None. LUNGS: No consolidation, edema or effusion. No pneumothorax. MEDIASTINUM AND CARDIOVASCULAR STRUCTURES: Cardiac silhouette not enlarged. Central airways and mediastinal contour are unremarkable. BONES AND SOFT TISSUES: Unremarkable. Stable exam. RAD/Chest PA and Lateral IMPRESSION: No radiographic evidence of acute cardiopulmonary disease. Electronically Signed: Marshall Rasmussen MD, MICKEY at 12:35 EDT ,
[2022-05-14] MEDS: Aspirin 81 MG TAB.CHEW 324 MG PO (12:24)
[2022-05-14 12:28] VITALS: BP 107/79; PULSE 74; RESP 18; O2SAT 99
[2022-05-14 12:32] LABS: Absolute Lymphocyte Count 2.54 X10^3/uL (0.83-4.51); Absolute Neutrophil Count 3.4 X10^3/uL (2.0-7.7); Basophil# 0.05 X10^3/uL; Basophil% 0.7 % (0-1); Eosinophil# 0.21 X10^3/uL; Eosinophils% 3.1 % (0-5); Hematocrit 42.6 % (37-47); Hemoglobin 13.4 g/dL (12.0-15.0); Lymphocyte # 2.54 X10^3/ul (0.83-4.51); Lymphocyte % 37.1 % (19-41); Mean Corp Hgb Conc 31.5 g/dL (32-36); Mean Corpuscular Hgb 27.8 pg (27.0-32.0); Mean Corpuscular Volume 88.4 fL (81-99); Mean Platelet Vol. 9.7 fl (6.2-12.0); Monocyte# 0.63 X10^3/uL; Monocyte% 9.2 % (0-10); NRBC Flagged by Analyzer 0 % (0-5); Neutrophil # 3.38 X10^3/uL (2.7-7.7); Neutrophil % 49.3 % (47-70); Platelet Count 508 K/mm3 (150-450); RBC Distribution Width CV 13.4 % (11.6-14.6); RBC Distribution Width SD 43.2 fl (35.1-43.9); Red Blood Count 4.82 M/mm3 (4.2-5.4); White Blood Count 6.9 K/mm3 (4.4-11.0)
--- NOTE | 2022-05-14 12:33 | ED.VIS.CHEST ---
HPI History of Present Illness Chief Complaint: Chest Pain Informant: patient Narrative Narrative: Patient is a 36-year-old female with history of cardiomyopathy (followed up with cardiology and apparently everything has resolved), not currently , presenting with chest discomfort. Patient states she was driving the car when all of a sudden she had a throbbing in her left ear with pain rating to her jaw. She then developed tightness and a pressure in the center/bottom of her chest. She notes the symptoms have resolved however the chest tightness has been intermittent. She also has a mild sharp pain in her right shoulder blade. She denies any new activities. Notes she had a similar episode with the jaw pain and was told she could be having esophageal spasm. Patient denies any pleuritic pain. Denies any shortness of breath or cough. Denies any swelling of her legs. Denies any recent immobilization. Is not on any estrogen or control. Denies any history of DVT or PE. No other complaints at this time. [facility] Medical History Anxiety and depression Infertility Mastitis Obesity Polycystic ovaries depression Seizures Umbilical hernia Home Medications cholecalciferol (vitamin D3) 25 mcg (1,000 unit) capsule 25 mcg PO DAILY 06/01/21 [History Last Taken Unknown] desogestrel 0.15 mg-ethinyl estradiol 0.03 mg tablet (Apri) 1 tab PO QDAY #28 tabs 06/01/21 [Rx Last Taken Unknown] multivitamin 1 tab PO DAILY 07/22/21 [History Last Taken Unknown] citalopram 20 mg tablet 20 mg PO DAILY depression/anxiety #90 tabs 08/04/21 [Rx Last Taken Unknown] Allergy/AdvReac Type Severity Reaction Status Date / Time adhesive Allergy Mild Unknown Verified 05/14/22 11:04 latex Allergy Unknown Verified 05/14/22 11:04 Sulfa (Sulfonamide Allergy Hives Verified 05/14/22 11:04 Antibiotics) Family History Grandmother Diabetes Hypertension Aunt Breast cancer Lupus Grandfather Heart disease Myocardial infarction Unknown Uterine cancer Surgical History History of tonsillectomy History of wisdom tooth extraction, class II edentulism Social History adopted: No household members: family number of children: 1 Smoking Status: Never smoker second hand exposure: No alcohol intake: never substance use type: does not use caffeine: Yes what type of physical activity do you participate in: none seatbelt use: always do you feel safe at home: Yes additional social history: Shalini Santoyo at the [facility] ED Constitutional Constitutional ED: Denies chills or fever(s) Eyes Eyes: Denies change in vision ENT ENT ED: Reports ear pain left Cardiovascular Cardiovascular: Reports as per HPI and chest pain; Denies palpitations Respiratory/Chest Respiratory/Chest: Denies cough, dyspnea or dyspnea on exertion Gastrointestinal Gastrointestinal: Denies abdominal pain Genitourinary Genitourinary ED: Denies dysuria or hematuria Musculoskeletal Musculoskeletal: Reports back pain; Denies arthralgias or myalgias Integumentary Denies rash Neurologic Neurologic: Denies paresthesias or weakness Psychiatric Psychiatric: Denies anxiety Hematologic/Lymphatic Hematologic/Lymphatic: Denies easy bleeding or easy bruising EXAM Physical Exam Const Vital Signs: 05/14/22 11:02 05/14/22 11:20 05/14/22 12:26 Temperature 97.8 F Temperature Source Temporal Pulse Rate 70 Respiratory Rate 18 Respiratory Effort Normal Non-Labored Blood Pressure 144/85 H Blood Pressure Mean 104 Pulse Ox 100 Oxygen Delivery Method Room Air Room Air 05/14/22 12:28 05/14/22 13:03 05/14/22 14:27 Temperature Temperature Source Pulse Rate 74 67 74 Respiratory Rate 18 18 18 Respiratory Effort Blood Pressure 107/79 104/79 Blood Pressure Mean 88 87 Pulse Ox 99 100 99 Oxygen Delivery Method Room Air Room Air 05/14/22 15:10 Temperature Temperature Source Pulse Rate 80 Respiratory Rate 16 Respiratory Effort Blood Pressure Blood Pressure Mean Pulse Ox 99 Oxygen Delivery Method Positive well nourished and well developed General Appearance ED: well developed and NAD HEENT Reports TM's clear and moist mucous membranes HEENT Narrative: No dental abnormalities appreciated normocephalic and atraumatic Tympanic Membrane ED: Yes TM's clear Eyes PERRL and EOMs intact bilaterally Neck no lymphadenopathy, supple and no JVD Chest Wall inspection of chest normal and palpation of chest normal Chest: Negative for tenderness Resp normal respiratory effort and clear to auscultation bilaterally Auscultation: Negative for rhonchi or wheezes Cardio regular rate, regular rhythm and no murmurs Peripheral Pulses: pulses 2+ throughout GI normal to inspection, nondistended, normoactive bowel sounds and soft to palpation Back/Spine no CVA tenderness Extremity normal to inspection General Extremety ED: Negative for edema General Extremity: Negative for edema Neuro oriented x3 Sensorium / Orientation: awake Motor Exam: Negative for general weakness Psych mental status grossly normal Skin no rashes or lesions noted and no wounds Heart Score History: Slightly/Non-Suspicious ECG: Normal Age: </= 45 years Risk Factors: 1 or 2 Risk Factors Troponin: </= Normal Limit Score: 1 MDM MDM MDM Narrative Medical decision making narrative: Patient evaluated for sudden onset of chest pain. Patient appears nontoxic in no acute distress. EKG is normal. She is PE RC negative I do not suspect pulmonary emboli and I do not think she needs a D-dimer or CTA at this time. History is complicated with her history of cardiomyopathy however she recently been cleared. Work-up is largely negative. Patient is given aspirin in the ER. She continues to have some intermittent tightness in her epigastric/lower sternal chest region and I question of this could be more GI in nature. We will trial a GI cocktail. I do not think patient requires admission for further cardiac monitoring and her risk of ACS or major cardiac event over the next 30 days is less than 1%. Patient and are counseled on a low acid diet in case this is more of a gastritis/esophageal spasm. Will follow-up outpatient with cardiology (she is already established with Dr. Laboy). Discharged home in stable condition. Is given return precautions. History & Record Review Discussion w/independent historian: Patient Lab Data Attestation: I reviewed the patient's lab results. Labs: Laboratory Results - last 24 hr 05/14/22 05/14/22 05/14/22 11:19 11:19 12:37 WBC 6.9 RBC 4.82 Hgb 13.4 Hct 42.6 MCV 88.4 MCH 27.8 MCHC 31.5 L RDW Std Deviation 43.2 RDW Coeff of Rosita 13.4 Plt Count 508 H MPV 9.7 Immature Gran % (Auto) 0.600 Neut % (Auto) 49.3 Lymph % (Auto) 37.1 Harmon % (Auto) 9.2 Eos % (Auto) 3.1 Baso % (Auto) 0.7 Absolute Neuts (auto) 3.4 Absolute Lymphs (auto) 2.54 Nucleated RBC % 0 Sodium 136 Potassium 3.7 Chloride 106 Carbon Dioxide 28.0 Anion Gap 2 L BUN 11 Creatinine 0.72 Estim Creat Clear Calc 95.07 Est GFR (MDRD) Af Amer 119 Est GFR (MDRD) Non-Af 98 BUN/Creatinine Ratio 15.3 Glucose 90 Calcium 9.2 Total Bilirubin 0.40 AST 19 ALT 26 Alkaline Phosphatase 67 Troponin I High Sens < 3 L Total Protein 7.8 Albumin 3.9 Globulin 3.9 Albumin/Globulin Ratio 1.0 Lipase 93 Urine Test Negative 05/14/22 13:32 WBC RBC Hgb Hct MCV MCH MCHC RDW Std Deviation RDW Coeff of Rosita Plt Count MPV Immature Gran % (Auto) Neut % (Auto) Lymph % (Auto) Harmon % (Auto) Eos % (Auto) Baso % (Auto) Absolute Neuts (auto) Absolute Lymphs (auto) Nucleated RBC % Sodium Potassium Chloride Carbon Dioxide Anion Gap BUN Creatinine Estim Creat Clear Calc Est GFR (MDRD) Af Amer Est GFR (MDRD) Non-Af BUN/Creatinine Ratio Glucose Calcium Total Bilirubin AST ALT Alkaline Phosphatase Troponin I High Sens 4 Total Protein Albumin Globulin Albumin/Globulin Ratio Lipase Urine Test Radiography Chest X-Ray - ED: 2 View, Read by ED Physician, Read by Radiologist and No Acute Disease Diagnostic Testing: Clinical Impression(s) from Imaging Studies Chest X-Ray 05/14/22 12:20 IMPRESSION: No radiographic evidence of acute cardiopulmonary disease. Electronically Signed: Marshall Rasmussen MD, MICKEY at 12:35 EDT , Rhythm Strip Rhythm Strip: Sinus Rhythm Rate: 76 Ectopy: None EKG Initial EKG: Attestation: I personally reviewed and interpreted this EKG as follows: Interpretation: Sinus Rhythm Comments: Normal sinus rhythm rate of 76 bpm Normal axis Normal intervals Normal ST segments Discharge Plan Triage Chief Complaint: Chest Pain ED Provider: Tomeka Fallon Dx/Rx/DC Orders Clinical Impression: Atypical chest pain Instructions: ED Chest Pain, Uncertain Cause Prescriptions: No Action multivitamin Tablet 1 tab PO DAILY cholecalciferol (vitamin D3) 25 mcg (1,000 unit) capsule 25 mcg PO DAILY desogestrel-ethinyl estradiol [Apri] 0.15-0.03 mg tablet 1 tab PO QDAY Qty: 28 12RF citalopram 20 mg tablet 20 mg PO DAILY Qty: 90 4RF Primary Care Provider: Rhonda Tracy Referrals: Rhonda Tracy MD [Primary Care Provider] - FriendAlli DO [Med Staff - Active Staff] - As Needed Activity Restrictions/Additional Instructions: Your work-up here was largely normal but the exact cause of your symptoms today are not clear. You been given referral to GI. Please call your formula clerk office for outpatient follow-up as well. Return if you have a progression or worsening of your symptoms or further concerns. Disposition Disposition: Home, Self Care Discharge Date/Time: 05/14/22 15:33
[2022-05-14 12:45] LABS: BUN 11 mg/dL (7-18); Creatinine, Serum 0.72 mg/dL (0.55-1.02); Glucose 90 mg/dL (74-106)
[2022-05-14 12:46] LABS: AST(SGOT) 19 U/L (15-37); Alanine Aminotransfer ALT/SGPT 26 U/L (13-56); Albumin, Serum 3.9 g/dL (3.2-5.0); Alkaline Phosphatase 67 U/L (45-117); Anion Gap 2 (5-15); BUN/Creat Ratio 15.3 RATIO (10-20); Calcium,Total 9.2 mg/dL (8.5-10.1); Chloride 106 mmol/L (98-107); EST Glomerular Filtration Rate 98 mL/min (>60); Est Glom Filt Rate - Afr Amer 119 mL/min (>60); Estimated Creatinine Clearance 95.07 ml/min; Globulin 3.9 g/dL (2.2-4.2); Lipase 93 U/L (73-393); Potassium 3.7 mmol/L (3.5-5.1); Protein, Total 7.8 g/dL (6.4-8.2); Sodium Level 136 mmol/L (136-145); Troponin-I HS (w/2H Reflex) < 3 pg/mL (3.0-54.0)
[2022-05-14 13:03] VITALS: BP 104/79; PULSE 67; RESP 18; O2SAT 100
[2022-05-14 13:07] LABS: Internal QC Validated? YES +Cl - CLEAR BKGD; Pregnancy, Urine Negative Negative
[2022-05-14 14:22] LABS: Reflex Troponin-HS? (from REC) Y
[2022-05-14 14:27] VITALS: PULSE 74; RESP 18; O2SAT 99
[2022-05-14 14:42] LABS: Troponin-I HS 4 pg/mL (3.0-54.0)
[2022-05-14 15:10] VITALS: PULSE 80; RESP 16; O2SAT 99
[2022-05-14] MEDS: Mag Hydrox/Al Hydrox/Simeth 30 ML UDC PO (15:23)
== END 2022-05-14 15:33 | disposition home or self-care (01) ==
PROVIDERS: Emergency Provider Emergency Medicine; PCP Internal Medicine; Referring Provider Emergency Medicine; Visit Provider Emergency Medicine
DX: R07.89 Other chest pain (principal)
CPT/HCPCS: 71046; 80053; 81025; 83690; 84484; 85025; 93005; 99285; A4216

== ENCOUNTER 2024-05-04 09:47 | Emergency (ER) | payer OTHER, SELFPAY ==
[2024-05-04 09:48] VITALS: BP 115/86; PULSE 70; RESP 16; TEMP 37.2; O2SAT 100; BMI 32.7
--- NOTE | 2024-05-04 10:16 | RAD_ITS ---
PROCEDURE: CHEST PA AND LATERAL 05/04/2024 REASON FOR EXAM: 38-year-old female, back pain, left flank pain. TECHNIQUE: Frontal and lateral views of the chest. COMPARISON: Chest radiograph 05/14/2022. FINDINGS: Hardware: None. Heart: The heart size is normal. Mediastinum: The mediastinal contour is unremarkable. Lungs: No focal consolidation, pleural effusion or pneumothorax. Bones: The bones are unremarkable. RAD/Chest PA and Lateral IMPRESSION: NEGATIVE CHEST Reading Location: [id number]
--- NOTE | 2024-05-04 10:17 | EDS_ITS ---
HPI <Hanna Bright RN - Last Filed: 05/04/24 14:11> History of Present Illness Chief Complaint: Back Detail of Chief Complaint: Thoracic back pain Informant: patient Onset/Context/Timing Onset: Days (4) Context: Sudden Onset Timing: Continuous Quality: Sharp and Burning Location: See diagram and Thoracic Current Severity: 610 Maximum Severity: 10 Worsened by: improves with - (Lying supine) Relieved by: Medications (Ibuprofen) Associated Symptoms Associated Symptoms: Negative for Numbness or Tingling Narrative Narrative: Patient is a 38-year-old female with no significant past medical history who presents to the ED at the request of urgent care for mid thoracic left-sided back pain beginning 4 days prior to arrival. Patient denies injury. Reports this is a sudden onset and describes as burning and sharp. Pain at its worst when in a supine position. Patient reports she is unable to take a deep breath when laying supine due to pain. Patient reports has tried heat, ice, and ibuprofen. Has been taking ibuprofen [id number] with mild improvement of symptoms. She denies fever, dizziness, lightheadedness. Denies cough and chest pain. Denies nausea and vomiting. Denies recent travel. Reports she does have an IUD. Not on control pills. She does report recently starting on magnesium and adrenal supplement on 04/26/2024. She has had some diarrhea and increased urination since then but attributes it to the supplements. Patient does report in the past she has had a similar pain with pneumonia and UTI. She is unable to recall the location of the pain at that time. Prior similar symptoms: Yes Recent Illness/Hospitalization: No PFSH <Hanna Bright RN - Last Filed: 05/04/24 14:11> PFSH Medical History Umbilical hernia Obesity Mastitis depression Anxiety and depression Polycystic ovaries Seizures Infertility Home Medications ?Medication ?Instructions ?Recorded ?Last Taken ?Type multivitamin 1 tab PO DAILY 07/22/21 Unkn own History Allergy/AdvReac Type Severity Reaction Status Date / Time adhesive Allergy Mild Unknown Verified 08/12/22 13:33 latex Allergy Unknown Verified 08/12/22 13:33 Sulfa (Sulfonamide Allergy Hives Verified 08/12/22 13:33 Antibiotics) doxycycline AdvReac Mild Other Verified 05/04/24 09:48 Family History Grandmother Diabetes Hypertension Aunt Breast cancer Lupus Grandfather Heart disease Myocardial infarction Unknown Uterine cancer Surgical History History of wisdom tooth extraction, class II edentulism History of tonsillectomy Social History adopted: No household members: family number of children: 1 Smoking Status: Never smoker second hand exposure: No alcohol intake: never substance use type: does not use caffeine: Yes what type of physical activity do you participate in: none seatbelt use: always do you feel safe at home: Yes additional social history: Shalini Santoyo at the [facility] ROS <Hanna Bright RN - Last Filed: 05/04/24 14:11> ROS ED ROS Narrative Patient denies dizziness, lightheadedness, fever, chills, recent weight loss. Constitutional Constitutional ED: Denies chills, fever(s) or weight loss Eyes Eyes: Denies blurry vision or change in vision ENT ENT ED: Denies ear pain, rhinorrhea or sore throat Cardiovascular Cardiovascular: Denies chest pain, palpitations or racing heartbeat Respiratory/Chest Respiratory/Chest: Denies dyspnea or dyspnea on exertion Gastrointestinal Gastrointestinal: Reports diarrhea; Denies abdominal pain, constipation, nausea or vomiting Genitourinary Genitourinary ED: Reports urinary frequency; Denies dysuria or hematuria Musculoskeletal Musculoskeletal: Reports back pain; Denies arthralgias or neck pain Integumentary Denies rash Neurologic Neurologic: Denies headache(s), paresthesias or weakness Psychiatric Psychiatric: Denies anxiety or depression EXAM <Hanna Bright RN - Last Filed: 05/04/24 14:11> Physical Exam Narrative Exam Narrative: Patient sitting on ED cot, awake, alert, pleasant, and cooperative in no acute distress. Const Vital Signs: 05/04/24 09:48 05/04/24 14:16 Temperature 98.9 F Temperature Source Oral Pulse Rate 70 75 Respiratory Rate 16 16 Blood Pressure 115/86 H 116/78 Blood Pressure Mean 95 90 Pulse Ox 100 99 Oxygen Delivery Method Room Air Positive well nourished and well developed General Appearance ED: well developed and NAD HEENT Reports moist mucous membranes Negative for trauma or tenderness Eyes PERRL and EOMs intact bilaterally Neck no lymphadenopathy, supple and no JVD Chest Wall Chest Narrative: Nontender to palpation. No crepitus noted. Resp normal respiratory effort and clear to auscultation bilaterally Effort and Inspection: Negative for pain with movement Auscultation: Negative for rales, rhonchi or wheezes Cardio regular rate, regular rhythm, S1 normal heart sound and S2 normal heart sound GI normal to inspection, nondistended, normoactive bowel sounds, soft to palpation and non-tender Back/Spine normal to inspection and no thoracic nor lumbar tenderness Back/Spine Narrative: Pain is not reproducible. Extremity normal to inspection and no clubbing, cyanosis or edema General Extremety ED: Negative for edema General Extremity: Negative for edema Neuro oriented x3 and no sensory deficits noted Psych mental status grossly normal Skin no rashes or lesions noted and no wounds Image ED - Body Diagram Man: 2 1. Back pain <Dr. Song Reynolds MD - Last Filed: 05/04/24 16:19> Physical Exam Const Vital Signs: 05/04/24 09:48 05/04/24 14:16 Temperature 98.9 F Temperature Source Oral Pulse Rate 70 75 Respiratory Rate 16 16 Blood Pressure 115/86 H 116/78 Blood Pressure Mean 95 90 Pulse Ox 100 99 Oxygen Delivery Method Room Air MDM <Hanna Bright RN - Last Filed: 05/04/24 14:11> MDM MDM Narrative Medical decision making narrative: IV initiated. CBC obtained to evaluate for infectious process. CMP obtained to evaluate for electrolyte imbalances. Urinalysis obtained to evaluate for infection/hematuria. CT abdomen pelvis will be obtained to evaluate for possible renal calculus. Patient declined pain medication at this time. I have personally performed a face to face assessment of the patient and have reviewed the JALEESA Note. I performed a substantive portion of the visit including all aspects of the following. My gonzalez findings include: History is 38-year-old female complaining of left posterior flank pain since about Monday night. Denies any fall injury or trauma. She did not think she did anything to injure back or flank. It is worse if she lays flat. Otherwise other particular makes it better or worse. She denies any dysuria or hematuria no history of kidney stones there is a family history. She is not short of breath. She denies any history of DVT or PE. No recent travel, surgery, immobilization or hospitalization. No leg pain or swelling. She really has no other symptoms. She has not been sick. Denies any fever or chills. Denies any abdominal pain. Exam is [well-appearing 38-year-old female. Vital signs are stable afebrile. Pulse ox 100% on room air no hypoxia. H EENT exam normal. Moist mucous membranes. Pupils round reactive light. Neck nontender no lymphadenopathy. Lungs clear to auscultation. Heart regular rhythm no murmur rate 70. Chest wall and ribs completely nontender. Abdomen soft nontender. Back there is no reproducible pain. She describes the pain along her left posterior lower rib cage and flank but is not reproducible. There is no rash. There is no discoloration of skin or signs of trauma. She has a normal nontender back exam. Moving all 4 extremities. 5-5 channel turner strength. Dorsi plantarflexion intact. Normal range of motion. No edema or swelling. No calf tenderness. Strong radial pulse. Neurologically she is awake alert no focal motor deficits.] Medical Decision Making [38-year-old with atypical nonreproducible left flank and posterior rib pain that is not reproducible. Chest x-ray was obtained AP and lateral was normal. Will obtain a CT along with a CBC, chemistry and UA for possible kidney stone. This could be musculoskeletal pain but it is really not reproducible on exam.] Other additions or changes: [None] Lab Data Attestation: I reviewed the patient's lab results. Labs: Laboratory Results - last 24 hr 05/04/24 05/04/24 05/04/24 10:38 10:50 13:05 WBC 8.5 RBC 4.82 Hgb 14.1 Hct 41.9 MCV 86.9 MCH 29.3 MCHC 33.7 RDW Std Deviation 42.4 RDW Coeff of Rosita 13.3 Plt Count 449 MPV 9.5 Immature Gran % (Auto) 0.400 Neut % (Auto) 66.6 Lymph % (Auto) 21.8 [place] % (Auto) 8.2 Eos % (Auto) 2.2 Baso % (Auto) 0.8 Absolute Neuts (auto) 5.7 Absolute Lymphs (auto) 1.85 Nucleated RBC % 0 D-Dimer Quant (PE/DVT) 0.27 Sodium 138 Potassium 4.1 Chloride 103 Carbon Dioxide 24.4 Anion Gap 11 BUN 11 Creatinine 0.73 Estim Creat Clear Calc 113.42 Est GFR (MDRD) Non-Af 109 BUN/Creatinine Ratio 14.8 Glucose 78 Calcium 9.5 Urine Color Yellow Urine Clarity Clear Urine pH 7.0 Ur Specific [place] 1.010 Urine Protein Negative Urine Glucose (UA) Normal Urine Ketones Negative Urine Occult Blood 25 H Urine Nitrite Negative Urine Bilirubin Negative Urine Urobilinogen Normal Ur Leukocyte Esterase Negative Urine RBC 0 SEEN Urine WBC 0 SEEN Ur Squamous Epith Cells 0 SEEN Urine Bacteria 0 SEEN Urine Mucus 0 SEEN Urine Test Negative Radiography Diagnostic Testing: Clinical Impression(s) from Imaging Studies Chest X-Ray 05/04/24 10:16 IMPRESSION: NEGATIVE CHEST Reading Location: [facility] Abdomen/Pelvis CT 05/04/24 10:29 IMPRESSION: No acute process appreciated. Reading Location: [facility] Differential Diagnosis Differential Diagnosis: Back sprain Differential Diagnosis: Pulmonary embolism Why less likely: No recent travel, not on hormonal therapy. Differential Diagnosis: Pneumonia Why less likely: Afebrile, no cough, no exposure to illness. Management Discussion w/another healthcare provider: Other (Dr. Reynolds, ED provider) Treatment and Re-Evaluation Narrative: Labs and imaging reviewed. Patient with normal white count 8.5, hemoglobin 14.1, hematocrit 41.9, and platelets 469. Chemistry shows a normal sodium of 138, potassium 4.1, chloride 103 carbon dioxide 24.4, BUN, 11 creatinine 0.73, and glucose 78. Urinalysis negative. CT abdomen pelvis obtained to evaluate for renal calculus which was negative. Patient was given Toradol 30 mg IV for pain. She did obtain mild relief from this rating 6/10. D-dimer is being obtained to evaluate for potential PE which resulted as negative. Patient informed of all lab and imaging results. She is agreeable for discharge. <Dr. Song Reynolds MD - Last Filed: 05/04/24 16:19> [facility] Narrative Medical decision making narrative: I have personally performed a face to face assessment of the patient and have reviewed the JALEESA Note. I performed a substantive portion of the visit including all aspects of the following. My gonzalez findings include: History is 38-year-old female complaining of left posterior flank pain since about Monday night. Denies any fall injury or trauma. She did not think she did anything to injure back or flank. It is worse if she lays flat. Otherwise other particular makes it better or worse. She denies any dysuria or hematuria no history of kidney stones there is a family history. She is not short of breath. She denies any history of DVT or PE. No recent travel, surgery, immobilization or hospitalization. No leg pain or swelling. She really has no other symptoms. She has not been sick. Denies any fever or chills. Denies any abdominal pain. Exam is [well-appearing 38-year-old female. Vital signs are stable afebrile. Pulse ox 100% on room air no hypoxia. H EENT exam normal. Moist mucous membranes. Pupils round reactive light. Neck nontender no lymphadenopathy. Lungs clear to auscultation. Heart regular rhythm no murmur rate 70. Chest wall and ribs completely nontender. Abdomen soft nontender. Back there is no reproducible pain. She describes the pain along her left posterior lower rib cage and flank but is not reproducible. There is no rash. There is no discoloration of skin or signs of trauma. She has a normal nontender back exam. Moving all 4 extremities. 5-5 channel turner strength. Dorsi plantarflexion intact. Normal range of motion. No edema or swelling. No calf tenderness. Strong radial pulse. Neurologically she is awake alert no focal motor deficits.] Medical Decision Making [38-year-old with atypical nonreproducible left flank and posterior rib pain that is not reproducible. Chest x-ray was obtained AP and lateral was normal. Will obtain a CT along with a CBC, chemistry and UA for possible kidney stone. This could be musculoskeletal pain but it is really not reproducible on exam.] Other additions or changes: [None] History & Record Review Additional record(s) reviewed:: Prior inpatient record, Prior outpatient record, Prior ED visit and Prior labs Lab Data Attestation: I reviewed the patient's lab results. Labs: Laboratory Results - last 24 hr 05/04/24 05/04/24 05/04/24 10:38 10:50 13:05 WBC 8.5 RBC 4.82 Hgb 14.1 Hct 41.9 MCV 86.9 MCH 29.3 MCHC 33.7 RDW Std Deviation 42.4 RDW Coeff of Rosita 13.3 Plt Count 449 MPV 9.5 Immature Gran % (Auto) 0.400 Neut % (Auto) 66.6 Lymph % (Auto) 21.8 [place] % (Auto) 8.2 Eos % (Auto) 2.2 Baso % (Auto) 0.8 Absolute Neuts (auto) 5.7 Absolute Lymphs (auto) 1.85 Nucleated RBC % 0 D-Dimer Quant (PE/DVT) 0.27 Sodium 138 Potassium 4.1 Chloride 103 Carbon Dioxide 24.4 Anion Gap 11 BUN 11 Creatinine 0.73 Estim Creat Clear Calc 113.42 Est GFR (MDRD) Non-Af 109 BUN/Creatinine Ratio 14.8 Glucose 78 Calcium 9.5 Urine Color Yellow Urine Clarity Clear Urine pH 7.0 Ur Specific [place] 1.010 Urine Protein Negative Urine Glucose (UA) Normal Urine Ketones Negative Urine Occult Blood 25 H Urine Nitrite Negative Urine Bilirubin Negative Urine Urobilinogen Normal Ur Leukocyte Esterase Negative Urine RBC 0 SEEN Urine WBC 0 SEEN Ur Squamous Epith Cells 0 SEEN Urine Bacteria 0 SEEN Urine Mucus 0 SEEN Urine Test Negative Radiography Chest X-Ray - ED: 2 View, Read by ED Physician, Heart, Lungs, Mediastinum, Bony Structures and No Acute Disease Diagnostic Testing: Clinical Impression(s) from Imaging Studies Chest X-Ray 05/04/24 10:16 IMPRESSION: NEGATIVE CHEST Reading Location: [facility] Abdomen/Pelvis CT 05/04/24 10:29 IMPRESSION: No acute process appreciated. Reading [facility] Chest x-ray, 2 views, AP and lateral, interpreted by myself shows no acute abnormality. Normal cardiac silhouette. Normal mediastinum. Normal lung davis. No infiltrate. No effusions. No pneumothorax. Discharge Plan Triage Chief Complaint: Back ED Provider: Song Reynolds Dx/Rx/DC Orders Clinical Impression: Back pain Instructions: ED Back Sprain/Strain Prescriptions: No Action multivitamin Tablet 1 tab PO DAILY Primary Care Provider: Rhonda Tracy Referrals: Rhonda Tracy MD [Primary Care Provider] - 3-5 Days if not improving Activity Restrictions/Additional Instructions: Motrin for pain and inflammation Tylenol for pain This most likely is musculoskeletal you know is not reproducible. Follow-up with your doctor if not improving. Your test today and CAT scan were normal. Print Language: Ukrainian Disposition Disposition: Home, Self Care Discharge Date/Time: 05/04/24 14:17
--- NOTE | 2024-05-04 10:29 | CT_ITS ---
PROCEDURE: ABDOMEN/PELVIS WITHOUT CONT 05/04/2024 REASON FOR EXAM: LEFT FLANK PAIN TECHNIQUE: Abdomen and pelvis CT without intravenous contrast. Noncontrast technique limits evaluation of the abdominal and pelvic viscera. Coronal and Sagittal reconstruction series were provided. One or more dose reduction techniques were used (e.g., Automated exposure control, adjustment of the mA and/or kV according to patient size, use of iterative reconstruction technique). PATIENT PREPARATION: Per protocol ORAL CONTRAST TYPE: None. AMOUNT: mL COMPARISON: CT of 07/24/2018. FINDINGS: Lung bases: Lungs are clear. No pleural effusions. Liver: Unremarkable size and appearance. Gallbladder: Unremarkable. Spleen: Normal. Pancreas: Unremarkable. Adrenals: Normal size. Worrisome adrenal masses Kidneys: Normal. No nephrolithiasis or hydronephrosis Bladder: Unremarkable. Reproductive Organs: IUD in place and appears satisfactory location. Bowel: Remarkable bowel loops Appendix: No dilated or inflamed appendix Lymph nodes: None Vasculature: Unremarkable Peritoneum / Retroperitoneum: Bones: Unremarkable CT/Abdomen/Pelvis without Cont IMPRESSION: No acute process appreciated. Reading [facility]
[2024-05-04 10:44] LABS: Bacteria 0 SEEN /hpf (None Seen); Mucous, Urine 0 SEEN /hpf (<or=2+); Squamous Epithelial Cells - UA 0 SEEN /hpf (5-10); White Blood Cells 0 SEEN /hpf (0-5)
[2024-05-04 10:45] LABS: Color, Urine Yellow (Yellow); Glucose, Dipstick Normal (Normal); Ketone-Dipstick Negative (Negative); Leukocyte Esterase-Dipstick Negative /ul (Negative); Nitrite-Dipstick Negative (Negative); Occult Blood-Urine 25 /ul (Negative); Protein-Dipstick Negative (Negative); Urine Bilirubin Dipstick Negative (Negative); Urine Clarity Clear (Clear); Urine Urobilinogen Normal (Normal)
[2024-05-04 10:51] LABS: Red Blood Cells-Urine 0 SEEN /hpf (0-5)
[2024-05-04 11:09] LABS: Internal QC Validated? YES +Cl - CLEAR BKGD; Pregnancy, Urine Negative Negative
[2024-05-04 11:17] LABS: Absolute Lymphocyte Count 1.85 X10^3/uL (0.83-4.51); Absolute Neutrophil Count 5.7 X10^3/uL (2.0-7.7); Basophil# 0.07 X10^3/uL; Basophil% 0.8 % (0-1); Eosinophil# 0.19 X10^3/uL; Eosinophils% 2.2 % (0-5); Hematocrit 41.9 % (37-47); Hemoglobin 14.1 g/dL (12.0-15.0); Lymphocyte # 1.85 X10^3/ul (0.83-4.51); Lymphocyte % 21.8 % (19-41); Mean Corp Hgb Conc 33.7 g/dL (32-36); Mean Corpuscular Hgb 29.3 pg (27.0-32.0); Mean Corpuscular Volume 86.9 fL (81-99); Mean Platelet Vol. 9.5 fl (6.2-12.0); Monocyte% 8.2 % (0-10); NRBC Flagged by Analyzer 0 % (0-5); Neutrophil # 5.65 X10^3/uL (2.7-7.7); Neutrophil % 66.6 % (47-70); Platelet Count 449 K/mm3 (150-450); RBC Distribution Width CV 13.3 % (11.6-14.6); RBC Distribution Width SD 42.4 fl (35.1-43.9); Red Blood Count 4.82 M/mm3 (4.2-5.4); White Blood Count 8.5 K/mm3 (4.4-11.0)
[2024-05-04] MEDS: Ketorolac 30 MG/ML Syringe IV (12:25)
[2024-05-04 12:55] LABS: Anion Gap 11 (5-15); BUN 11 mg/dL (4-19); BUN/Creat Ratio 14.8 RATIO (10-20); Calcium,Total 9.5 mg/dL (7.6-11.0); Carbon Dioxide 24.4 mmol/L (21.0-32.0); Chloride 103 mmol/L (98-108); Creatinine, Serum 0.73 mg/dL (0.70-1.20); EST Glomerular Filtration Rate 109 (>60); Estimated Creatinine Clearance 113.42 ml/min (50-250); Glucose 78 mg/dL (70-99); Potassium 4.1 mmol/L (3.3-5.1); Sodium Level 138 mmol/L (133-145)
[2024-05-04 14:01] LABS: D-Dimer Quantitative (DVT/PE) 0.27 FEU/ug/m (0.27-0.49)
[2024-05-04 14:16] VITALS: BP 116/78; PULSE 75; RESP 16; O2SAT 99
== END 2024-05-04 14:17 | disposition home or self-care (01) ==
PROVIDERS: Emergency Provider Emergency Medicine; PCP Internal Medicine; Visit Provider Emergency Medicine
DX: M54.6 Pain in thoracic spine (principal); Z97.5 Presence of (intrauterine) contraceptive device; Z88.2 Allergy status to sulfonamides; Z88.1 Allergy status to other antibiotic agents; Z87.440 Personal history of urinary (tract) infections
CPT/HCPCS: 71046; 74176; 80048; 81001; 81025; 85025; 85379; 96374; 99283; A4216